=== PATIENT | male | born 1945 | race Caucasian/White ===

== ENCOUNTER 2020-03-04 10:54 | Emergency (ER) | payer MEDICARE, OTHER, SELFPAY ==
[2020-03-04 11:04] VITALS: BP 170/96; PULSE 86; RESP 18; TEMP 36.7; O2SAT 95; BMI 29.2
--- NOTE | 2020-03-04 11:23 | CT_ITS ---
WS: [id number] CT ABDOMEN AND PELVIS NONCONTRAST HISTORY: right flank pain TECHNIQUE: Imaging performed through the abdomen and pelvis. Coronal and sagittal reformats are submi tted. All CT scans at [facility] use at least one of these dose optimization techniques: automated exposure control; mA and/or kV adjustment per patient size (includes targeted exams where d ose is matched to clinical indication); or iterative reconstruction. DLP: 1817.56 mGy.cm COMPARISON: 01/20/2018 Lower thorax: Chronic emphysema at the lung bases. No pneumonia. Normal size heart. No hiatal hernia. Liver: Scattered hypodensities throughout the liver have been present on prior studies. Probably repr esenting cysts but cannot further characterize on this exam. There is hepatic steatosis. No bile duct dilatation. Gallbladder: Unremarkable. Pancreas: Normal. Spleen: Normal. Adrenal glands: Normal. Right kidney: Moderate perinephric stranding around the RIGHT kidney. There is mild dilatation of the RIGHT renal pelvis and RIGHT ureter. RIGHT ureter is mildly tortuous throughout its course. At the U V junction there is an ovoid calcification measuring 9 mm which does appear partially extruded into t he bladder. Additional nonobstructing stones scattered throughout the RIGHT renal pelvis. Left kidney: Mild perinephric stranding with no obstruction. 1.2 cm nonobstructing stone in the upper pole. Smaller stone in the lower pole. Normal caliber ureter. Mild atherosclerosis with no aneurysm. There is no free fluid or adenopathy. There is mild mesenteric misting centrally which was also prese nt on the prior study. No lymph nodes. GI tract: No GI tract obstruction. The appendix is not definitely visualized. No evidence for appendi citis. Abdominal wall: Intact. Pelvis: Well-distended urinary bladder. 2 mm calcification in the dependent urinary bladder at the nv dline. Mild prostate gland enlargement with central calcifications. Osseous structures: Slight anterior wedging of L5. No osteoblastic or osteolytic bone disease. CT/CT kidney stone [id number] IMPRESSION: 1. Mild RIGHT hydroureteronephrosis secondary to a 9 mm calcification at the U V junction. 2. Additional 2 mm calcification in the dependent portion of the mid urinary b ladder was probably recently extruded from the ureter. 3. Additional bilateral nephrolithiasis, nonobstructing. 4. Hepatic cysts and hepatic steatosis. 5. Mild prostate enlargement.
--- NOTE | 2020-03-04 11:25 | W.ED.ABDPA2 ---
HPI - Abdominal Pain General: Chief Complaint: Abdominal Pain Stated Complaint: back pain/ real sick Source: patient and family () Mode of arrival: ambulatory Limitations: no limitations History of Present Illness: HPI narrative: 74-year-old male patient with a remote history of lymphoma status post stem cell transplant presents to the emergency department with right flank pain radiating to the right upper quadrant region. Symptoms started about 1 to 2 weeks ago and waxes and wanes. Present symptoms started earlier this morning and is the worst it has been so far. He has associated nausea and vomiting. He is here for evaluation. MD elicited complaint: flank pain Onset (ago): hour(s) (9) Pain Consistency: constant Location: R flank Severity: severe Quality: sharp Radiation: RUQ Exacerbating factors: nothing Relieving factors: nothing Associated Symptoms: Reports nausea and vomiting; Denies chills, dysuria and fever(s) Review of Systems General: Reports: 10 or more systems reviewed and unremarkable except in HPI and below Const: Denies: fever(s), chills or body aches Eyes: Denies: change in vision or blurry vision Card: Reports: chest pain; Denies: palpitations, irregular heart rhythm, edema or swelling of feet/ankles Resp: Denies: dyspnea, productive cough or non-productive cough GI: Reports: nausea and vomiting : Reports: flank pain; Denies: dysuria, urinary frequency, urinary urgency or urinary hesitancy Musc: Denies: neck pain, back pain or extremity swelling Neuro: Denies: headache(s), numbness in extremities or weakness in extremities Endo: Denies: polyuria, polydipsia or tired all the time [facility] ED PFSH: Social History Smoking and tobacco status: former smoker Physical Exam Const: COMMON NORMALS: no acute distress, average body habitus, patient oriented x3, no limitations, healthy appearing, alert and well nourished HENMT: COMMON NORMALS: normocephalic, atraumatic and moist oral mucous membranes HEAD & SCALP: normocephalic and atraumatic Neck/C-Spine: COMMON NORMALS: no meningeal signs and no JVD Chest: COMMONS NORMALS: normal inspection of the chest and normal palpation of entire chest wall Resp: COMMON NORMALS: normal respiratory effort, No retractions, No use of accessory muscles, clear to auscultation bilaterally and percussion normal AUSCULTATION: clear to auscultation bilaterally PERCUSSION: percussion normal Cardio: COMMON NORMALS: no JVD, regular rate, regular rhythm, S1 normal heart sound present, S2 normal heart sound present, No gallops present (Cardio), No clicks present (Cardio), No murmurs present (Cardio), No rub (Cardio) and Peripheral pulses 2+ throughout RATE: regular rate RHYTHM: regular rhythm HEART SOUNDS: S1 normal heart sound present and S2 normal heart sound present PERIPHERAL PULSES: Peripheral pulses 2+ throughout GI: COMMON NORMALS: Normal to inspection, nondistended, normoactive bowel sounds present, Soft to palpation, non-tender, No hepatosplenomegaly present, no masses and no bruits PALPATION: Yes Soft to palpation and Yes No hepatosplenomegaly present : BLADDER/KIDNEY EXAM: Yes CVA tenderness on the right Back/Pelvis: GENERAL BACK: Yes CVA tenderness Extremity: COMMON NORMALS: normal to inspection, full ROM, capillary refill normal, no calf tenderness and no pedal edema Neuro: COMMON NORMALS: patient oriented x3 SENSORIUM/ORIENTATION: Yes alert MENINGEAL SIGNS: Yes no meningeal signs Course Reevaluation(s): Reevaluation #1: Pain has resolved. He feels much better Time: 13:14 Consultations: Consultation #1: Dr. Hidalgo, urology. He would like to see him in the office tomorrow. Since his pain is controlled and no signs of an infection he does not need to be admitted to the hospital. Time: 13:16 Vital Signs: Vital signs: Vital Signs Temperature 98.0 F 03/04/20 11:04 Pulse Rate 78 03/04/20 13:43 Respiratory Rate 20 H 03/04/20 13:43 Blood Pressure 148/84 03/04/20 13:43 Pulse Oximetry 96 03/04/20 13:43 MDM - Abdominal Pain MDM Narrative: Medical decision making narrative: 74-year-old male with new onset urolithiasis with hydronephrosis. He has a 9 mm UV junction calculus which is unlikely to pass. No signs of UTI or sepsis. Pain was well controlled with a single dose of IV ketorolac. He is discharged home to follow-up with the urologist tomorrow for management of the calculus, uncertain whether it cannot be lithotripsy or something different. Differential Diagnosis: Differential diagnosis abdominal pain: Likely abdominal pain, acute appendicitis, calculus of kidney, diverticulitis, gastroenteritis, pancreatitis and small bowel obstruction Medical Records: Attestation: I reviewed the patient's medical records. Lab Data: Attestation: I reviewed the patient's lab results. Labs: Lab Results 03/04/20 03/04/20 03/04/20 Range/Units 11:55 11:55 12:16 WBC 8.3 (4.0-10.0) 10^3/ uL RBC 4.42 (4.1-5.3) 10^6/u L Hgb 15.1 (11.7-16.6) g/dL Hct 43.7 (42.0-52.0) % MCV 98.9 H (80-94) fL MCH 34.2 H (28.0-34.0) pg MCHC 34.6 (30.0-36.0) g/dL RDW 12.1 (12.1-15.1) % Plt Count 125 L (130-400) 10^3/c mm MPV 9.0 (7.4-10.4) fL Neut % (Auto) 90.4 % Lymph % (Auto) 5.4 % [place] % (Auto) 3.5 % Eos % (Auto) 0.0 % Baso % (Auto) 0.2 % Neut # (Auto) 7.5 (1.8-7.7) 10^3/u L Lymph # (Auto) 0.5 L (0.8-4.8) 10^3/u L [place] # (Auto) 0.3 (0.2-0.9) 10^3/u L Eos # (Auto) 0.0 (0.0-0.8) 10^3/u L Baso # (Auto) 0.0 (0.0-0.1) 10^3/u L Nucleated RBC % (a uto) 0 % Nucleated RBCs # 0.0 /100WBC Sodium 139 (136-145) mmol/L Potassium 4.4 (3.5-5.1) mmol/L Chloride 103 (98-107) mmol/L Carbon Dioxide 22 (22-29) mmol/L Anion Gap 18.4 (5-19) BUN 21 (8-23) mg/dL Creatinine 2.0 H (0.7-1.2) mg/dL Glucose 205 H (65-115) mg/dL Calculated Osmolal ity 291 (285-295) mOsm/k g Calcium 10.0 (8.5-10.5) mg/dL Total Bilirubin 0.3 (0.15-1.2) mg/dL AST 20 (0-40) U/L ALT 26 (0-41) U/L Alkaline Phosphata se 100 (40-130) IU/L C-Reactive Protein 6.6 H (0.0-4.9) mg/L Total Protein 6.6 (6.6-8.7) g/dL Albumin 4.5 (3.5-5.2) g/dL Globulin 2.1 (1.3-4.6) g/dL Lipase 19 (13-60) U/L Urine Color Yellow (Yellow) Urine Appearance Clear (CLEAR) Urine pH 5 (5-7) Ur Specific Gravit y 1.025 (1.005-1.030) Urine Protein Neg (Negative) Urine Glucose (UA) Norm (Normal) Urine Ketones 1+ H (Negative) Urine Blood 3+ H (Negative) Urine Nitrate Negative (Negative) Urine Bilirubin Neg (NEGATIVE) Urine Urobilinogen Norm (Negative) mg/dL Ur Leukocyte Patrizia ase Negative (Negative) Urine RBC 40-50 H (0-2) /hpf Urine WBC 0-4 H (0-5) /hpf Ur Squamous Epith Cells 0-4 H (0-5) Calcium Oxalate Cr ystal 0-4 H /hpf Urine Bacteria Trace (NONE) Urine Mucus 1+ Imaging Data ^: CT Abd/Pel: Radiologist's impression: [place] [address] CT Scan Report Signed Patient: Bill Cadet Jr #: [id number] : 6Acct#:[id number] Age/Sex: 74 / MADM Date: 03/04/20 Loc: ERRoom/Bed: Attending Dr: Ordering Provider/Ordering MD: Brit Whiting MD, [facility] Date of Service: 03/04/20 Procedure(s): CT kidney stone 18985 Accession Number(s): [id number] Report Number: [id number] WS: [id number] CT ABDOMEN AND PELVIS NONCONTRAST HISTORY: right flank pain TECHNIQUE: Imaging performed through the abdomen and pelvis. Coronal and sagittal reformats are submitted. All CT scans at [facility] use at least one of these dose optimization techniques: automated exposure control; mA and/or kV adjustment per patient size (includes targeted exams where dose is matched to clinical indication); or iterative reconstruction. DLP: 1817.56 mGy.cm COMPARISON: 01/20/2018 Lower thorax: Chronic emphysema at the lung bases. No pneumonia. Normal size heart. No hiatal hernia. Liver: Scattered hypodensities throughout the liver have been present on prior studies. Probably representing cysts but cannot further characterize on this exam. There is hepatic steatosis. No bile duct dilatation. Gallbladder: Unremarkable. Pancreas: Normal. Spleen: Normal. Adrenal glands: Normal. Right kidney: Moderate perinephric stranding around the RIGHT kidney. There is mild dilatation of the RIGHT renal pelvis and RIGHT ureter. RIGHT ureter is mildly tortuous throughout its course. At the UV junction there is an ovoid calcification measuring 9 mm which does appear partially extruded into the bladder. Additional nonobstructing stones scattered throughout the RIGHT renal pelvis. Left kidney: Mild perinephric stranding with no obstruction. 1.2 cm nonobstructing stone in the upper pole. Smaller stone in the lower pole. Normal caliber ureter. Mild atherosclerosis with no aneurysm. There is no free fluid or adenopathy. There is mild mesenteric misting centrally which was also present on the prior study. No lymph nodes. GI tract: No GI tract obstruction. The appendix is not definitely visualized. No evidence for appendicitis. Abdominal wall: Intact. Pelvis: Well-distended urinary bladder. 2 mm calcification in the dependent urinary bladder at the midline. Mild prostate gland enlargement with central calcifications. Osseous structures: Slight anterior wedging of L5. No osteoblastic or osteolytic bone disease. CT/CT kidney stone [id number] IMPRESSION: 1. Mild RIGHT hydroureteronephrosis secondary to a 9 mm calcification at the UV junction. 2. Additional 2 mm calcification in the dependent portion of the mid urinary bladder was probably recently extruded from the ureter. 3. Additional bilateral nephrolithiasis, nonobstructing. 4. Hepatic cysts and hepatic steatosis. 5. Mild prostate enlargement. Dictated By:Marcella Gracia DO Signed By:Marcella Gracia DOSigned Date/Time:03/04/20 1226 DD/ 1214 Discharge Plan Discharge Patient Disposition: Home, Self-Care Clinical Impression: Calculus of kidney, Hydronephrosis concurrent with and due to calculi of kidney and ureter Condition: Stable Prescriptions: [place] 5-325 mg tablet 1 tab PO Q6H PRN (Reason: pain) Qty: 30 RF: 0 Continued Multiple Vitamins Tablet 1 tab PO DAILY RF: 0 cetirizine 10 mg tablet 10 mg PO DAILY RF: 0 Tylenol Extra Strength 500 mg Tablet 1,000 mg PO PRN RF: 0 tamsulosin 0.4 mg capsule 0.8 mg PO BEDTIME RF: 0 omeprazole 20 mg capsule,delayed release(DR/EC) 20 mg PO DAILY PRN (Reason: unknown) RF: 0 Tylenol PM Extra Strength 25-500 mg Tablet 1 tab PO PRN RF: 0 potassium gluconate 595 mg (99 mg) Tablet 595 mg PO DAILY RF: 0 Probiotic 1 cap PO DAILY RF: 0 Vitamin D3 1 cap PO DAILY RF: 0 Discharge Orders: Discharge Order (Routine); Ordered 03/04/20 Ordered By: Brit Whiting Referrals: Juan Jose Hidalgo MD [Physician] - 03/05/20 7:15 am Salo Spann MD [Family Provider] - Discharge Diet: Usual diet Discharge Activity: Resume usual activity Patient Instructions: Kidney Stones (ED) Activity Restrictions/Additional Instructions: Return for any new or worsening symptoms. Follow-up with Dr. Hidalgo tomorrow as scheduled. Come to the hospital at 7:15 in the morning for an x-ray then proceed to Dr. Hidalgo's office immediately after for evaluation and surgery. Do not eat or drink anything after midnight tonight as you are likely going to have surgery tomorrow. Take the pain medication as needed. Discharge Date/Time: 03/04/20 13:50 Coding Level of Care Code ED Protective Services Social Worker for g Fwd Exam Comprehensive
[2020-03-04] MEDS: ketorolac 30 mg/mL INJ IVP (11:51)
[2020-03-04 12:00] LABS: Basophils % 0.2 %; Hematocrit 43.7 % (42.0-52.0); Hemoglobin 15.1 g/dL (11.7-16.6); Lymphocytes # 0.5 10^3/uL (0.8-4.8); Lymphocytes % 5.4 %; Mean Corpuscular HGB Conc 34.6 g/dL (30.0-36.0); Mean Corpuscular Hemoglobin 34.2 pg (28.0-34.0); Mean Corpuscular Volume 98.9 fL (80-94); Monocytes # 0.3 10^3/uL (0.2-0.9); Monocytes % 3.5 %; Neutrophils # 7.5 10^3/uL (1.8-7.7); Neutrophils % 90.4 %; Nucleated Red Blood Cells % 0 %; Platelet Count 125 10^3/cmm (130-400); Red Blood Count 4.42 10^6/uL (4.1-5.3); Red Cell Distribution Width 12.1 % (12.1-15.1); White Blood Count 8.3 10^3/uL (4.0-10.0)
[2020-03-04 12:14] LABS: Alanine Aminotransferase 26 U/L (0-41); Albumin Level 4.5 g/dL (3.5-5.2); Alkaline Phosphatase 100 IU/L (40-130); Anion Gap 18.4 (5-19); Aspartate Amino Transferase 20 U/L (0-40); Blood Urea Nitrogen 21 mg/dL (8-23); C Reactive Protein 6.6 mg/L (0.0-4.9); Carbon Dioxide 22 mmol/L (22-29); Chloride 103 mmol/L (98-107); Globulin 2.1 g/dL (1.3-4.6); Glucose 205 mg/dL (65-115); Lipase 19 U/L (13-60); Osmolality Calculated 291 mOsm/kg (285-295); Potassium 4.4 mmol/L (3.5-5.1); Sodium 139 mmol/L (136-145); Total Bilirubin 0.3 mg/dL (0.15-1.2); Total Protein 6.6 g/dL (6.6-8.7)
[2020-03-04 12:29] LABS: Bilirubin Urine Neg (NEGATIVE); Blood Urine 3+ (Negative); Glucose Urine UA Norm (Normal); Ketones Urine 1+ (Negative); Leukocyte Esterase Urine Negative (Negative); Nitrate Urine Negative (Negative); Protein Urine Neg (Negative); Specific Gravity, Urine 1.025 (1.005-1.030); Urine Appearance Clear (CLEAR); Urine Color Yellow (Yellow); Urobilinogen Urine Norm (Negative); pH Urine 5 (5-7)
[2020-03-04 12:30] LABS: Add Urine Microscopic? YES
[2020-03-04 12:37] LABS: RBC Urine 40-50 /hpf (0-2); WBC Urine 0-4 /hpf (0-5)
[2020-03-04 12:38] LABS: Add Urine Culture? No; Bacteria Urine TRACE; Calcium Oxalate Crystals Urine 0-4 /hpf; Mucus Urine 1+; Squamous Epithelial Cell Urine 0-4 (0-5)
--- NOTE | 2020-03-04 13:36 | DCPLANNER ---
telecommunications project manager was asked to schedule a follow up appointment for patient with Dr. Hidalgo for tomorrow, 03.05.20. telecommunications project manager called the office of Dr. Hidalgo, spoke with Anay, gave clinic patients information, rehabilitation caseworker told clinic that Dr. Hidalgo wants to see patient tomorrow. A follow up appointment was scheduled for , 03.05.20, with Dr. Hidalgo at 7:15 at hospital for x rays than patient is to go straight to Dr. Weston office. Patient is also to be NPO after midnight. telecommunications project manager informed ED physician, and nurse about appointment. telecommunications project manager informed patient of the scheduled appointment, to go the to hospital for xray, then go to Dr. Weston office, and that he is to NPO after midnight.
[2020-03-04 13:43] VITALS: BP 148/84; PULSE 78; RESP 20; O2SAT 96
--- NOTE | 2020-03-26 14:04 | DCPLANNER ---
Patient did attend appointment scheduled for 03.05.[address] Hidalgo.
== END 2020-03-04 13:50 | disposition home or self-care (01) ==
PROVIDERS: Physician Assistant; Emergency Provider Family Medicine; Family Provider Family Medicine
DX: N13.30 Unspecified hydronephrosis (principal); N20.2 Calculus of kidney with calculus of ureter; Z87.891 Personal history of nicotine dependence
CPT/HCPCS: 12345; 36415; 74176; 80053; 81001; 83690; 85025; 86140; 96374; 96375; 99283; J1885

== ENCOUNTER 2020-03-05 07:17 | Outpatient (CLI) | payer MEDICARE, OTHER, SELFPAY ==
--- NOTE | 2020-03-05 07:15 | XR_ITS ---
WS: [id number] ABDOMEN 1 VIEW(S) HISTORY: calculus COMPARISON: 03/04/2020 CT. Normal bowel gas pattern. Recently described distal RIGHT ureteral calcification is again identified measuring 6.4 mm near the UV junction. Additional bilateral calcifications over each kidney. The largest measures 13 mm over th e upper pole of the LEFT kidney. No bone abnormality. XR/XR KUB [id number] IMPRESSION: 1. No change in position of the 6.4 mm calcification at the RIGHT UVJ. 2. Bilateral nephrolithiasis.
== END 2020-03-05 07:18 | disposition home or self-care (01) ==
LOC: RAD 07:17
PROVIDERS: Visit Provider Urology
DX: N20.0 Calculus of kidney (principal); N28.89 Other specified disorders of kidney and ureter
CPT/HCPCS: 74018; 81001

== ENCOUNTER 2020-03-13 09:36 | Outpatient (CLI) | payer MEDICARE, OTHER, SELFPAY ==
--- NOTE | 2020-03-13 09:30 | XR_ITS ---
WS: [id number] XR KUB [id number] REASON FOR EXAM: Stone FINDINGS: A prominent stone is seen in the left kidney measures 10.39 mm. The lateral right kidney shows smaller stones measuring approximately 3 mm. There is no stones in the region of the ureters or bladder. There is nonspecific gas and fecal stasis. XR/XR KUB 44801 IMPRESSION: Bilateral renal calculus. Note on previous exam a calcified density was seen ju st within the confines of the imaging of the bladder but this is not changed ap pears to be a phlebolith today.
== END 2020-03-13 09:37 | disposition home or self-care (01) ==
LOC: RAD 09:40
PROVIDERS: PCP Emergency Medicine Emergency Medical Services; Visit Provider Urology
DX: N20.0 Calculus of kidney (principal)
CPT/HCPCS: 74018; 81001

== ENCOUNTER 2020-03-16 14:35 | Day surgery (SDC) | payer MEDICARE, OTHER, SELFPAY ==
[2020-03-13 13:29] VITALS: BMI 29.2
--- NOTE | 2020-03-16 | SCC_ITS ---
Procedure Done: 1. Cystoscopy, right retrograde ureteropyelogram, right ureteroscopy, laser lithotripsy, stent 25.8 seconds of fluoroscopic guidance, for a cumulative dose of 8.19 mGy, was provided to Dr. Hidalgo by the radiology department. C-arm images of the abdomen were saved for the patient's permanent record. [facility]
--- NOTE | 2020-03-16 14:52 | SC_ITS ---
WS: [id number] C-ARM RADIOGRAPHS ABDOMEN; IMAGES HISTORY: Right ureteral stone scheduled for ureteroscopic treatment COMPARISON: 03/16/2020 Intraoperative imaging during cystoscopy and RIGHT double pigtail ureteral stent placement. SC/C-arm FL for Urology IMPRESSION: Intraoperative imaging during RIGHT ureteral stent placement.
--- NOTE | 2020-03-16 14:52 | XRR_ITS ---
PROCEDURE INFORMATION: Exam: XR Abdomen, 1 View Exam date and time: 03/16/2020 3:32 PM Age: 74 years old Clinical indication: Screening exam; Other: Pre op; Additional info: Preop right ureteroscopy TECHNIQUE: Imaging protocol: XR of the abdomen. Views: Frontal supine view of the abdomen. 1 View. COMPARISON: CR XR KUB [id number] 03/13/2020 10:08 AM FINDINGS: Gastrointestinal tract: The bowel gas pattern is nonspecific. Bones/joints: Unremarkable. A caliceal stone is present in the left kidney measuring 8 mm x 11 mm this finding is stable since prior examination. XR/XR KUB 95354 IMPRESSION: No acute GI abnormality Stable caliceal stone left kidney
[2020-03-16 15:01] VITALS: BP 145/99; PULSE 83; RESP 18; TEMP 36.8; O2SAT 96
[2020-03-16] MEDS: sodium chloride 0.9% 1,000 ML 30 ML IV (15:15)
--- NOTE | 2020-03-16 15:30 | ANES.PREANE2 ---
Pre-Anesthetic Assessment Pre-Anesthetic Assessment: Height/Weight: Height 1.8 m Weight 95.254 kg Temp Pulse Resp BP Pulse Ox 98.3 F 83 18 145/99 96 03/16/20 15:01 03/16/20 15:01 03/16/20 15:01 03/16/20 15:01 03/16/20 15:01 Preop Diagnosis: Refractory right distal ureteral stone Proposed Procedure: Operation Date: 03/16/20 16:40 Proposed Procedures p Cystoscopy 21026 40981 N20.1(Not Applicable) - Juan Jose Hidalgo MD s Retrograde Pyelogram(Right) - MD jena Arciniega Flexible Ureteroscopy(Not Applicable) - MD jena Arciniega Laser Lithotripsy(Not Applicable) - MD jena Arciniega Ureteral Stent Placement(Not Applicable) - Juan Jose Hidalgo MD Last intake: Intake Last Liquid Date 03/16/20 Last Liquid Time 07:00 Last Solid Date 03/16/20 Last Solid Time 07:00 Social: Social History: No alcohol and No tobacco Exam: Pre-Anes Outpt Exam: alert, oriented x 3, clear to auscultation bilaterally and regular rate & rhythm Airway: Submandibular: WNL Cervical ROM: WNL MP: 2 History/ROS: No significant history except as noted Pulmonary: Pulmonary: None reported CV/HEM: CV/HEM: None reported : Comments: Kidney Stones Hepatic: Hepatic: None reported GI: GI: GERD Metabolic: Comments: Non-Hodgkins Lymphoma Musc/skel: Musc/skel: None reported Neuropsych: Neuropsych: None reported Anesthetic Plan: ASA status: 3 Anesthesia: General Risk of > 500 ml blood loss (7ml/kg in children): No Meds/Allergies Current Medications: Current Medications Generic Name Dose Route Start Last Admin Trade Name Freq PRN Reason Stop Dose Admin Sodium Chloride 1,000 mls @ 30 ml s/hr 03/16/20 08:00 03/16/20 15:15 Sodium Chloride 0.9% IV 03/17/20 07:59 30 mls/hr .Q24H LEIGHANN Administration PFSH Anesthesia PFSH: Medical History Non-Hodgkins lymphoma Renal calculi Right distal ureteral calculus Family History Father , at age 54 Diabetes Heart attack Mother Hypertension Social History Smoking and tobacco status: former smoker Alcohol intake: never Marital status: Current occupational status: employed History of recent travel: No Data Anesthesia Cardiac Studies: No Data to Display
--- NOTE | 2020-03-16 16:35 | W.PM.OPSUD ---
Surgery/Procedure H&P Update DATE OF PROCEDURE: March 16, 2020 DATE H&P PERFORMED: 03/13/20 H&P UPDATE INFORMATION: I have reviewed H&P completed within last 30 days, I have examined patient prior to procedure and No changes to prior documentation PREOP DIAGNOSIS: Refractory right distal ureteral stone PLANNED PROCEDURE: Operation Date: 03/16/20 16:40 Proposed Procedures p Cystoscopy 67056 31971 N20.1(Not Applicable) - Juan Jose Hidalgo MD s Retrograde Pyelogram(Right) - MD jena Arciniega Flexible Ureteroscopy(Not Applicable) - MD jena Arciniega Laser Lithotripsy(Not Applicable) - MD jena Arciniega Ureteral Stent Placement(Not Applicable) - Juan Jose Hidalgo MD
--- NOTE | 2020-03-16 16:35 | PM.OP ---
Operative Report Date of procedure: March 16, 2020 Pre-op Diagnosis: Refractory right distal ureteral stone Post-op diagnosis: same Procedure Done: 1. Cystoscopy, right retrograde ureteropyelogram, right ureteroscopy, laser lithotripsy, stent Pathology: Stone fragments Surgeon: Gwen Anesthesia: General Estimated blood loss: Minimal Urine output: Not measured Complications: None Condition: stable Disposition: PACU Brief History: Mr. Murrieta is a very pleasant 74-year-old white male with a obstructing right distal ureteral stone that failed to progress on conservative management initially. Was having intermittent pain even as recently as today. We reviewed treatment options including ESWL, endoscopy, further waiting to see if he could pass it and ultimately chose to proceed with endoscopy as a more definitive approach given his tight timeline regarding returning to work. Procedure: After routine preoperative evaluation examination and obtaining of informed consent he was taken to the operating suite on 03/16/2020 where general anesthesia was administered without difficulty after appropriate timeout was performed, SCDs confirmed to be functioning, preoperative antibiotics administered, beta-frankie protocol confirmed. Prepped and draped in usual sterile fashion in dorsolithotomy position pain careful attention to voiding pressure points. 21 [place] cystoscope with 30 degree lens was introduced into urethral meatus and advanced into the bladder under videoscopy. Bladder was systematically examined found to be within normal limits. 2 small stones were seen floating free in the bladder. An 8 [place] cone-tipped catheter was intubated into the right ureteral orifice for right retrograde ureteropyelogram which demonstrated normal caliber and course of the distal ureter below the stone, stone in the expected position identified by filling defect, and ureter proximal to the stone showing dilation. No other stones were seen. Flexible tip guidewire was then advanced up the right ureter bypassing the stone curling in the area of the upper renal calyx. The distal ureter below the stone was dilated with a 15 [place] 4 cm balloon to no waist. The wire was secured to the drapes as a safety wire and then a 7.5 [place] offset semirigid ureteroscope was advanced next to the wire up the ureter to the level of the stone and a second stent was also identified both of which were encountered in the expected position. A 365 ?m homing laser fiber was utilized to fragment the stones into small pieces that were then flushed free, removed with basketing and grasping forceps. Final inspection showed no residual significant fragments. Cystoscope was backloaded over the guidewire and a 6 [place] by 28 cm double-pigtail stent was advanced over the guidewire through the cystoscope into appropriate position as confirmed via fluoroscopy and cystoscopy. A string was left attached to the distal end. Tolerated procedure well without complications and was awakened in the operating room and returned to the care of room in stable condition. PLANS: 1. Can remove the stent himself later this week pending his going back to work. If he prefers he can come to the office to have it removed. Follow-up in the office in 3 months with a KUB if he chooses to remove the stent with the string himself.
[2020-03-16] MEDS: levofloxacin-dextrose 5 % 500 MG/100 ML PREMIX 100 MG IV (16:50)
[2020-03-16] MEDS: iohexol 300 mg/mL 50 mL Btl (OR ONLY) XX (17:26)
[2020-03-16 17:48] VITALS: BP 145/87; PULSE 97; RESP 16; TEMP 36.5; O2SAT 95
--- NOTE | 2020-03-16 17:52 | SUR.PHASEI ---
1748 PATIENT TO PACU AT THIS TIME FROM OR. RR EVEN AND UNLABORED. SPO2 95% ON RA.
[2020-03-16 17:55] VITALS: BP 158/81; PULSE 93; RESP 24; O2SAT 94
[2020-03-16 18:00] VITALS: BP 159/96; PULSE 92; RESP 26; O2SAT 93
[2020-03-16 18:05] VITALS: BP 156/99; PULSE 88; RESP 16; TEMP 36.3; O2SAT 95
--- NOTE | 2020-03-16 18:10 | SUR.PHASEI ---
1800 PATIENT TO OPS AT THIS TIME FROM OR. PAIN 5/10, BURNING TO PENIS. DENIES NAUSEA. TOLERATING ICE CHIPS.
[2020-03-16 18:39] VITALS: BP 133/88; PULSE 87; RESP 18; O2SAT 96
[2020-03-21 22:51] LABS: Stone Source URETERAL STONE
== END 2020-03-16 18:40 | disposition home or self-care (01) ==
PROVIDERS: PCP Emergency Medicine Emergency Medical Services; Visit Provider Urology
PROC: 0TJB8ZZ Inspection of Bladder, Via Natural or Artificial Opening Endoscopic (ICD-10-PCS; CPT 52000; principal; 2020-03-16 16:40)
PROC: (CPT 74420; 2020-03-16 16:40)
PROC: 0TJ98ZZ Inspection of Ureter, Via Natural or Artificial Opening Endoscopic (ICD-10-PCS; CPT 52351; 2020-03-16 16:40)
PROC: (CPT 52356; 2020-03-16 16:40)
PROC: (CPT 50605; 2020-03-16 16:40)
DX: N20.1 Calculus of ureter (principal); K21.9 Gastro-esophageal reflux disease without esophagitis; C85.90 Non-Hodgkin lymphoma, unspecified, unspecified site; Z87.891 Personal history of nicotine dependence
CPT/HCPCS: 52356; 12345; 74018; 76000; 82365; 88300; C1725; C2625; J1956; J2001; J2704; J2710; J3010; J3490; J7030

== ENCOUNTER 2020-06-02 08:21 | Outpatient (CLI) | payer MEDICARE, OTHER, SELFPAY ==
--- NOTE | 2020-06-02 08:27 | MR_ITS ---
WS: [id number] MRI HEAD WITHOUT CONTRAST IACs TECHNIQUE: Sagittal T1, T2 axial, T2 axial FLAIR, axial and coronal T1 images, axial susceptibility w eighted imaging, axial diffusion weighted images, and coronal T2 images were obtained. High-resolutio n axial and coronal T2 imaging with attention to the IACs CLINICAL INFORMATION: DIZZINESS AND GIDDINESS COMPARISON: MRI 2 12,013 FINDINGS: No evidence of restricted diffusion to suggest acute ischemia. Ventricular system and basal cisterns are patent. Moderate small vessel changes. Moderate parenchymal volume loss. Cavum septum pellucidum and vergae. Normal posterior fossa. Normal vascular flow voids at the skull base. Paranasal sinuses a nd mastoid air cells well aerated. No hemosiderin on the susceptibility weighted images. Proximal 7th and 8th cranial nerves are normal in appearance. Normal trigeminal nerve root entry zone s. Mild symmetric atrophy involving the temporal lobes and hippocampal formations. MR/MR iac's wo con [id number] IMPRESSION: 1. No evidence of restricted diffusion to suggest acute ischemia. 2. Mild small vessel changes with moderate parenchymal volume loss. 3. Proximal 7th and 8th cranial nerves are normal in appearance. Normal trigem inal nerve root entry zones. 4. Mild mucosal thickening in the mastoid air cells. Paranasal sinuses are wel l aerated.
== END 2020-06-02 08:22 | disposition home or self-care (01) ==
LOC: RADSHAW 08:24
PROVIDERS: PCP Emergency Medicine Emergency Medical Services; Visit Provider Specialist
DX: R42 Dizziness and giddiness (principal)
CPT/HCPCS: 70551

== ENCOUNTER 2020-06-03 09:35 | Outpatient (CLI) | payer MEDICARE, OTHER, SELFPAY ==
--- NOTE | 2020-06-03 09:30 | XRR_ITS ---
PROCEDURE INFORMATION: Exam: XR Abdomen, 1 View Exam date and time: 06/03/2020 9:54 AM Age: 74 years old Clinical indication: Condition or disease; Kidney or ureter condition; Other: Stone TECHNIQUE: Imaging protocol: XR of the abdomen. Views: Frontal supine view of the abdomen. 1 View. COMPARISON: CR XR KUB [id number] 03/16/2020 3:27 PM FINDINGS: Gastrointestinal tract: No dilated gas-filled loops of bowel. Organs: There is a dominant 11 mm left renal calculus. This is unchanged. There appears to be a new smaller adjacent calculus measuring approximately 4-5 mm in size. There is a 4-5 mm x 2 mm calculus in the inferior pole the left kidney, not significantly changed. No radiopaque right renal calculus is identified. However, the right kidney is at least partially obscured by enteric contents in overlying bowel. Bones/joints: No acute osseous abnormality. XR/XR KUB [id number] IMPRESSION: Left nephrolithiasis, suspected to be slightly worse.
== END 2020-06-03 09:36 | disposition home or self-care (01) ==
LOC: RAD 09:41
PROVIDERS: PCP Emergency Medicine Emergency Medical Services; Visit Provider Urology
DX: N20.0 Calculus of kidney (principal)
CPT/HCPCS: 74018; 81001

== ENCOUNTER 2021-01-13 09:48 | Outpatient (CLI) | payer MEDICARE, OTHER, SELFPAY ==
--- NOTE | 2021-01-13 | US_ITS ---
WS: [id number] ULTRASOUND RENAL TECHNIQUE: Ultrasound examination of both kidneys. CLINICAL INFORMATION: URINARY RETENTION COMPARISON: None. FINDINGS: RIGHT: Right kidney is normal in size and appearance. Echogenicity: Normal. Cortical thickness: 1.6 cm; Normal. Hydronephrosis: None. Perinephric fluid: None. Right kidney measures: 10.2 cm x 5.2 cm x 5.7 cm. LEFT: Non-obstructing 14 mm left inferior pole renal calculus. Left kidney is normal in size and appearance. Echogenicity: Normal. Cortical thickness: 1.1 cm; Normal. Hydronephrosis: None. Perinephric fluid: None. Left kidney measures: 8.7 cm x 5.0 cm x 5.4 cm. Normal visualized aorta. Normal bladder. US/US renal BI* [id number] IMPRESSION: 1. Nonobstructing 14 mm left renal parenchymal calculus. 2. No hydronephrosis in either kidney. 3. Normal bladder.
[2021-01-13 12:18] LABS: Alanine Aminotransferase 16 U/L (0-41); Albumin Level 4.3 g/dL (3.5-5.2); Alkaline Phosphatase 79 IU/L (40-130); Anion Gap 13.3 (5-19); Aspartate Amino Transferase 15 U/L (0-40); Blood Urea Nitrogen 18 mg/dL (8-23); Calcium 9.2 mg/dL (8.5-10.5); Carbon Dioxide 27 mmol/L (22-29); Chloride 108 mmol/L (98-107); Globulin 1.9 g/dL (1.3-4.6); Glucose 97 mg/dL (65-115); Osmolality Calculated 300 mOsm/kg (285-295); Potassium 4.3 mmol/L (3.5-5.1); Sodium 144 mmol/L (136-145); Total Bilirubin 0.4 mg/dL (0.15-1.2); Total Protein 6.2 g/dL (6.6-8.7)
== END 2021-01-13 09:49 | disposition home or self-care (01) ==
LOC: US 09:50
PROVIDERS: PCP Emergency Medicine Emergency Medical Services; Visit Provider Nurse Practitioner Family
DX: R33.9 Retention of urine, unspecified (principal); N20.0 Calculus of kidney
CPT/HCPCS: 36415; 76770; 80053

== ENCOUNTER 2021-02-15 13:13 | Outpatient (CLI) | payer MEDICARE, OTHER, SELFPAY ==
--- NOTE | 2021-02-15 13:19 | XRR_ITS ---
PROCEDURE INFORMATION: Exam: XR Abdomen Exam date and time: 02/15/2021 1:20 PM Age: 75 years old Clinical indication: Condition or disease; Kidney or ureter condition; Calculus (stone) in kidney; Patient HX: HX of non hodgkins lymphoma; Additional info: Renal calculi TECHNIQUE: Imaging protocol: XR of the abdomen. Views: Frontal supine view of the abdomen. 1 View. COMPARISON: CR XR KUB [id number] 06/03/2020 9:49 AM FINDINGS: Gastrointestinal tract: Normal. No bowel dilation. Organs: A caliceal stone is seen in the central collecting system of the left kidney stable since prior examination. This finding measures 10 mm Bones/joints: Unremarkable. XR/XR KUB [id number] IMPRESSION: 1. No acute findings. 2. Stable left urinary tract stone
== END 2021-02-15 13:14 | disposition home or self-care (01) ==
LOC: RAD 13:16
PROVIDERS: PCP Emergency Medicine Emergency Medical Services; Visit Provider Urology
DX: N21.0 Calculus in bladder (principal)
CPT/HCPCS: 74018; 81003

== ENCOUNTER 2021-03-24 13:33 | Observation (INO) | payer MEDICARE, OTHER, SELFPAY ==
[2021-03-24] VITALS (10 sets, daily range): BP systolic 104–133; BP diastolic 53–71; PULSE 78–87; RESP 16–22; TEMP 36.6–37; O2SAT 93–97; BMI 27.5
--- NOTE | 2021-03-24 15:46 | ECG_ITS ---
[facility] Test Date: 2021-03-24 Pat Name: Seth Cadet Jr Department: Room: Gender: Male [employer]: : [id number] Requested By: Paulie Sharif Order Number: [id number] Rajwinder MD: Rigo Guy M.D. Measurements Intervals [place] Rate: 81 P: -1 VT: 148 QRS: -37 QRSD: 136 T: 11 QT: 397 QTc: 461 Interpretive Statements SINUS RHYTHM WITH OCCASIONAL VENTRICULAR PREMATURE COMPLEXES MARKED LEFT AXIS DEVIATION [QRS AXIS < -30] RIGHT BUNDLE BRANCH BLOCK [120+ ms QRS DURATION, UPRIGHT V1, 40+ ms S IN I/aVL/V4/V5/V6] MINIMAL VOLTAGE CRITERIA FOR LVH, CONSIDER NORMAL VARIANT [MEETS CRITERIA IN ONE OF: R(aVL), S(V1), R(V5), R(V5/V6)+S(V1)] No previous ECG available for comparison Electronically Signed On 03-24-2021 17:47:25 CDT by Rigo Guy M.D. [email or web address]
--- NOTE | 2021-03-24 15:46 | XR_ITS ---
WS: [id number] Exam: XR chest 1V portable [id number] Date/Time of Exam: 03/24/2021 3:52 PM Reason For Exam: cough with yellow sputum Comparison 01/20/2018. The lungs are fully expanded. Coarsening of interstitial markings probably representing chronic luna e. No consolidated infiltrates or pleural effusions. Normal cardiomediastinal structures. Regional [place] elements are intact. XR/XR chest 1V portable [id number] IMPRESSION: 1. Coarsening of interstitial markings throughout both lungs probably chronic i n nature. No consolidated infiltrates identified.
--- NOTE | 2021-03-24 15:49 | ED_ITS ---
Documented by User: MARCOS Wu 03/25/21 20:49 HPI - General Adult General: Chief complaint: General Medical Stated complaint: ABD PAIN, N/V Time Seen by Provider: 03/24/21 15:36 History of Present Illness: HPI narrative: Patient is a 75-year-old male comes to the ED with abdominal pain and weakness. Patient was seen at the emergency department and [facility] on Monday and diagnosed with bronchitis and discharged home with a Z-Fransisco. He was tested for COVID-19 there as well and it was negative. Patient's been taking the Z-Fransisco and he has not felt like he has had any improvement. He also now has developed some severe episode lower abdominal pain. He has had a productive cough for almost a week and he says he spits up yellow sputum. Cough is still not improved since being on Z-Fransisco. He says that his appetite has decreased as well and he has generalized weakness. Denies chest pain, fevers, chills, nausea/vomiting, dysuria, hematuria, diarrhea, blood in the stool, black tarry stool. Associated symptoms: Reports malaise; Deny chest pain, dyspnea, headache(s), nausea, rash, palpitations or vomiting Review of Systems Const: Reports: change in appetite (decreased), fatigue (Generalized weakness) and malaise; Denies: fever(s) or chills Eyes: Denies: change in vision or eye discomfort ENMT: Reports: nasal discharge and nasal congestion; Denies: throat pain or odynophagia Card: Denies: chest pain, palpitations, edema, swelling of feet/ankles, dyspnea on exertion or orthopnea Resp: Reports: productive cough and change in phlegm color (Yellow); Denies: dyspnea or non-productive cough GI: Reports: abdominal pain; Denies: nausea, vomiting, diarrhea, constipation, hematochezia or melena : Denies: flank pain, difficulty urinating, dysuria or hematuria Musc: Denies: neck pain, back pain or extremity swelling Skin/Breast: Denies: rash or new lesions Neuro: Denies: headache(s), numbness in extremities or weakness in extremities PFS ED PFSH: Medical History BPH loc w urin obs/LUTS Incomplete bladder emptying Non-Hodgkins lymphoma Renal calculi Right distal ureteral calculus Family History Father , at age 54 Diabetes Heart attack Mother Hypertension Social History Smoking and tobacco status: former smoker Alcohol intake: never Marital status: Current occupational status: employed History of recent travel: No Physical Exam Const: COMMON NORMALS: no acute distress, patient oriented x3 and alert GENERAL APPEARANCE: cooperative and comfortable HENMT: COMMON NORMALS: normocephalic HEAD & SCALP: normocephalic MOUTH: Normal oral and palatal mucosa present THROAT: posterior oropharynx normal and uvula midline Neck/C-Spine: COMMON NORMALS: supple GENERAL: Yes normal visual inspection Resp: COMMON NORMALS: normal respiratory effort, No retractions, No use of accessory muscles and clear to auscultation bilaterally EFFORT & INSPECTION: Yes able to speak in complete sentences, No tachypneic, No respiratory distress, No labored and Yes Actively coughing productive AUSCULTATION: clear to auscultation bilaterally Cardio: COMMON NORMALS: regular rate, regular rhythm, S1 normal heart sound present, S2 normal heart sound present, No gallops present (Cardio), No clicks present (Cardio), No murmurs present (Cardio) and Peripheral pulses 2+ throughout RATE: regular rate RHYTHM: regular rhythm HEART SOUNDS: S1 normal heart sound present and S2 normal heart sound present PERIPHERAL PULSES: Peripheral pulses 2+ throughout GI: COMMON NORMALS: Normal to inspection, nondistended, normoactive bowel sounds present, Soft to palpation and no masses PALPATION: Yes Soft to palpation and Yes Tenderness to palpation present (GI) (Generalized lower abdominal tenderness. No focal point tenderness) Details: LLQ and RLQ : COMMON NORMALS: Yes no CVA tenderness BLADDER/KIDNEY EXAM: Yes no CVA tenderness Back/Pelvis: COMMON NORMALS: no CVA tenderness Extremity: COMMON NORMALS: normal to inspection and no pedal edema Neuro: COMMON NORMALS: patient oriented x3 and moves all extremities SENSORIUM/ORIENTATION: Yes alert Skin: GENERAL SKIN EXAM: dry skin Procedures Stool Hemoccult Procedural Steps Taken: stool placed in appropriate test area, developer placed on stool and control areas and controls appropriately positive and negative Hemoccult result: negative Additional Comments: digital rectal exam performed to obtain test. Course Vital Signs: Vital signs: Vital Signs Temperature 97.9 F 03/25/21 16:23 Pulse Rate 75 03/25/21 19:57 Respiratory Rate 14 03/25/21 19:57 Blood Pressure 127/81 03/25/21 19:57 Pulse Oximetry 93 03/25/21 19:57 [facility] - General Adult Lab Data: Attestation: I reviewed the patient's lab results. Labs: Lab Results 03/24/21 03/24/21 03/24/21 Range/Units 15:56 15:56 15:56 WBC 5.5 (4.0-10.0) 10^3/ uL RBC 3.56 L (4.1-5.3) 10^6/u L Hgb 7.8 L (11.7-16.6) g/dL Hct 25.8 L (42.0-52.0) % MCV 72.5 L (80-94) fL MCH 21.9 L (28.0-34.0) pg MCHC 30.2 (30.0-36.0) g/dL RDW 27.8 H (12.1-15.1) % Plt Count 180 (130-400) 10^3/c mm MPV 13.0 H (7.4-10.4) fL Lymph % (Auto) Not Reportable [place] % (Auto) Not Reportable Lymph # (Auto) Not Reportable [place] # (Auto) Not Reportable Total Counted (0-100) Atypical Lymphs % (0-5) % Segmented Neutroph ils % Band Neutrophils % Lymphocytes (Manua l) % Monocytes (Manual) % Eosinophils (Manua l) % Basophils (Manual) % Metamyelocytes % Promyelocytes % Platelet Estimate (Normal) Dimorphic RBCs 2+ H Poikilocytosis 3+ H Microcytosis Trace Macrocytosis Trace Ovalocytes 1+ H Schistocytes 1+ H Sodium 132 L (136-145) mmol/L Potassium 4.0 (3.5-5.1) mmol/L Chloride 95 L (98-107) mmol/L Carbon Dioxide 24 (22-29) mmol/L Anion Gap 17.0 (5-19) BUN 24 H (8-23) mg/dL Creatinine 1.3 H (0.7-1.2) mg/dL GFR Calculation Not Reportable Glucose 138 H (65-115) mg/dL Calculated Osmolal ity 280 L (285-295) mOsm/k g Calcium 8.3 L (8.5-10.5) mg/dL Total Bilirubin 0.7 (0.15-1.2) mg/dL AST 31 (0-40) U/L ALT 30 (0-41) U/L Alkaline Phosphata se 82 (40-130) IU/L Troponin T Baselin e 24 H (0-15) ng/L Troponin T 120 Min [place] (0-15) ng/L Delta Troponin T (0-10) ABS# Total Protein 5.2 L (6.6-8.7) g/dL Albumin 3.6 (3.5-5.2) g/dL Globulin 1.6 (1.3-4.6) g/dL Lipase 26 (13-60) U/L Urine Color (Yellow) Urine Appearance (CLEAR) Urine pH (5-7) Ur Specific Gravit y (1.005-1.030) Urine Protein (Negative) Urine Glucose (UA) (Normal) Urine Ketones (Negative) Urine Blood (Negative) Urine Nitrate (Negative) Urine Bilirubin (Negative) Urine Urobilinogen (Negative) mg/dL Ur Leukocyte Patrizia ase (Negative) Urine RBC (0-2) /hpf Urine WBC (0-5) /hpf Ur Squamous Epith Cells (0-5) /hpf Amorphous Sediment Urine Bacteria (NONE) /hpf Blood Type Rho(D) Type Antibody Screen Crossmatch 03/24/21 03/24/21 03/24/21 Range/Units 15:56 18:00 18:00 WBC (4.0-10.0) 10^3/ uL RBC (4.1-5.3) 10^6/u L Hgb (11.7-16.6) g/dL Hct (42.0-52.0) % MCV (80-94) fL MCH (28.0-34.0) pg MCHC (30.0-36.0) g/dL RDW (12.1-15.1) % Plt Count (130-400) 10^3/c mm MPV (7.4-10.4) fL Lymph % (Auto) [place] % (Auto) Lymph # (Auto) [place] # (Auto) Total Counted 100 (0-100) Atypical Lymphs % 4.0 (0-5) % Segmented Neutroph ils 61 % Band Neutrophils 11.0 % Lymphocytes (Manua l) 15 % Monocytes (Manual) 2.0 % Eosinophils (Manua l) 2 % Basophils (Manual) 0.0 % Metamyelocytes 3.0 % Promyelocytes 2.0 % Platelet Estimate Normal (Normal) Dimorphic RBCs Poikilocytosis Microcytosis Macrocytosis Ovalocytes Schistocytes Sodium (136-145) mmol/L Potassium (3.5-5.1) mmol/L Chloride (98-107) mmol/L Carbon Dioxide (22-29) mmol/L Anion Gap (5-19) BUN (8-23) mg/dL Creatinine (0.7-1.2) mg/dL GFR Calculation Glucose (65-115) mg/dL Calculated Osmolal ity (285-295) mOsm/k g Calcium (8.5-10.5) mg/dL Total Bilirubin (0.15-1.2) mg/dL AST (0-40) U/L ALT (0-41) U/L Alkaline Phosphata se (40-130) IU/L Troponin T Baselin e (0-15) ng/L Troponin T 120 Min [place] 21.37 H (0-15) ng/L Delta Troponin T -2.63 L (0-10) ABS# Total Protein (6.6-8.7) g/dL Albumin (3.5-5.2) g/dL Globulin (1.3-4.6) g/dL Lipase (13-60) U/L Urine Color (Yellow) Urine Appearance (CLEAR) Urine pH (5-7) Ur Specific Gravit y (1.005-1.030) Urine Protein (Negative) Urine Glucose (UA) (Normal) Urine Ketones (Negative) Urine Blood (Negative) Urine Nitrate (Negative) Urine Bilirubin (Negative) Urine Urobilinogen (Negative) mg/dL Ur Leukocyte Patrizia ase (Negative) Urine RBC (0-2) /hpf Urine WBC (0-5) /hpf Ur Squamous Epith Cells (0-5) /hpf Amorphous Sediment Urine Bacteria (NONE) /hpf Blood Type A Negative Rho(D) Type Negative / 0 Antibody Screen Negative Crossmatch See Detail 06/16/21 Range/Units 18:01 WBC (4.0-10.0) 10^3/ uL RBC (4.1-5.3) 10^6/u L Hgb (11.7-16.6) g/dL Hct (42.0-52.0) % MCV (80-94) fL MCH (28.0-34.0) pg MCHC (30.0-36.0) g/dL RDW (12.1-15.1) % Plt Count (130-400) 10^3/c mm MPV (7.4-10.4) fL Lymph % (Auto) [place] % (Auto) Lymph # (Auto) [place] # (Auto) Total Counted (0-100) Atypical Lymphs % (0-5) % Segmented Neutroph ils % Band Neutrophils % Lymphocytes (Manua l) % Monocytes (Manual) % Eosinophils (Manua l) % Basophils (Manual) % Metamyelocytes % Promyelocytes % Platelet Estimate (Normal) Dimorphic RBCs Poikilocytosis Microcytosis Macrocytosis Ovalocytes Schistocytes Sodium (136-145) mmol/L Potassium (3.5-5.1) mmol/L Chloride (98-107) mmol/L Carbon Dioxide (22-29) mmol/L Anion Gap (5-19) BUN (8-23) mg/dL Creatinine (0.7-1.2) mg/dL GFR Calculation Glucose (65-115) mg/dL Calculated Osmolal ity (285-295) mOsm/k g Calcium (8.5-10.5) mg/dL Total Bilirubin (0.15-1.2) mg/dL AST (0-40) U/L ALT (0-41) U/L Alkaline Phosphata se (40-130) IU/L Troponin T Baselin e (0-15) ng/L Troponin T 120 Min [place] (0-15) ng/L Delta Troponin T (0-10) ABS# Total Protein (6.6-8.7) g/dL Albumin (3.5-5.2) g/dL Globulin (1.3-4.6) g/dL Lipase (13-60) U/L Urine Color Dark yellow (Yellow) Urine Appearance Hazy A (CLEAR) Urine pH 5 (5-7) Ur Specific Gravit y 1.010 (1.005-1.030) Urine Protein Trace (Negative) Urine Glucose (UA) Norm (Normal) Urine Ketones Negative (Negative) Urine Blood Neg (Negative) Urine Nitrate Negative (Negative) Urine Bilirubin Neg (Negative) Urine Urobilinogen Norm (Negative) mg/dL Ur Leukocyte Patrizia ase Negative (Negative) Urine RBC 0-4 H (0-2) /hpf Urine WBC 0-4 H (0-5) /hpf Ur Squamous Epith Cells 0-4 H (0-5) /hpf Amorphous Sediment Not Reportable Urine Bacteria Trace (NONE) /hpf Blood Type Rho(D) Type Antibody Screen Crossmatch Imaging Data^: CXR: Attestation: I personally reviewed and interpreted this imaging study as follows: Radiologist's impression: [employer] [address] XRay Report Signed Patient: Seth Cadet Jr Unit #: [id number] : 1945 Age/Sex: 75 / M ADM Date: 03/24/21 Loc: ER Room/Bed: Attending Dr: Ordering Provider/Ordering MD: Paulie Sharif Date of Service: 03/24/21 Procedure(s): XR chest 1V portable [id number] Accession Number(s): [id number] Report Number: [id number] WS: [id number] Exam: XR chest 1V portable [id number] Date/Time of Exam: 03/24/2021 3:52 PM Reason For Exam: cough with yellow sputum Comparison 01/20/2018. The lungs are fully expanded. Coarsening of interstitial markings probably representing chronic change. No consolidated infiltrates or pleural effusions. Normal cardiomediastinal structures. Regional bony elements are intact. XR/XR chest 1V portable [id number] IMPRESSION: 1. Coarsening of interstitial markings throughout both lungs probably chronic in nature. No consolidated infiltrates identified. Dictated By: Brooks Wolfe DO Signed By: Brooks Wolfe DO Signed Date/Time: 03/24/21 1603 DD/ 1600 EKG Data^: EKG 1: Attestation: I personally reviewed and interpreted this EKG as follows: EKG interpretation date: 03/24/21 Interpretation: Sinus rhythm, 81 bpm, no ST segment elevation or depression seen. Computer generated interpretation: Chest X-Ray 03/24/21 15:46 IMPRESSION: 1. Coarsening of interstitial markings throughout both lungs probably chronic in nature. No consolidated infiltrates identified. Abdomen/Pelvis CT 03/24/21 15:47 IMPRESSION: 1. Bilateral nephrolithiasis without obstructive uropathy. Urinary bladder calculi are also noted. 2. No acute abnormality demonstrated in the abdomen and pelvis. 3. There is no interval change from the prior examination. Radiation Dose CTDIVOL = (mGy): DLP = 1835.74 (mGy-cm) Discharge Plan Discharge Patient Disposition: Admitted As Inpatient Admit Provider: Srinivas Miranda Clinical Impression: Microcytic anemia, Weakness, Abdominal pain of unknown cause Condition: Fair Discharge Diet: Advance as tolerated Discharge Activity: Increase activity as tolerated Sign Out Sign Out Data: Patient Sign Out occurred on 03/24/21 at 17:13. Patient's care was discussed, and care was transferred from to MARCOS Stapleton. Coding Level of Care Code ED Vp Marketing for Chg Fwd Exam Comprehensive Documented by User: MARCOS Stapleton 03/24/21 21:54 HPI - General Adult General: Chief complaint: General Medical Stated complaint: ABD PAIN, N/V Time Seen by Provider: 03/24/21 15:36 PFSH ED PFSH: Medical History BPH loc w urin obs/LUTS Incomplete bladder emptying Non-Hodgkins lymphoma Renal calculi Right distal ureteral calculus Family History Father , at age 54 Diabetes Heart attack Mother Hypertension Social History Smoking and tobacco status: former smoker Alcohol intake: never Marital status: Current occupational status: employed History of recent travel: No Physical Exam Const: COMMON NORMALS: no acute distress, average body habitus, patient oriented x3, no limitations, alert and well nourished GENERAL APPEARANCE: cooperative ORIENTATION/CONSCIOUSNESS: Yes awake, Yes oriented to person, Yes oriented to place and Yes oriented to time Resp: COMMON NORMALS: normal respiratory effort and clear to auscultation bilaterally AUSCULTATION: clear to auscultation bilaterally Cardio: COMMON NORMALS: regular rate and regular rhythm RATE: regular rate RHYTHM: regular rhythm GI: COMMON NORMALS: Soft to palpation, No hepatosplenomegaly present, no masses and no bruits PALPATION: Yes Soft to palpation, Yes Tenderness to palpation present (GI) (diffusely) and Yes No hepatosplenomegaly present RECTAL EXAM: Yes heme negative stool (JOEY/hemoccult performed by SUN Wu) Neuro: COMMON NORMALS: patient oriented x3 SENSORIUM/ORIENTATION: Yes alert, Yes oriented to person, Yes oriented to place and Yes oriented to time Skin: NARRATIVE SKIN EXAM: appears pale Course Consultations: Consultation #1: Dr. Miranda-accepts admission Vital Signs: Vital signs: Vital Signs Temperature 97.9 F 03/25/21 16:23 Pulse Rate 75 03/25/21 19:57 Respiratory Rate 14 03/25/21 19:57 Blood Pressure 127/81 03/25/21 19:57 Pulse Oximetry 93 03/25/21 19:57 MDM - General Adult MDM Narrative: Medical decision making narrative: Patient is a 75-year-old male who presents to ED today along with his for evaluation of weakness and abdominal pain. Patient tells me approximately a week and a half ago he began developing a cough and mild URI symptoms. 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 He was diagnosed with bronchitis and prescribed azithromycin. Patient states he was tested for COVID which was negative. He states he is not improving on the azithromycin. He states he has had some abdominal pain on and off throughout this whole thing but states it is acutely worsened over the past 24 to 48 hours. He tells me he does have a known kidney stone causing some mild left flank pain however states the pain in his abdomen is not characteristic of his kidney stone pain. He has not had any vomiting. He has not noticed any changes in his bowel habits-no hematochezia or dark/tarry stool. Patient does have a history of lymphoma-last time he knew he was in remission however states he has not followed up with anybody in several years regarding this. Care was accepted from Paulie Sharif PA-C. Patient was noted to be anemic with an H&H of 7.8/25.8. Hemoccult was negative. CT scan is currently pending. CT scan showing bilateral nephrolithiasis as well as a few bladder stones. Patient is aware of these. UA without infection. Spoke with Dr. Briggs who agrees with admit-recommends holding off on transfusion until speak to hospitalist. Spoke to Dr. Miranda for admission. Lab Data: Labs: Lab Results 03/24/21 03/24/21 03/24/21 Range/Units 15:56 15:56 15:56 WBC 5.5 (4.0-10.0) 10^3/ uL RBC 3.56 L (4.1-5.3) 10^6/u L Hgb 7.8 L (11.7-16.6) g/dL Hct 25.8 L (42.0-52.0) % MCV 72.5 L (80-94) fL MCH 21.9 L (28.0-34.0) pg MCHC 30.2 (30.0-36.0) g/dL RDW 27.8 H (12.1-15.1) % Plt Count 180 (130-400) 10^3/c mm MPV 13.0 H (7.4-10.4) fL Lymph % (Auto) Not Reportable [place] % (Auto) Not Reportable Lymph # (Auto) Not Reportable [place] # (Auto) Not Reportable Total Counted (0-100) Atypical Lymphs % (0-5) % Segmented Neutroph ils % Band Neutrophils % Lymphocytes (Man[place] l) % Monocytes (Manual) % Eosinophils (Man[place] l) % Basophils (Manual) % Metamyelocytes % Promyelocytes % Platelet Estimate (Normal) Dimorphic RBCs 2+ H Poikilocytosis 3+ H Microcytosis Trace Macrocytosis Trace Ovalocytes 1+ H Schistocytes 1+ H Sodium 132 L (136-145) mmol/L Potassium 4.0 (3.5-5.1) mmol/L Chloride 95 L (98-107) mmol/L Carbon Dioxide 24 (22-29) mmol/L Anion Gap 17.0 (5-19) BUN 24 H (8-23) mg/dL Creatinine 1.3 H (0.7-1.2) mg/dL GFR Calculation Not Reportable Glucose 138 H (65-115) mg/dL Calculated Osmolal ity 280 L (285-295) mOsm/k g Calcium 8.3 L (8.5-10.5) mg/dL Total Bilirubin 0.7 (0.15-1.2) mg/dL AST 31 (0-40) U/L ALT 30 (0-41) U/L Alkaline Phosphata se 82 (40-130) IU/L Troponin T Baselin e 24 H (0-15) ng/L Troponin T 120 Min [place] (0-15) ng/L Delta Troponin T (0-10) ABS# Total Protein 5.2 L (6.6-8.7) g/dL Albumin 3.6 (3.5-5.2) g/dL Globulin 1.6 (1.3-4.6) g/dL Lipase 26 (13-60) U/L Urine Color (Yellow) Urine Appearance (CLEAR) Urine pH (5-7) Ur Specific Gravit y (1.005-1.030) Urine Protein (Negative) Urine Glucose (UA) (Normal) Urine Ketones (Negative) Urine Blood (Negative) Urine Nitrate (Negative) Urine Bilirubin (Negative) Urine Urobilinogen (Negative) mg/dL Ur Leukocyte Patrizia ase (Negative) Urine RBC (0-2) /hpf Urine WBC (0-5) /hpf Ur Squamous Epith Cells (0-5) /hpf Amorphous Sediment Urine Bacteria (NONE) /hpf Blood Type Rho(D) Type Antibody Screen Crossmatch 03/24/21 03/24/21 03/24/21 Range/Units 15:56 18:00 18:00 WBC (4.0-10.0) 10^3/ uL RBC (4.1-5.3) 10^6/u L Hgb (11.7-16.6) g/dL Hct (42.0-52.0) % MCV (80-94) fL MCH (28.0-34.0) pg MCHC (30.0-36.0) g/dL RDW (12.1-15.1) % Plt Count (130-400) 10^3/c mm MPV (7.4-10.4) fL Lymph % (Auto) [place] % (Auto) Lymph # (Auto) [place] # (Auto) Total Counted 100 (0-100) Atypical Lymphs % 4.0 (0-5) % Segmented Neutroph ils 61 % Band Neutrophils 11.0 % Lymphocytes (Manua l) 15 % Monocytes (Manual) 2.0 % Eosinophils (Manua l) 2 % Basophils (Manual) 0.0 % Metamyelocytes 3.0 % Promyelocytes 2.0 % Platelet Estimate Normal (Normal) Dimorphic RBCs Poikilocytosis Microcytosis Macrocytosis Ovalocytes Schistocytes Sodium (136-145) mmol/L Potassium (3.5-5.1) mmol/L Chloride (98-107) mmol/L Carbon Dioxide (22-29) mmol/L Anion Gap (5-19) BUN (8-23) mg/dL Creatinine (0.7-1.2) mg/dL GFR Calculation Glucose (65-115) mg/dL Calculated Osmolal ity (285-295) mOsm/k g Calcium (8.5-10.5) mg/dL Total Bilirubin (0.15-1.2) mg/dL AST (0-40) U/L ALT (0-41) U/L Alkaline Phosphata se (40-130) IU/L Troponin T Baselin e (0-15) ng/L Troponin T 120 Min [place] 21.37 H (0-15) ng/L Delta Troponin T -2.63 L (0-10) ABS# Total Protein (6.6-8.7) g/dL Albumin (3.5-5.2) g/dL Globulin (1.3-4.6) g/dL Lipase (13-60) U/L Urine Color (Yellow) Urine Appearance (CLEAR) Urine pH (5-7) Ur Specific Gravit y (1.005-1.030) Urine Protein (Negative) Urine Glucose (UA) (Normal) Urine Ketones (Negative) Urine Blood (Negative) Urine Nitrate (Negative) Urine Bilirubin (Negative) Urine Urobilinogen (Negative) mg/dL Ur Leukocyte Patrizia ase (Negative) Urine RBC (0-2) /hpf Urine WBC (0-5) /hpf Ur Squamous Epith Cells (0-5) /hpf Amorphous Sediment Urine Bacteria (NONE) /hpf Blood Type A Negative Rho(D) Type Negative / 0 Antibody Screen Negative Crossmatch See Detail 03/24/21 Range/Units 18:01 WBC (4.0-10.0) 10^3/ uL RBC (4.1-5.3) 10^6/u L Hgb (11.7-16.6) g/dL Hct (42.0-52.0) % MCV (80-94) fL MCH (28.0-34.0) pg MCHC (30.0-36.0) g/dL RDW (12.1-15.1) % Plt Count (130-400) 10^3/c mm MPV (7.4-10.4) fL Lymph % (Auto) [place] % (Auto) Lymph # (Auto) [place] # (Auto) Total Counted (0-100) Atypical Lymphs % (0-5) % Segmented Neutroph ils % Band Neutrophils % Lymphocytes (Man[place] l) % Monocytes (Manual) % Eosinophils (Man[place] l) % Basophils (Manual) % Metamyelocytes % Promyelocytes % Platelet Estimate (Normal) Dimorphic RBCs Poikilocytosis Microcytosis Macrocytosis Ovalocytes Schistocytes Sodium (136-145) mmol/L Potassium (3.5-5.1) mmol/L Chloride (98-107) mmol/L Carbon Dioxide (22-29) mmol/L Anion Gap (5-19) BUN (8-23) mg/dL Creatinine (0.7-1.2) mg/dL GFR Calculation Glucose (65-115) mg/dL Calculated Osmolal ity (285-295) mOsm/k g Calcium (8.5-10.5) mg/dL Total Bilirubin (0.15-1.2) mg/dL AST (0-40) U/L ALT (0-41) U/L Alkaline Phosphata se (40-130) IU/L Troponin T Baselin e (0-15) ng/L Troponin T 120 Min [place] (0-15) ng/L Delta Troponin T (0-10) ABS# Total Protein (6.6-8.7) g/dL Albumin (3.5-5.2) g/dL Globulin (1.3-4.6) g/dL Lipase (13-60) U/L Urine Color Dark yellow (Yellow) Urine Appearance Hazy A (CLEAR) Urine pH 5 (5-7) Ur Specific Gravit y 1.010 (1.005-1.030) Urine Protein Trace (Negative) Urine Glucose (UA) Norm (Normal) Urine Ketones Negative (Negative) Urine Blood Neg (Negative) Urine Nitrate Negative (Negative) Urine Bilirubin Neg (Negative) Urine Urobilinogen Norm (Negative) mg/dL Ur Leukocyte Patrizia ase Negative (Negative) Urine RBC 0-4 H (0-2) /hpf Urine WBC 0-4 H (0-5) /hpf Ur Squamous Epith Cells 0-4 H (0-5) /hpf Amorphous Sediment Not Reportable Urine Bacteria Trace (NONE) /hpf Blood Type Rho(D) Type Antibody Screen Crossmatch Imaging Data^: CT Abd/Pel: Radiologist's impression: [employer] [address] [address] Scan Report Signed Patient: Seth Cadet Jr Unit #: [id number] : 1945 Age/Sex: 75 / M ADM Date: 03/24/21 Loc: ER Room/Bed: Attending Dr: Ordering Provider/Ordering MD: Paulie Sharif Date of Service: 03/24/21 Procedure(s): CT abdomen pelvis w con* [id number] Accession Number(s): [id number] Report Number: [id number] PROCEDURE INFORMATION: Exam: CT Abdomen And Pelvis With Contrast Exam date and time: 03/24/2021 3:47 PM Age: 75 years old Clinical indication: Abdominal pain; Additional info: Lower abdominal pain x 7 days. PT states he has a kidney stone that has been there a long time TECHNIQUE: Imaging protocol: Computed tomography of the abdomen and pelvis with contrast. Radiation optimization: All CT scans at this facility use at least one of these dose optimization techniques: automated exposure control; mA and/or kV adjustment per patient size (includes targeted exams where dose is matched to clinical indication); or iterative reconstruction. Contrast material: VISI 320; Contrast volume: 95 ml; Contrast route: INTRAVENOUS (IV); COMPARISON: CT abdomen pelvis w con* [id number] 12/20/2020 1:11 PM RADIATION DOSE METRICS: Total DLP (mGy-cm): 1835.74 FINDINGS: Lungs: Mild atelectasis versus fibrosis noted at the lung bases. Liver: Simple appearing hepatic cysts, measuring up to 15 mm. No acute hepatic abnormality. Gallbladder and bile ducts: The gallbladder is unremarkable. No gallstones or sludge demonstrated. No gallbladder wall thickening. No pericholecystic fluid. Pancreas: The pancreas is normal in appearance. No pancreatic duct dilatation. Spleen: The spleen is normal in size and appearance. Adrenal glands: The adrenal glands appear within normal limits. Kidneys and ureters: Bilateral nephrolithiasis. Renal calculi up to 11 mm in diameter noted. No hydronephrosis. No renal cyst or mass. Ureters are unremarkable. Stomach and bowel: No acute gastric abnormality demonstrated. The small bowel is unremarkable as demonstrated. No acute abnormality/inflammatory change of the colon. Appendix: No evidence of appendicitis. Intraperitoneal space: No pneumoperitoneum. No significant fluid collection. Vasculature: The aorta is atherosclerotic. No aortic aneurysm. Lymph nodes: No pathologically enlarged lymph nodes are demonstrated. Urinary bladder: Urinary bladder is distended and contains 3 calculi, measuring up to 12 mm in diameter. Reproductive: Unremarkable as visualized. Bones/joints: Degenerative spine changes. No acute osseous abnormality. Soft tissues: The soft tissues appear unremarkable. CT/CT abdomen pelvis w con* [id number] IMPRESSION: 1. Bilateral nephrolithiasis without obstructive uropathy. Urinary bladder calculi are also noted. 2. No acute abnormality demonstrated in the abdomen and pelvis. 3. There is no interval change from the prior examination. Radiation Dose CTDIVOL = (mGy): DLP = 1835.74 (mGy-cm) Dictated By: Francisco Grimm MD Signed By: Francisco Grimm MD Signed Date/Time: 03/24/211756 DD/ 55 EKG Data^: EKG 1: Computer generated interpretation: Chest X-Ray 03/24/21 15:46 IMPRESSION: 1. Coarsening of interstitial markings throughout both lungs probably chronic in nature. No consolidated infiltrates identified. Abdomen/Pelvis CT 03/24/21 15:47
[2021-03-24 16:04] LABS: Hematocrit 25.8 % (42.0-52.0); Hemoglobin 7.8 g/dL (11.7-16.6); Mean Corpuscular HGB Conc 30.2 g/dL (30.0-36.0); Mean Corpuscular Hemoglobin 21.9 pg (28.0-34.0); Mean Corpuscular Volume 72.5 fL (80-94); Platelet Count 180 10^3/cmm (130-400); Red Blood Count 3.56 10^6/uL (4.1-5.3); Red Cell Distribution Width 27.8 % (12.1-15.1); White Blood Count 5.5 10^3/uL (4.0-10.0)
[2021-03-24] MEDS: morphine 4 mg/mL SDV 1 mL IVP ×2 (16:15→18:26)
[2021-03-24] MEDS: sodium chloride 0.9% 1,000 ML 999 ML IV (16:15)
[2021-03-24 16:29] LABS: Slide Review Slide Review Perform
[2021-03-24 16:30] LABS: Troponin(5th) Baseline 24 ng/L (0-15)
[2021-03-24 16:31] LABS: Alanine Aminotransferase 30 U/L (0-41); Albumin Level 3.6 g/dL (3.5-5.2); Alkaline Phosphatase 82 IU/L (40-130); Aspartate Amino Transferase 31 U/L (0-40); Blood Urea Nitrogen 24 mg/dL (8-23); Calcium 8.3 mg/dL (8.5-10.5); Carbon Dioxide 24 mmol/L (22-29); Chloride 95 mmol/L (98-107); Globulin 1.6 g/dL (1.3-4.6); Glucose 138 mg/dL (65-115); Lipase 26 U/L (13-60); Osmolality Calculated 280 mOsm/kg (285-295); Sodium 132 mmol/L (136-145); Total Bilirubin 0.7 mg/dL (0.15-1.2); Total Protein 5.2 g/dL (6.6-8.7)
[2021-03-24 16:32] LABS: Add RBC Morph Yes
[2021-03-24 16:35] LABS: RBC Morph Comp No
[2021-03-24 16:36] LABS: Dimorphic RBC 2+; Poikilocytosis 3+
[2021-03-24 16:37] LABS: Ovalocytes 1+
[2021-03-24 16:38] LABS: Schistocytes 1+
[2021-03-24 16:47] LABS: Eosinophils 2 %; Lymphocytes 15 %; Macrocytosis Trace; Microcytosis Trace; Segmented Neutrophils 61 %; Total Cells Counted 100 (0-100)
[2021-03-24 16:49] LABS: Platelet Estimate Normal (Normal)
[2021-03-24] MEDS: iodixanol 320 mg/mL 100mL Btl IV (17:24)
--- NOTE | 2021-03-24 17:46 | ECG_ITS ---
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 Measurements Intervals [place] Rate: 84 P: 13 IA: 147 QRS: -36 QRSD: 137 T: 12 QT: 404 QTc: 478 Interpretive Statements SINUS RHYTHM WITH OCCASIONAL VENTRICULAR PREMATURE COMPLEXES MARKED LEFT AXIS DEVIATION [QRS AXIS < -30] RIGHT BUNDLE BRANCH BLOCK [120+ ms QRS DURATION, UPRIGHT V1, 40+ ms S IN I/aVL/V4/V5/V6] MINIMAL VOLTAGE CRITERIA FOR LVH, CONSIDER NORMAL VARIANT [MEETS CRITERIA IN ONE OF: R(aVL), S(V1), R(V5), R(V5/V6)+S(V1)] No previous ECG available for comparison Electronically Signed On 03-24-2021 17:51:47 CDT by Rigo Guy M.D. [id number]
[2021-03-24 18:10] LABS: Urine Color Dark Yellow (Yellow)
[2021-03-24 18:11] LABS: Add Urine Microscopic? YES; Bilirubin Urine Neg (Negative); Blood Urine Neg (Negative); Glucose Urine UA Norm (Normal); Ketones Urine Negative (Negative); Leukocyte Esterase Urine Negative (Negative); Nitrate Urine Negative (Negative); Protein Urine Trace (Negative); Urine Appearance Hazy (CLEAR); Urobilinogen Urine Norm (Negative); pH Urine 5 (5-7)
[2021-03-24 18:17] LABS: Bacteria Urine TRACE /hpf; RBC Urine 0-4 /hpf (0-2); Squamous Epithelial Cell Urine 0-4 /hpf (0-5); WBC Urine 0-4 /hpf (0-5)
[2021-03-24 18:18] LABS: Add Urine Culture? No
[2021-03-24] MEDS: ondansetron 2 mg/ML SDV 2 mL 4 MG IVP (18:26)
[2021-03-24 18:54] LABS: Troponin 5 2HR 21.37 ng/L (0-15)
[2021-03-24 19:03] LABS: Troponin 5 2HR Delta -2.63 ABS# (0-10)
--- NOTE | 2021-03-24 19:17 | PC.NURSE ---
Report from OMERO Rodgers
--- NOTE | 2021-03-24 21:46 | ECG_ITS ---
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 Measurements Intervals [place] Rate: 79 P: 18 NH: 156 QRS: -38 QRSD: 132 T: 10 QT: 404 QTc: 464 Interpretive Statements SINUS RHYTHM WITH FREQUENT VENTRICULAR PREMATURE COMPLEXES MARKED LEFT AXIS DEVIATION [QRS AXIS < -30] RIGHT BUNDLE BRANCH BLOCK [120+ ms QRS DURATION, UPRIGHT V1, 40+ ms S IN I/aVL/V4/V5/V6] Compared to ECG 03/24/2021 16:13:45 No significant changes Electronically Signed On 03-24-2021 17:52:40 CDT by Rigo Guy M.D. [id number]
[2021-03-24 22:52] LABS: Troponin 5 6HR 26.93 ng/L (0-15); Troponin 5 6HR Delta 2.93 ng/L (0-12)
[2021-03-25] VITALS (13 sets, daily range): BP systolic 110–127; BP diastolic 61–81; PULSE 69–81; RESP 14–18; TEMP 36.4–36.8; O2SAT 93–97
--- NOTE | 2021-03-25 00:51 | P.HP_ITS ---
Providers/Chief Complaint Admitting Physician: Srinivas Miranda Primary Care Provider: Augusto Gu DO Chief Complaint: ABD PAIN, N/V History of Present Illness 75-year-old male with past medical history significant for non-Hodgkins lymphoma, nephrolithiasis, BPH, gastroesophageal reflux disease, hypertension,Presented to the hospital for evaluation of nausea, vomiting.This was associated with generalized weakness. Patient was recently treated with antibiotics for bronchitis. He was noted to have a persistent cough. Patient did have posttussive emesis. Denies any episodes of bleeding. No reported dark stools. Noted some chest discomfort but particularly during coughing episodes. Also noted mild respiratory distress. Laboratory workup upon arrival showed a WBC of 5.5, hemoglobin 7.8, hematocrit of 25.8 and platelet count of 180. Sodium 132, potassium 4.0, chloride 95, bicarb 24, BUN 24 and creatinine of 1.3. Troponin T delta was -2.63 urinalysis was normal. Imaging studies included a chest x-ray which showed coarsening of interstitial markings throughout both lungs probably chronic in nature without any evidence of consolidative infiltrates.CT abdomen pelvis with contrast showed bilateral nephrolithiasis without obstructive uropathy. No acute abnormality was seen. Review of Systems General: Reports: 10 or more systems reviewed and unremarkable except in HPI and below Medications/Allergies Home Medications Medication Instructions Recorded Confirmed Last Taken Type Probiotic 1 cap PO DAILY #0 03/04/20 03/24/21 03/23/21 History acetaminophen [Tylenol Extra 1,000 mg PO Q8H PRN 03/04/20 03/24/21 03/15/20 History Strength] cetirizine 10 mg PO DAILY 03/04/20 03/24/21 03/23/21 History cholecalciferol (vitamin D3) 1 cap PO DAILY #0 03/04/20 03/24/21 03/23/21 History [Vitamin D3] multivitamin [Multiple Vitamins] 1 tab PO DAILY 03/04/20 03/24/21 03/23/21 His tory omeprazole 20 mg PO DAILY PRN 03/04/20 03/24/21 03/15/20 History potassium gluconate 595 mg PO DAILY 03/04/20 03/24/21 03/23/21 History tamsulosin 0.8 mg PO BEDTIME 03/04/20 03/24/21 03/23/21 History bee pollen 550 mg capsule 550 mg PO DAILY cap 03/05/20 03/24/21 03/23/21 History finasteride 5 mg tablet 5 mg PO DAILY #90 tab 06/03/20 03/24/21 03/23/21 Rx fluticasone propionate 2 spray INTRANASAL DAILY 03/24/21 03/24/21 03/23/21 History lisinopril 5 mg PO DAILY 03/24/21 03/24/21 03/23/21 History Allergies Allergy/AdvReac Type Severity Reaction Status Date / Time aspirin Allergy Unknown Verified 11/09/20 12:41 hydromorphone [From Dilaudid] Allergy ADR-Dizzine Verified 11/09/20 12:41 ss Penicillins Allergy ADR-Dizzine Verified 11/09/20 12:41 ss nausea medicine Allergy ADR-Dizzine Uncoded 11/09/20 12:41 ss PFSH Acute PFSH: Medical History (Updated 03/25/21 @ 05:53 by Srinivas Miranda MD) BPH loc w urin obs/LUTS Incomplete bladder emptying Non-Hodgkins lymphoma Renal calculi Right distal ureteral calculus Family History Father , at age 54 Diabetes Heart attack Mother Hypertension Social History Smoking and tobacco status: former smoker Alcohol intake: never Marital status: Current occupational status: employed History of recent travel: No Vitals/I&O/Wt Last Vital Signs Temp 98.2 F 03/25/21 04:00 Pulse 80 03/25/21 04:00 Resp 18 03/25/21 04:00 BP 114/61 03/25/21 04:00 Pulse Ox 94 03/25/21 04:00 03/24/21 03/24/21 03/25/21 14:59 22:59 06:59 Intake Total 340 / 340 Balance 340 / 340 Weight last 48 hrs Weight 90.718 kg Physical Exam Narrative: EXAM NARRATIVE: General-Alert, awake however persistent cough HEENT-grossly unremarkable CVS- regular rate rhythm obvious murmurs Chest -course breath sound bilaterally Abdomen -soft nontender nondistended Extremities- No edema, FROM x 4 Data : 03/24/21 15:56 03/24/21 15:56 A&P Assessment and plan (1) Abdominal pain of unknown cause: Status: Acute (2) Microcytic anemia: Status: Acute (3) Bronchitis: Status: Acute Acute on chronic bronchitis Likely viral Recently tx with abx Will start short course of abx Levaquin 750 mg IV daily Duoneb q6hr Solu-medrol 40 mg IV q12 Robitussin PRN Supplemental 02 as needed Post-tussive emesis Robitussin PRN Zofran PRN PPI Anemia Hgb 7.8 Iron studies in am Stool guiac Type and screen Transfuse if hgb< 7.0 Additional Medical Problems Non-hodgkin lymphoma Hypertension Nephrolihiasis GERD DVT ppx - SCDS only due to anemia Attestations Medical Necessity Statement*: Anticipate less than 2 midnight stay in hospital for eval and treat Time Spent in Patient Care: Greater than 35 minutes (>than 50% of time spent in counselling and/or direct pt care on unit) . Coding Level of Care Code Acute Pediatric Sports Medicine Specialist for Wes Sheikh Diagnoses Abdominal pain of unknown cause R10.9 Microcytic anemia D50.9 Bronchitis J40
[2021-03-25] MEDS: acetaminophen 325 mg Tablet 650 MG PO ×3 (03:28→19:22)
[2021-03-25] MEDS: guaiFENesin-dextromethorphan UDC 10 mL PO ×2 (03:28→16:55)
[2021-03-25] MEDS: levofloxacin-dextrose 5 % 750 MG/150 ML PREMIX 100 MG IV (06:49)
[2021-03-25 06:50] LABS: Basophils % 0.8 %; Eosinophils # 0.1 10^3/uL (0.0-0.8); Eosinophils % 2.7 %; Hematocrit 24.2 % (42.0-52.0); Hemoglobin 7.3 g/dL (11.7-16.6); Lymphocytes # 0.6 10^3/uL (0.8-4.8); Lymphocytes % 13.1 %; Mean Corpuscular HGB Conc 30.2 g/dL (30.0-36.0); Mean Corpuscular Hemoglobin 22.3 pg (28.0-34.0); Monocytes # 0.3 10^3/uL (0.2-0.9); Monocytes % 5.7 %; Neutrophils # 2.78 10^3/uL (1.8-7.7); Neutrophils % 58.9 %; Nucleated Red Blood Cells % 0 %; Platelet Count 136 10^3/cmm (130-400); Red Blood Count 3.27 10^6/uL (4.1-5.3); Red Cell Distribution Width 28.1 % (12.1-15.1); White Blood Count 4.7 10^3/uL (4.0-10.0)
[2021-03-25 06:59] LABS: Iron 16 ug/dL (59-158); Total Iron Binding Capacity 133 mcg/dl; Unsaturated Iron Binding 117 ug/dL (112-347)
[2021-03-25 07:07] LABS: Procalcitonin 0.61 ng/mL (0-0.5)
[2021-03-25 07:11] LABS: Ferritin 3037 ng/mL (30-400)
[2021-03-25 07:27] LABS: Slide Review Slide Review Perform
[2021-03-25] MEDS: ipratropium-albuterol 3 mL Neb INHALATION ×2 (08:41→14:12)
[2021-03-25] MEDS: pantoprazole DR 40 mg Tablet PO (10:20)
--- NOTE | 2021-03-25 10:55 | PC.CHAP ---
Pastoral Care Encounter/Spiritual Assessment Type of Contact [] Declined programming internship visit [] Patient/Family/Request visit [] Outpatient visit [] Follow-up visit [] Physician referral [] Code/Alert [x] Routine visit [] Staff referral [] Actively dying [] Patient sleeping [] Family support [] [] Out of room [] Palliative care [] [x] Receiving care in room [] Pre-surgical visit [] Trauma [x] Long length of stay [] ICU visit [] Other: Relational/Emotional Strength [x] Patient feels connected with others/family/visitors/staff [] Distress [] Loneliness/isolation [] Abandonment Spirituality of Patient [x] Person of Sarah [] Attends Cheondoism of their Sarah [x] Believes in Prayer [x] Reads Bible or Sabianism materials [] There are Spiritual issues to be addressed 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 Interventions [x] Prayer [x] Active listening [x] Non-anxious presence [x] Spiritual/emotional support [] Crisis/trauma care [x] Spiritual counseling [] Bereavement support [] Provided bereavement packet [] Provided Bible/devotional materials [] Provided toy/stuffed animal, coloring book to patient or family member [] Provided Communion [] Anointing/[place] [] Salvation [x] Completed spiritual assessment [] Other: Impact on Illness or Injury [] Angry [] Fearful [] Anxious [] Often cries [] Exhaustion [] Unable to work [] Unable to attend islam [] Unable to walk/stand [] Unable to read [] Unable to drive [] Unable to eat/drink [] Unable to sleep [] Unable to be with family [] Patient intubated [] Other: Summary has had cancer no cance now low blood demond main on docotors report, has a good attitude wants to go home feels good +1 daughter Time spent with patient 10 mins
--- NOTE | 2021-03-25 13:47 | PC.NUTR ---
Nutrition assessment completed d/t MST score of 2 for decreased appetite and weight loss. Pt and visitor reported to this RD that pt had not received breakfast or lunch trays. Notified pt's nurse who stated she was aware. Dietary staff report that pt name did not appear on diet list, and that they were not contacted about this. Have confirmed that pt name is now on list. This RD obtained tray and delivered personally to pt room and apologized multiple times to pt and visitor. Provided RD contact information for further concerns. See RD assessment for further details.
[2021-03-25 15:42] LABS: Lactate Dehydrogenase 107 U/L (135-225)
--- NOTE | 2021-03-25 15:46 | P.DS_ITS ---
Discharge Providers Date of Admission: 03/24/21 21:14 Date of Discharge: March 25, 2021 Attending Provider at Admission: Srinivas Miranda Attending Provider at Discharge: James Velasco DO Primary Care Provider: Augusto Gu DO Diagnoses at Discharge Discharge Diagnosis (1) Abdominal pain of unknown cause: Status: Acute (2) Microcytic anemia: Status: Acute (3) Bronchitis: Status: Acute Reason for Visit Reason for Visit: ABD PAIN, N/V Hospital Course Hospital Course Patient reports to me that he came in for overall weakness. 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 He started complaining of severe cough and weakness. He was seen in [place] diagnosed with bronchitis but no blood work was done. Patient had an extremely hard time getting back to [place]. He was very weak unable to drive- going 40 mph. Upon arrival back home his family brought him to the emergency room. CT of the abdomen was negative as the patient was complaining of some abdominal pain. However, patient did have microcytic hypochromic anemia. He was brought into the hospital overnight for evaluation. Iron studies are consistent with iron deficiency anemia. However his ferritin level was quite high. Given the patient is having night sweats and such fatigue there is a concern of return of lymphoma. I called Dr. Fallon to update him on his patient. He recommended outpatient work-up. And that he would see him in the office the next day. I ordered LDH and ESR as requested by Dr. Fallon It was decided to give the patient a transfusion due to his severe weakness and confusion. We are hopeful that 1 unit transfusion would help these conditions. Leave tonight after the transfusion. Physical Exam Narrative: EXAM NARRATIVE: In general: Patient appears his stated age of 65. Skin: patient's backside against the bed is very sweaty. Heart regular rate and rhythm. Soft ejection murmur heard. Lungs are clear to auscultation even when coughing. Extremities no clubbing cyanosis or edema Neuro patient was hard of hearing alert oriented to time place person and situation. On returning to the room to discuss discharge plans was present they were both asleep and upon waking he was confused. Discharge Data Data Completed and Pending: Completed Studies During Hospitalization Category Date Time Status CT abdomen pelvis w con* [id number] Urge nt Cat Scan 03/24/21 15:47 Completed XR chest 1V gayle ble [id number] Stat Exams 03/24/21 15:46 Completed Pending at discharge Category Date Time Status Basic Metabolic P giancarlo AM LABS Lab 03/26/21 04:00 Ordered Complete Blood Co unt w/Auto AM LABS Lab 03/26/21 04:00 Ordered Immunochemical Fe wilma OCB Routine Lab 03/25/21 05:41 Uncollected Immunochemical Fe wilma OCB Routine Lab 03/25/21 12:26 Uncollected Leukocyte Reduced RBC Routine Lab 03/24/21 18:00 Results Type and Screen R outine Lab 03/24/21 18:00 Results Labs from last 24 hours 03/25/21 03/25/21 03/25/21 06:30 06:30 06:30 WBC 4.7 RBC 3.27 L Hgb 7.3 L Hct 24.2 L MCV 74.0 L MCH 22.3 L MCHC 30.2 RDW 28.1 H Plt Count 136 MPV Not Reportable Neut % (Auto) 58.9 Lymph % (Auto) 13.1 [place] % (Auto) 5.7 Eos % (Auto) 2.7 Baso % (Auto) 0.8 Neut # (Auto) 2.78 Lymph # (Auto) 0.6 L [place] # (Auto) 0.3 Eos # (Auto) 0.1 Baso # (Auto) 0.0 Nucleated RBC % (a uto) 0 Total Counted Atypical Lymphs % Segmented Neutroph ils Band Neutrophils Lymphocytes (Manua l) Monocytes (Manual) Eosinophils (Manua l) Basophils (Manual) Metamyelocytes Promyelocytes Nucleated RBCs # 0.0 Platelet Estimate Dimorphic RBCs Poikilocytosis Microcytosis Macrocytosis Ovalocytes Schistocytes Sodium Potassium Chloride Carbon Dioxide Anion Gap BUN Creatinine GFR Calculation Glucose Calculated Osmolal ity Calcium Iron 16 L TIBC 133 % Saturation 12.0 L Unsat Iron Binding 117 Ferritin 3037 H Total Bilirubin AST ALT Alkaline Phosphata se Lactate Dehydrogen ase 107 L Troponin T Baselin e Troponin T 120 Min [place] Delta Troponin T Troponin T Hi Sens 6Hr Troponin T Hi Sens 6Hr Delta Total Protein Albumin Globulin Lipase Procalcitonin 0.61 H Urine Color Urine Appearance Urine pH Ur Specific Gravit y Urine Protein Urine Glucose (UA) Urine Ketones Urine Blood Urine Nitrate Urine Bilirubin Urine Urobilinogen Ur Leukocyte Patrizia ase Urine RBC Urine WBC Ur Squamous Epith Cells Amorphous Sediment Urine Bacteria Blood Type Rho(D) Type Antibody Screen Crossmatch 03/24/21 03/24/21 03/24/21 22:06 18:01 18:00 WBC RBC Hgb Hct MCV MCH MCHC RDW Plt Count MPV Neut % (Auto) Lymph % (Auto) [place] % (Auto) Eos % (Auto) Baso % (Auto) Neut # (Auto) Lymph # (Auto) [place] # (Auto) Eos # (Auto) Baso # (Auto) Nucleated RBC % (a uto) Total Counted Atypical Lymphs % Segmented Neutroph ils Band Neutrophils Lymphocytes (Manua l) Monocytes (Manual) Eosinophils (Manua l) Basophils (Manual) Metamyelocytes Promyelocytes Nucleated RBCs # Platelet Estimate Dimorphic RBCs Poikilocytosis Microcytosis Macrocytosis Ovalocytes Schistocytes Sodium Potassium Chloride Carbon Dioxide Anion Gap BUN Creatinine GFR Calculation Glucose Calculated Osmolal ity Calcium Iron TIBC % Saturation Unsat Iron Binding Ferritin Total Bilirubin AST ALT Alkaline Phosphata se Lactate Dehydrogen ase Troponin T Baselin e Troponin T 120 Min [place] Troponin T Troponin T Hi Sens 6Hr 26.93 H Troponin T Hi Sens 6Hr Delta 2.93 Total Protein Albumin Globulin Lipase Procalcitonin Urine Color Dark yellow Urine Appearance Hazy A Urine pH 5 Ur Specific Gravit y 1.010 Urine Protein Trace Urine Glucose (UA) Norm Urine Ketones Negative Urine Blood Neg Urine Nitrate Negative Urine Bilirubin Neg Urine Urobilinogen Norm Ur Leukocyte Patrizia ase Negative Urine RBC 0-4 H Urine WBC 0-4 H Ur Squamous Epith Cells 0-4 H Amorphous Sediment Not Reportable Urine Bacteria Trace Blood Type A Negative Rho(D) Type Negative / 0 Antibody Screen Negative Crossmatch See Detail 03/24/21 03/24/21 03/24/21 18:00 15:56 15:56 WBC RBC Hgb Hct MCV MCH MCHC RDW Plt Count MPV Neut % (Auto) Lymph % (Auto) [place] % (Auto) Eos % (Auto) Baso % (Auto) Neut # (Auto) Lymph # (Auto) [place] # (Auto) Eos # (Auto) Baso # (Auto) Nucleated RBC % (a uto) Total Counted 100 Atypical Lymphs % 4.0 Segmented Neutroph ils 61 Band Neutrophils 11.0 Lymphocytes (Manua l) 15 Monocytes (Manual) 2.0 Eosinophils (Manua l) 2 Basophils (Manual) 0.0 Metamyelocytes 3.0 Promyelocytes 2.0 Nucleated RBCs # Platelet Estimate Normal Dimorphic RBCs Poikilocytosis Microcytosis Macrocytosis Ovalocytes Schistocytes Sodium Potassium Chloride Carbon Dioxide Anion Gap BUN Creatinine GFR Calculation Glucose Calculated Osmolal ity Calcium Iron TIBC % Saturation Unsat Iron Binding Ferritin Total Bilirubin AST ALT Alkaline Phosphata se Lactate Dehydrogen ase Troponin T Baselin e 24 H Troponin T 120 Min [place] 21.37 H Delta Troponin T -2.63 L Troponin T Hi Sens 6Hr Troponin T Hi Sens 6Hr Delta Total Protein Albumin Globulin Lipase Procalcitonin Urine Color Urine Appearance Urine pH Ur Specific Gravit y Urine Protein Urine Glucose (UA) Urine Ketones Urine Blood Urine Nitrate Urine Bilirubin Urine Urobilinogen Ur Leukocyte Patrizia ase Urine RBC Urine WBC Ur Squamous Epith Cells Amorphous Sediment Urine Bacteria Blood Type Rho(D) Type Antibody Screen Crossmatch 03/24/21 03/24/21 15:56 15:56 WBC 5.5 RBC 3.56 L Hgb 7.8 L Hct 25.8 L MCV 72.5 L MCH 21.9 L MCHC 30.2 RDW 27.8 H Plt Count 180 MPV 13.0 H Neut % (Auto) Lymph % (Auto) Not Reportable [place] % (Auto) Not Reportable Eos % (Auto) Baso % (Auto) Neut # (Auto) Lymph # (Auto) Not Reportable [place] # (Auto) Not Reportable Eos # (Auto) Baso # (Auto) Nucleated RBC % (a uto) Total Counted Atypical Lymphs % Segmented Neutroph ils Band Neutrophils Lymphocytes (Manua l) Monocytes (Manual) Eosinophils (Manua l) Basophils (Manual) Metamyelocytes Promyelocytes Nucleated RBCs # Platelet Estimate Dimorphic RBCs 2+ H Poikilocytosis 3+ H Microcytosis Trace Macrocytosis Trace Ovalocytes 1+ H Schistocytes 1+ H Sodium 132 L Potassium 4.0 Chloride 95 L Carbon Dioxide 24 Anion Gap 17.0 BUN 24 H Creatinine 1.3 H GFR Calculation Not Reportable Glucose 138 H Calculated Osmolal ity 280 L Calcium 8.3 L Iron TIBC % Saturation Unsat Iron Binding Ferritin Total Bilirubin 0.7 AST 31 ALT 30 Alkaline Phosphata se 82 Lactate Dehydrogen ase Troponin T Baselin e Troponin T 120 Min [place] Troponin T Troponin T Hi Sens 6Hr Troponin T Hi Sens 6Hr [place] Total Protein 5.2 L Albumin 3.6 Globulin 1.6 Lipase 26 Procalcitonin Urine Color Urine Appearance Urine pH Ur Specific Gravit y Urine Protein Urine Glucose (UA) Urine Ketones Urine Blood Urine Nitrate Urine Bilirubin Urine Urobilinogen Ur Leukocyte Patrizia ase Urine RBC Urine WBC Ur Squamous Epith Cells Amorphous Sediment Urine Bacteria Blood Type Rho(D) Type Antibody Screen Crossmatch Vitals: Last Vital Signs Temp 97.8 F 03/25/21 15:29 Pulse 81 03/25/21 15:29 Resp 14 03/25/21 15:29 BP 127/68 03/25/21 15:29 Pulse Ox 93 03/25/21 15:29 Discharge Plan Discharge Patient Disposition: Home Condition: Fair Prescriptions: Continued bee pollen 550 mg capsule 550 mg PO DAILY RF: 0 finasteride 5 mg tablet 5 mg PO DAILY Qty: 90 RF: 3 fluticasone propionate 50 mcg/actuation [place],Suspension 2 spray INTRANASAL DAILY RF: 0 multivitamin [Multiple Vitamins] Tablet 1 tab PO DAILY RF: 0 cetirizine 10 mg tablet 10 mg PO DAILY RF: 0 acetaminophen [Tylenol Extra Strength] 500 mg Tablet 1,000 mg PO Q8H PRN (Reason: Pain) RF: 0 tamsulosin 0.4 mg capsule 0.8 mg PO BEDTIME RF: 0 omeprazole 20 mg capsule,delayed release(DR/EC) 20 mg PO DAILY PRN (Reason: Acid Reflux) RF: 0 cholecalciferol (vitamin D3) [Vitamin D3] 10 mcg (400 unit) Capsule 1 cap PO DAILY Qty: 0 RF: 0 potassium gluconate 595 mg (99 mg) Tablet 595 mg PO DAILY RF: 0 Probiotic 3 billion cell Capsule 1 cap PO DAILY Qty: 0 RF: 0 Held lisinopril 10 mg Tablet 5 mg PO DAILY RF: 0 Hold Instructions: Resume on 03/31/21. check BP at home and record. Review with your PCP. Discharge Orders: Discharge Order (Routine); Ordered 03/25/21 Ordered By: James Velasco Referrals: Augusto Gu DO [Primary Care Provider] - 04/01/21 8:30 am Erik Fallon MD [Hospitalist] - 03/26/21 8:30 am Discharge Diet: Advance as tolerated Discharge Activity: Increase activity as tolerated Patient Instructions: Anemia, Bronchitis (Acute) - Adult, Iron Deficiency Anemia (GEN) Activity Restrictions/Additional Instructions: Dr. Fallon aware of your condition. He was going to arrange appointment for tomorrow. If time not given to you, call office in am. Discharge Attestations Time Spent in Discharge Care*: greater than 30 min Specific Discharge Activities: educating patient, educating and/or supporting family/caregiver, discussing with pcp/other providers, documenting/other paperwork and evaluating patient/reviewing data Quality Metrics Clinical Quality Measures During this hospital stay, did patient experience: None Coding Level of Care Code Acute Chg [facility] note Diagnoses Abdominal pain of unknown cause R10.9 Microcytic anemia D50.9 Bronchitis J40
[2021-03-25] MEDS: sodium chloride 0.9% (100 ml) 100 ML 50 ML (15:58)
== END 2021-03-25 19:58 | disposition home or self-care (01) ==
LOC: ER 20:46 → MEDSURG 22:31
PROVIDERS: Physician Assistant; Admitting Provider Hospitalist; Emergency Provider Physician Assistant; PCP Emergency Medicine Emergency Medical Services; Visit Provider Internal Medicine
DX: R10.30 Lower abdominal pain, unspecified (principal); D50.9 Iron deficiency anemia, unspecified; J40 Bronchitis, not specified as acute or chronic; C85.90 Non-Hodgkin lymphoma, unspecified, unspecified site; K21.9 Gastro-esophageal reflux disease without esophagitis; I10 Essential (primary) hypertension; N40.1 Benign prostatic hyperplasia with lower urinary tract symptoms; N13.8 Other obstructive and reflux uropathy; Z87.891 Personal history of nicotine dependence
CPT/HCPCS: 36415; 36430; 71045; 74177; 80053; 81001; 82272; 82728; 83540; 83550; 83615; 83690; 84145; 84484; 85007; 85025; 86850; 86900; 86920; 93005; 94640; 96361; 96365; 96367; 96375; 96376; 99285; G0378; J1956; J2270; J2405; J2920; J7030; P9016; Q9967

== ENCOUNTER 2021-03-26 08:09 | Outpatient (CLI) | payer MEDICARE, OTHER, SELFPAY ==
[2021-03-26 10:11] LABS: Hematocrit 30.3 % (42.0-52.0); Hemoglobin 9.3 g/dL (11.7-16.6); Mean Corpuscular HGB Conc 30.7 g/dL (30.0-36.0); Mean Corpuscular Hemoglobin 23.4 pg (28.0-34.0); Mean Corpuscular Volume 76.3 fL (80-94); Platelet Count 144 10^3/cmm (130-400); Red Blood Count 3.97 10^6/uL (4.1-5.3); Red Cell Distribution Width 27.7 % (12.1-15.1); Reticulocyte % 1.2 % (0.5-2.0); White Blood Count 5.7 10^3/uL (4.0-10.0)
[2021-03-26 10:33] LABS: Alanine Aminotransferase 35 U/L (0-41); Albumin Level 3.3 g/dL (3.5-5.2); Alkaline Phosphatase 88 IU/L (40-130); Anion Gap 15.7 (5-19); Aspartate Amino Transferase 35 U/L (0-40); Blood Urea Nitrogen 28 mg/dL (8-23); C Reactive Protein 186.4 mg/L (0.0-4.9); Calcium 9.2 mg/dL (8.5-10.5); Carbon Dioxide 25 mmol/L (22-29); Chloride 106 mmol/L (98-107); Globulin 2.4 g/dL (1.3-4.6); Glucose 152 mg/dL (65-115); Iron 54 ug/dL (59-158); Lactate Dehydrogenase 123 U/L (135-225); Osmolality Calculated 302 mOsm/kg (285-295); Percent Saturation 34.6 % (20-50); Potassium 4.7 mmol/L (3.5-5.1); Sodium 142 mmol/L (136-145); Total Bilirubin 0.6 mg/dL (0.15-1.2); Total Iron Binding Capacity 156 mcg/dl; Total Protein 5.7 g/dL (6.6-8.7); Unsaturated Iron Binding 102 ug/dL (112-347)
[2021-03-26 10:55] LABS: Slide Review Slide Review Perform
[2021-03-26 11:03] LABS: Erythrocyte Sedimentation Rate 48 mm/hr (0-10)
[2021-03-26 11:04] LABS: Ferritin 4087 ng/mL (30-400)
[2021-03-26 11:05] LABS: Absolute Eosinophils 0.1 10^3/cmm (0.0-0.7); Absolute Neutrophil 3.8 10^3/cmm (1.4-6.5); Absolute Segmented Neutrophil 3.8 10/cmm (1.6-7.1); Eosinophils 3 %; Lymphocytes 16 %; Lymphocytes Absolute 1.4 10^3/cmm (1.2-3.4); Monocytes Absolute 0.1 10^3/cmm (0.1-0.6); Platelet Estimate Normal (Normal); Segmented Neutrophils 67 %; Total Cells Counted 100 (0-100)
[2021-03-26 11:06] LABS: Acanthocytes 1+; Anisocytosis 2+; Burr Cells 2+; Microcytosis Trace; Ovalocytes 1+; Poikilocytosis 2+; Schistocytes 1+
[2021-03-26 11:07] LABS: LAB Peripheral Smear Sent for Review
[2021-03-26 13:17] LABS: Vitamin B12 > 2000 pg/mL (232-1245)
[2021-03-26 18:15] LABS: Immunoglobulin IGA 50 mg/dL (70-400); Immunoglobulin IGM 153 mg/dL (40-230)
[2021-03-26 18:33] LABS: Immunoglobulin IGG < 300 mg/dL (700-1600)
[2021-03-27 10:43] LABS: PROTEIN, TOTAL 5.2 g/dL (6.1-8.1)
[2021-03-29 14:48] LABS: Anti-Nuclear Antibody Screen NEGATIVE (NEGATIVE)
[2021-03-29 17:03] LABS: ALBUMIN 2.8 g/dL (3.8-4.8); ALPHA 1 GLOBULIN 0.7 g/dL (0.2-0.3); ALPHA 2 GLOBULIN 0.9 g/dL (0.5-0.9); BETA 1 GLOBULIN 0.3 g/dL (0.4-0.6); BETA 2 GLOBULIN 0.2 g/dL (0.2-0.5); GAMMA GLOBULIN 0.3 g/dL (0.8-1.7)
== END 2021-03-26 08:10 | disposition home or self-care (01) ==
PROVIDERS: PCP Emergency Medicine Emergency Medical Services; Visit Provider Internal Medicine Medical Oncology
DX: E83.110 Hereditary hemochromatosis (principal); E78.5 Hyperlipidemia, unspecified; F41.9 Anxiety disorder, unspecified; Z85.72 Personal history of non-Hodgkin lymphomas; Z79.899 Other long term (current) drug therapy
CPT/HCPCS: 80053; 82607; 82728; 82746; 82784; 83010; 83540; 83550; 83615; 84155; 84165; 85007; 85025; 85045; 85651; 86038; 86140; 86431

== ENCOUNTER 2021-03-29 08:34 | Outpatient (CLI) | payer MEDICARE, OTHER, SELFPAY ==
--- NOTE | 2021-03-29 12:23 | ONC FU_ITS ---
Dr. Fallon Patient Follow-Up Note Patient: SHANNA RIVERA Unit #: [id number]: 1945 Dicatated By: Erik Fallon M.D.Date of Visit:Mar 26, 2021 Onc Med Follow-up/Prog Note Chief Complaint: Lymphoma/anemia. History of Present Illness: This is a 75 year-old man with a history of diffuse large B-cell lymphoma. He is seen now because of anemia. He had presented in August of 2007 with a 6 cm mass in the upper abdomen, anterior and lateral to the superior mesenteric-portal vein. He had an early relapse following initial treatment with 5 cycles of R-CHOP chemotherapy, which he had completed in November 2007. He then underwent salvage chemotherapy with R-ESHAP followed by GemOx and subsequent high-dose chemotherapy/stem cell transplant at [facility] in October of 2008. Following that procedure, he developed persistent thrombocytopenia and he continued to have fairly marginal performance status. As of his follow-up visit in December 2012 there have been no evidence of recurrence of the lymphoma by restaging CT scan and repeat bone marrow aspiration/biopsy. At that time, he had evidence of severe hypogammaglobulinemia, but he was not overtly symptomatic with it. 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 However, I did not recommend any treatment for it, as his transferrin saturation was low and that particular genotype was not reported to be associated with hereditary hemochromatosis. I had seen him for follow-up on 01/24/2018. CBC was unremarkable with hemoglobin 15.3 g, white blood cell count 9800, and platelet count 245,000. Comprehensive metabolic profile showed BUN 15 and creatinine 1.4 mg/dL. Liver enzymes were normal. His LDH was 73 U/mL with the lower limit of normal at 87 U/mL. The most significant finding was an elevated sedimentation rate at 92 mm/hour and elevated CRP at 10.600 mg/dL. TSH was normal at 3.050 mIU/mL. The serum iron studies show transferrin saturation 17.3% with ferritin elevated at 1975 ng/mL. He had further evaluation with PET/CT on 02/03/2018. It showed a small region of flocculent soft tissue to the left of the celiac axis demonstrating minimal FDG activity. This was thought to perhaps be inflammatory. Hazy mesentery was noted to be greatly improved compared to the prior study from April 2008. There were no other areas of abnormal FDG uptake. A large right pleural effusion noted on the prior study was noted to have resolved. With those findings, he continued on expectant management. His other medical illnesses include hypertension, hypercholesterolemia, benign prostatic hypertrophy, and chronic anxiety. He also has a history of peptic ulcer disease, and he does have some degenerative arthritis. He had smoked cigars in the past, but he quit at least 25-30 years ago. He has never smoked cigarettes. 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 INTERIM HISTORY: On 03/24/2021 he had presented to the emergency room with abdominal pain and weakness. He had recently been seen in an emergency room in [place] and had been treated for bronchitis. At that time he was having shortness of breath and cough, but he then became progressively weak urine he also complained of having a lot of stomach pain. He was found to be significantly anemic with hemoglobin 7.8 g and hematocrit 25.8%. The red cell indices were significantly hypochromic/microcytic with MCV 72 and MCH 21. A stool Hemoccult done in the emergency room was reported to be negative. Chest x-ray showed coarsening of interstitial markings throughout both lungs, felt to be probably chronic in nature. His contrast enhanced CT abdomen/pelvis showed bilateral nephrolithiasis without evidence of obstructive uropathy. There were no other acute findings in the abdomen/pelvis and there was no significant interval change compared to a prior study from December 2020. In particular, there were no pathologically enlarged lymph nodes identified. He was admitted and by the following day there was further drop in the hemoglobin to 7.3 g, at which point he was given a PRBC transfusion. His further laboratory studies included serum iron studies which showed a low serum iron at 16 mcg/dL and low transferrin saturation at 12.0%. The serum ferritin, though, was significantly elevated at 3037 ng/mL. He is seen now for a follow-up visit. He still feels really weak, though he is ambulatory. His ECOG score is 2. His appetite is not good, but his weight has been stable. He has had low-grade fever off and on, maximum a little over 100 degrees. He has been having night sweating off and on. He has sinus drainage he also complains of having a sore tongue. His cough is a little better. He says his breathing is okay now. He has not had chest pain. He was a little nauseated at times he does have acid reflux symptoms. 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 Recently he has had constipation. He has not been aware of any blood in the stool. He does report having a lot of pain in his stomach, mainly the upper abdomen. His urination is slow. He recently noted that his hands and feet swelled up and he has had joint pain, particularly in the hips. However, he complains that his whole body hurts. He does not complain of headache. He has only a little bit of dizziness. 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 Medications: Bee Caps Caplet, Flomax 1 (0.4 mg) Capsule Oral daily, Multi-Vitamin 1 Tablet Oral daily, Omeprazole 1 - 2 (20 mg) Capsule Delayed Release Oral daily, Probiotic Multi-Enzyme Tablet Oral, TraMADol HCl 1 Tablet (of 50 mg) Oral b.i.d., Vitamin D3 1 (2000 Units) Capsule Oral daily, ZyrTEC Allergy 1 (10 mg) Tablet Oral daily Allergies: Dilaudid, IV Ativan, and Penicillins. Vital Signs: Performed on Mar 26, 2021 09:13 Height - 71.00 in Weight - 194.8 lbs (LOW) BSA - 2.09 sq.m BMI - 27.17 Temperature - 98.3 F (LOW) Pulse - 69 /min Respiration - 18 /min BP - 126/82 mm(hg) O2 Sat - 97 % Pain - 3 Fatigue - 9 Physical Examination: Constitutional - He appears somewhat weak generally, but not acutely ill, Eyes - Sclerae nonicteric. Conjunctivae clear, ENMT - No lesions noted in the oral cavity, Hematologic/Lymphatic - No cervical, clavicular, or axillary adenopathy, Respiratory - Lungs sound clear. He has good air movement bilaterally, Cardiovascular - Heart is regular. There is no murmur, gallop, or rub noted, Abdomen - Mildly distended but soft. Liver and spleen are not enlarged. There is no abdominal mass or ascites noted and there is no inguinal adenopathy, Extremities - There no lower extremity edema. There is some slight soft tissue swelling in the hands. There are scattered purpuric lesions on the arms, Neurologic - No focal neurologic deficits noted. Problem List: 1. Moderately severe anemia, hypochromic/microcytic. 2. History of diffuse large B-cell lymphoma, in remission. 3. 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 Treatment was not recommended, as his transferrin saturation was low and that genotype was not reported to be associated with hereditary hemochromatosis. 4. He had severe hypogammaglobulinemia. He did not receive replacement therapy, as he did not appear to be symptomatic with it. 5. He also had significantly elevated inflammatory markers, but with no clinical evidence for a specific underlying cause. 6. Hypertension. 7. Hyperlipidemia. 8. Benign prostatic hypertrophy. 9. GERD/peptic ulcer disease. 10. Degenerative arthritis. 11. Chronic anxiety. Problems Addressed with this Encounter and Plan: 1. Patient with moderately severe anemia. This does appear to be due to iron deficiency based on the hypochromic/microcytic red cell indices and low transferrin saturation. The cause is uncertain, but GI blood loss is suspected. As such, he will have additional laboratory studies today to include repeat CBC with CMP, sedimentation rate, CRP level, reticulocyte count LDH level, haptoglobin level, NEHEMIAS and RA titers, quantitative immunoglobulin levels, and serum protein electropheresis. I will review the blood smear, and I also will have him bring in another stool sample for FIT. He will have further evaluation as indicated. 2. He has a history of diffuse large B-cell lymphoma, presenting in August 2007 with 6 cm mass in the upper abdomen. He had early relapse following initial treatment with 5 cycles of R-CHOP chemotherapy, which he had completed in November 2007. He then underwent salvage chemotherapy with R-ESHAP followed by [place]/Ox and subsequent high-dose chemotherapy/stem cell transplant at [facility] in October 2008. His subsequent clinical course was complicated by persistent thrombocytopenia and marginal performance status, but as of his followup visit in January 2018 there was no evidence of recurrence of the lymphoma. As the studies completed thus far have still show no evidence of recurrence of the lymphoma, he will continue expectant management. I will repeat the PET/CT and or bone marrow aspiration/biopsy only as indicated. 3. He has a significantly elevated serum ferritin. 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 Treatment was not recommended, as his transferrin saturation was low and that genotype was not reported to be associated with hereditary hemochromatosis. A specific cause for the elevated ferritin has not been determined, but is presumed to be elevated on the basis of an acute phase reactant, as he has had significantly elevated inflammatory markers. He will have further evaluation as indicated, depending on the outcome of his current laboratory studies. Signed By: Erik Fallon M.D. <<Signature on File>>
== END 2021-03-29 08:35 | disposition home or self-care (01) ==
PROVIDERS: PCP Emergency Medicine Emergency Medical Services; Visit Provider Internal Medicine Medical Oncology
DX: E83.110 Hereditary hemochromatosis (principal); D50.9 Iron deficiency anemia, unspecified; E78.5 Hyperlipidemia, unspecified; F41.9 Anxiety disorder, unspecified; N40.0 Benign prostatic hyperplasia without lower urinary tract symptoms; Z79.899 Other long term (current) drug therapy
CPT/HCPCS: 82274; 99215

== ENCOUNTER 2021-03-31 06:29 | Inpatient (IN) | payer MEDICARE, OTHER, SELFPAY ==
[2021-03-31] VITALS (13 sets, daily range): BP systolic 104–142; BP diastolic 38–80; PULSE 76–95; RESP 12–26; TEMP 36.7–38.6; O2SAT 90–95; BMI 25.7
--- NOTE | 2021-03-31 06:37 | XRR_ITS ---
PROCEDURE INFORMATION: Exam: XR Chest Exam date and time: 03/31/2021 6:37 AM Age: 75 years old Clinical indication: Cough and dyspnea; Patient HX: SOB coughing x 6 weeks, ; additional info: Chest pain TECHNIQUE: Imaging protocol: XR of the chest. Views: 1 view. COMPARISON: 1. CR XR chest 1V portable [id number] 03/24/2021 3:52 PM 2. CR Chest 2 views* [id number] 01/20/2018 5:14 PM 3. CR Chest 2 views* [id number] 11/25/2016 2:29 PM 4. CTA Thoracic/Abd/Pelvis Aorta 01/20/2018 5:50 PM FINDINGS: Lungs: Unremarkable. No consolidation. Pleural spaces: Unremarkable. No pleural effusion. No pneumothorax. Heart/Mediastinum: Unremarkable. No cardiomegaly. Bones/joints: Unremarkable. XR/XR chest 1V portable [id number] IMPRESSION: No acute findings.
--- NOTE | 2021-03-31 06:37 | ECG_ITS ---
[facility] Test Date: 2021-03-31 Pat Name: Seth Cadet Department: Room: Gender: Male [employer]: : 1945 Requested By: Paulo Fam Order Number: [id number] Rajwinder MD: Rigo Guy M.D. Measurements Intervals Anderson Rate: 90 P: 33 WV: 148 QRS: -50 QRSD: 131 T: 20 QT: 377 QTc: 462 Interpretive Statements SINUS RHYTHM RIGHT BUNDLE BRANCH BLOCK [120+ ms QRS DURATION, UPRIGHT V1, 40+ ms S IN I/aVL/V4/V5/V6] LEFT ANTERIOR FASCICULAR BLOCK [QRS AXIS <= -45, QR IN I, RS IN II] MINIMAL VOLTAGE CRITERIA FOR LVH, CONSIDER NORMAL VARIANT [MEETS CRITERIA IN ONE OF: R(aVL), S(V1), R(V5), R(V5/V6)+S(V1)] POSSIBLE SEPTAL MYOCARDIAL INFARCTION [30 ms Q WAVE IN V1/V2], PROBABLY OLD Compared to ECG 01/20/2018 16:33:07 Left anterior fascicular block now present Left-axis deviation no longer present Myocardial infarct finding still present Electronically Signed On 03-31-2021 20:04:41 CDT by Rigo Guy M.D. [id number]
[2021-03-31 06:48] LABS: Mean Corpuscular Volume 78.4 fL (80-94)
--- NOTE | 2021-03-31 06:49 | ED_ITS ---
HPI - Chest Pain General: Chief Complaint: Chest Pain Stated Complaint: chest pain Time Seen by Provider: 03/31/21 06:31 History of Present Illness: HPI narrative: 75-year-old male presents emergency room via EMS complaining of chest pain. On arrival at the scene he was 89% on room air. On arrival here he is on 4 L not returning back down to 2 and he is able to maintain his oxygen saturation. A few weeks ago he was hospitalized in [place] for bronchitis and discharged home was tested for Covid at that time and was negative as far as he is aware he is not had Covid last year he has not been vaccinated. He was hospitalized again in mid March and discharged home on 03/25. At that time he had abdominal pain microcytic anemia and bronchitis. he does have a history of Non-Hodgkin's lymphoma as well as BPH. His main complaint today is difficulty breathing and chest discomfort. He has a productive cough has had for the last several weeks that is pretty much unchanged since his hospitalization in [place]. He has no known history of coronary artery disease he is not diabetic. On arrival here today he has a temp of 1024. MD complaint: chest pain Pertinent past history: other Timing of current episode: constant Prior episodes: Yes Onset: during rest Pain location: substernal Pain radiation: none Relieving factors: nothing Exacerbating factors: nothing Associated symptoms: Reports dyspnea and fever(s); Deny abdominal pain, diaphoresis, leg edema, nausea, palpitations, sense of impending doom, syncope or vomiting Treatment prior to arrival: oxygen Review of Systems Const: Reports: fever(s); Denies: diaphoresis ENMT: Denies: throat pain, ear or mastoid pain, nasal discharge or nasal congestion Card: Denies: palpitations or syncope Resp: Reports: dyspnea GI: Denies: abdominal pain, nausea or vomiting : Denies: flank pain, dysuria, urinary frequency or urinary urgency Skin/Breast: Denies: rash or pruritus PFSH ED PFSH: Medical History (Updated 04/03/21 @ 07:12 by Paulo Calvo DO) BPH loc w urin obs/LUTS Bronchitis DJD (degenerative joint disease) GERD (gastroesophageal reflux disease) History of hyperlipidemia History of hypertension Incomplete bladder emptying Left flank pain Non-Hodgkins lymphoma Diagnosed 2006, B-cell. Stem cell transplant 2008 Renal calculi Right distal ureteral calculus Family History Father , at age 54 Diabetes Heart attack Mother Hypertension Social History Smoking and tobacco status: former smoker Alcohol intake: never Marital status: Current occupational status: employed History of recent travel: No Physical Exam Const: COMMON NORMALS: no acute distress GENERAL APPEARANCE: cooperative and comfortable ORIENTATION/CONSCIOUSNESS: Yes awake, Yes oriented to person, Yes oriented to place and Yes oriented to time HENMT: COMMON NORMALS: normocephalic, atraumatic, hearing grossly normal bilaterally and external ears normal HEAD & SCALP: normocephalic and atraumatic EXTERNAL EAR: Yes external ears normal Neck/C-Spine: COMMON NORMALS: no JVD Resp: AUSCULTATION: rales and wheezes Cardio: COMMON NORMALS: no JVD, regular rate, regular rhythm and No murmurs present (Cardio) RATE: regular rate RHYTHM: regular rhythm GI: COMMON NORMALS: Soft to palpation and No hepatosplenomegaly present AUSCULTATION: Yes normoactive bowel sounds PALPATION: Yes Soft to palpation, No Tenderness to palpation present (GI), No Guarding due to palpation present (GI) and Yes No hepatosplenomegaly present Extremity: COMMON NORMALS: no calf tenderness and no pedal edema Neuro: SENSORIUM/ORIENTATION: Yes oriented to person, Yes oriented to place and Yes oriented to time Skin: COMMON NORMALS: no rashes or lesions noted GENERAL SKIN EXAM: no rashes or lesions noted Course Vital Signs: Vital signs: Vital Signs Temperature 97.0 F L 04/03/21 03:56 Pulse Rate 61 04/03/21 06:00 Respiratory Rate 18 04/03/21 03:56 Blood Pressure 134/75 04/03/21 03:56 Pulse Oximetry 93 04/03/21 03:56 MDM - Chest Pain MDM Narrative: Medical decision making narrative: Patient febrile with a pneumonia. Wearing go ahead and admit started on IV antibiotics discussed with Dr. Fallon and he will look at the peripheral smear. Patient has pancytopenia. They have been concerned with his symptoms recently and have a outpatient work up ongoing. Discussed Dr. Richard orders are written. Lab Data: Labs: Lab Results 03/31/21 03/31/2103/31/21 Range/Units 06:00 06:00 06:00 WBC 3.1 L (4.0-10.0) 10^3/ uL RBC 4.50 (4.1-5.3) 10^6/u L Hgb 10.7 L (11.7-16.6) g/dL Hct 35.3 L (42.0-52.0) % MCV 78.4 L (80-94) fL MCH 23.8 L (28.0-34.0) pg MCHC 30.3 (30.0-36.0) g/dL RDW 28.9 H (12.1-15.1) % Plt Count 104 L (130-400) 10^3/c mm MPV 11.0 H (7.4-10.4) fL Lymph % (Auto) Not Reportable [place] % (Auto) Not Reportable Lymph # (Auto) Not Reportable [place] # (Auto) Not Reportable Total Counted 100 (0-100) Atypical Lymphs % 0.0 (0-5) % Absolute Neutrophi ls 2.3 (1.4-6.5) 10^3/c mm Segmented Neutroph ils 25 % Abs Segm Neuts (Ma n) 0.8 L (1.6-7.1) 10/cmm Band Neutrophils 50.0 % Abs Band Neuts (Ma n) 1.6 H (0.0-1.2) 10^3/c mm Absolute Lymphocyt es 0.3 L (1.2-3.4) 10^3/c mm Lymphocytes (Manua l) 9 % Monocytes (Manual) 3.0 % Absolute Monocytes 0.1 (0.1-0.6) 10^3/c mm Eosinophils (Manua l) 6 % Absolute Eosinophi ls 0.1 (0.0-0.7) 10^3/c mm Basophils (Manual) 0.0 % Absolute Basophils 0.0 (0.0-0.2) 10^3/c mm Metamyelocytes 3.0 % Myelocytes 4.0 % Platelet Estimate Decreased (Normal) Poikilocytosis 2+ H Anisocytosis 2+ H Schistocytes Trace Specimen Type Sample Site ABG pH (7.35-7.45) ABG pCO2 (35-45) mmHg ABG pO2 (80.0-100.0) mmH g ABG HCO3 (22-26) mmol/L ABG O2 Saturation ABG Base Excess (-2.0-2.0) mmol/ L Rebel Test A-a O2 Gradient (5-10) mmHg Hematocrit (42-52) % Hgb O2 Saturation (95-100) % Carboxyhemoglobin (0.4-20.1) %THgb Methemoglobin (0.4-1.5) % Total Hemoglobin (14-18) g/dL Ionized Calcium (1.1-1.4) mmol/L O2 Delivery Device O2 Liters/Min % FiO2 % Fleet Service Manager ID Sodium 135 L (136-145) mmol/L Potassium 4.8 (3.5-5.1) mmol/L Chloride 96 L (98-107) mmol/L Carbon Dioxide 28 (22-29) mmol/L Anion Gap 15.8 (5-19) BUN 23 (8-23) mg/dL Creatinine 1.3 H (0.7-1.2) mg/dL GFR Calculation Not Reportable Glucose 139 H (65-115) mg/dL Calculated Osmolal ity 286 (285-295) mOsm/k g Lactic Acid (0.5-2.2) mmol/L Calcium 8.7 (8.5-10.5) mg/dL Total Bilirubin 0.9 (0.15-1.2) mg/dL AST 22 (0-40) U/L ALT 26 (0-41) U/L Alkaline Phosphata se 93 (40-130) IU/L Lactate Dehydrogen ase (135-225) U/L Troponin T Baselin e 19 H (0-15) ng/L Troponin T 120 Min [place] (0-15) ng/L Delta Troponin T (0-10) ABS# Total Protein 5.9 L (6.6-8.7) g/dL Albumin 3.8 (3.5-5.2) g/dL Globulin 2.1 (1.3-4.6) g/dL TSH (0.27-4.20) uIU/ mL Urine Color (Yellow) Urine Appearance (CLEAR) Urine pH (5-7) Ur Specific Gravit y (1.005-1.030) Urine Protein (Negative) Urine Glucose (UA) (Normal) Urine Ketones (Negative) Urine Blood (Negative) Urine Nitrate (Negative) Urine Bilirubin (Negative) Urine Urobilinogen (Negative) mg/dL Ur Leukocyte Patrizia ase (Negative) Nasal/Oral COVID-1 9 PCR Influenza Type A A g (Negative) Influenza Type B A g (Negative) SARS-CoV-2 Ag (Rap id) (Negative) 03/31/21 03/31/21 03/31/21 Range/Units 06:40 06:40 06:40 WBC (4.0-10.0) 10^3/ uL RBC (4.1-5.3) 10^6/u L Hgb (11.7-16.6) g/dL Hct (42.0-52.0) % MCV (80-94) fL MCH (28.0-34.0) pg MCHC (30.0-36.0) g/dL RDW (12.1-15.1) % Plt Count (130-400) 10^3/c mm MPV (7.4-10.4) fL Lymph % (Auto) [place] % (Auto) Lymph # (Auto) [place] # (Auto) Total Counted (0-100) Atypical Lymphs % (0-5) % Absolute Neutrophi ls (1.4-6.5) 10^3/c mm Segmented Neutroph ils % Abs Segm Neuts (Ma n) (1.6-7.1) 10/cmm Band Neutrophils % Abs Band Neuts (Ma n) (0.0-1.2) 10^3/c mm Absolute Lymphocyt es (1.2-3.4) 10^3/c mm Lymphocytes (Manua l) % Monocytes (Manual) % Absolute Monocytes (0.1-0.6) 10^3/c mm Eosinophils (Manua l) % Absolute Eosinophi ls (0.0-0.7) 10^3/c mm Basophils (Manual) % Absolute Basophils (0.0-0.2) 10^3/c mm Metamyelocytes % Myelocytes % Platelet Estimate (Normal) Poikilocytosis Anisocytosis Schistocytes Specimen Type Sample Site ABG pH (7.35-7.45) ABG pCO2 (35-45) mmHg ABG pO2 (80.0-100.0) mmH g ABG HCO3 (22-26) mmol/L ABG O2 Saturation ABG Base Excess (-2.0-2.0) mmol/ L Rebel Test A-a O2 Gradient (5-10) mmHg Hematocrit (42-52) % Hgb O2 Saturation (95-100) % Carboxyhemoglobin (0.4-20.1) %THgb Methemoglobin (0.4-1.5) % Total Hemoglobin (14-18) g/dL Ionized Calcium (1.1-1.4) mmol/L O2 Delivery Device O2 Liters/Min % FiO2 % Fleet Service Manager ID Sodium (136-145) mmol/L Potassium (3.5-5.1) mmol/L Chloride (98-107) mmol/L Carbon Dioxide (22-29) mmol/L Anion Gap (5-19) BUN (8-23) mg/dL Creatinine (0.7-1.2) mg/dL GFR Calculation Glucose (65-115) mg/dL Calculated Osmolal ity (285-295) mOsm/k g Lactic Acid 1.0 (0.5-2.2) mmol/L Calcium (8.5-10.5) mg/dL Total Bilirubin (0.15-1.2) mg/dL AST (0-40) U/L ALT (0-41) U/L Alkaline Phosphata se (40-130) IU/L Lactate Dehydrogen ase 112 L (135-225) U/L Troponin T Baselin e (0-15) ng/L Troponin T 120 Min [place] (0-15) ng/L Delta Troponin T (0-10) ABS# Total Protein (6.6-8.7) g/dL Albumin (3.5-5.2) g/dL Globulin (1.3-4.6) g/dL TSH 3.67 (0.27-4.20) uIU/ mL Urine Color (Yellow) Urine Appearance (CLEAR) Urine pH (5-7) Ur Specific Gravit y (1.005-1.030) Urine Protein (Negative) Urine Glucose (UA) (Normal) Urine Ketones (Negative) Urine Blood (Negative) Urine Nitrate (Negative) Urine Bilirubin (Negative) Urine Urobilinogen (Negative) mg/dL Ur Leukocyte Patrizia ase (Negative) Nasal/Oral COVID-1 9 PCR Influenza Type A A g (Negative) Influenza Type B A g (Negative) SARS-CoV-2 Ag (Rap id) (Negative) 03/31/21 03/31/21 03/31/21 Range/Units 07:13 07:13 07:15 WBC (4.0-10.0) 10^3/ uL RBC (4.1-5.3) 10^6/u L Hgb (11.7-16.6) g/dL Hct (42.0-52.0) % MCV (80-94) fL MCH (28.0-34.0) pg MCHC (30.0-36.0) g/dL RDW (12.1-15.1) % Plt Count (130-400) 10^3/c mm MPV (7.4-10.4) fL Lymph % (Auto) [place] % (Auto) Lymph # (Auto) [place] # (Auto) Total Counted (0-100) Atypical Lymphs % (0-5) % Absolute Neutrophi ls (1.4-6.5) 10^3/c mm Segmented Neutroph ils % Abs Segm Neuts (Ma n) (1.6-7.1) 10/cmm Band Neutrophils % Abs Band Neuts (Ma n) (0.0-1.2) 10^3/c mm Absolute Lymphocyt es (1.2-3.4) 10^3/c mm Lymphocytes (Manua l) % Monocytes (Manual) % Absolute Monocytes (0.1-0.6) 10^3/c mm Eosinophils (Manua l) % Absolute Eosinophi ls (0.0-0.7) 10^3/c mm Basophils (Manual) % Absolute Basophils (0.0-0.2) 10^3/c mm Metamyelocytes % Myelocytes % Platelet Estimate (Normal) Poikilocytosis Anisocytosis Schistocytes Specimen Type Arterial Sample Site Radial, left ABG pH 7.47 H (7.35-7.45) ABG pCO2 36.8 (35-45) mmHg ABG pO2 74.0 L (80.0-100.0) mmH g ABG HCO3 26.7 H (22-26) mmol/L ABG O2 Saturation 96.2 ABG Base Excess 3.0 H (-2.0-2.0) mmol/ L Rebel Test Pos A-a O2 Gradient 14.1 H (5-10) mmHg Hematocrit 30.2 L (42-52) % Hgb O2 Saturation 94.0 L (95-100) % Carboxyhemoglobin 1.5 (0.4-20.1) %THgb Methemoglobin 0.8 (0.4-1.5) % Total Hemoglobin 9.8 L (14-18) g/dL Ionized Calcium 1.2 (1.1-1.4) mmol/L O2 Delivery Device Nc O2 Liters/Min 3.0 % FiO2 32.0 % Fleet Service Manager ID Cak Sodium 134.0 (136-145) mmol/L Potassium 4.4 (3.5-5.1) mmol/L Chloride (98-107) mmol/L Carbon Dioxide (22-29) mmol/L Anion Gap (5-19) BUN (8-23) mg/dL Creatinine (0.7-1.2) mg/dL GFR Calculation Glucose 136.0 H (65-115) mg/dL Calculated Osmolal ity (285-295) mOsm/k g Lactic Acid (0.5-2.2) mmol/L Calcium (8.5-10.5) mg/dL Total Bilirubin (0.15-1.2) mg/dL AST (0-40) U/L ALT (0-41) U/L Alkaline Phosphata se (40-130) IU/L Lactate Dehydrogen ase (135-225) U/L Troponin T Baselin e (0-15) ng/L Troponin T 120 Min [place] (0-15) ng/L Delta Troponin T (0-10) ABS# Total Protein (6.6-8.7) g/dL Albumin (3.5-5.2) g/dL Globulin (1.3-4.6) g/dL TSH (0.27-4.20) uIU/ mL Urine Color (Yellow) Urine Appearance (CLEAR) Urine pH (5-7) Ur Specific Gravit y (1.005-1.030) Urine Protein (Negative) Urine Glucose (UA) (Normal) Urine Ketones (Negative) Urine Blood (Negative) Urine Nitrate (Negative) Urine Bilirubin (Negative) Urine Urobilinogen (Negative) mg/dL Ur Leukocyte Patrizia ase (Negative) Nasal/Oral COVID-1 9 PCR Not detected Influenza Type A A g Negative (Negative) Influenza Type B A g Negative (Negative) SARS-CoV-2 Ag (Rap id) (Negative) 03/31/21 03/31/21 03/31/21 Range/Units 07:15 07:56 08:02 WBC (4.0-10.0) 10^3/ uL RBC (4.1-5.3) 10^6/u L Hgb (11.7-16.6) g/dL Hct (42.0-52.0) % MCV (80-94) fL MCH (28.0-34.0) pg MCHC (30.0-36.0) g/dL RDW (12.1-15.1) % Plt Count (130-400) 10^3/c mm MPV (7.4-10.4) fL Lymph % (Auto) [place] % (Auto) Lymph # (Auto) [place] # (Auto) Total Counted (0-100) Atypical Lymphs % (0-5) % Absolute Neutrophi ls (1.4-6.5) 10^3/c mm Segmented Neutroph ils % Abs Segm Neuts (Ma n) (1.6-7.1) 10/cmm Band Neutrophils % Abs Band Neuts (Ma n) (0.0-1.2) 10^3/c mm Absolute Lymphocyt es (1.2-3.4) 10^3/c mm Lymphocytes (Manua l) % Monocytes (Manual) % Absolute Monocytes (0.1-0.6) 10^3/c mm Eosinophils (Manua l) % Absolute Eosinophi ls (0.0-0.7) 10^3/c mm Basophils (Manual) % Absolute Basophils (0.0-0.2) 10^3/c mm Metamyelocytes % Myelocytes % Platelet Estimate (Normal) Poikilocytosis Anisocytosis Schistocytes Specimen Type Sample Site ABG pH (7.35-7.45) ABG pCO2 (35-45) mmHg ABG pO2 (80.0-100.0) mmH g ABG HCO3 (22-26) mmol/L ABG O2 Saturation ABG Base Excess (-2.0-2.0) mmol/ L Rebel Test A-a O2 Gradient (5-10) mmHg Hematocrit (42-52) % Hgb O2 Saturation (95-100) % Carboxyhemoglobin (0.4-20.1) %THgb Methemoglobin (0.4-1.5) % Total Hemoglobin (14-18) g/dL Ionized Calcium (1.1-1.4) mmol/L O2 Delivery Device O2 Liters/Min % FiO2 % Fleet Service Manager ID Sodium (136-145) mmol/L Potassium (3.5-5.1) mmol/L Chloride (98-107) mmol/L Carbon Dioxide (22-29) mmol/L Anion Gap (5-19) BUN (8-23) mg/dL Creatinine (0.7-1.2) mg/dL GFR Calculation Glucose (65-115) mg/dL Calculated Osmolal ity (285-295) mOsm/k g Lactic Acid (0.5-2.2) mmol/L Calcium (8.5-10.5) mg/dL Total Bilirubin (0.15-1.2) mg/dL AST (0-40) U/L ALT (0-41) U/L Alkaline Phosphata se (40-130) IU/L Lactate Dehydrogen ase (135-225) U/L Troponin T Baselin e (0-15) ng/L Troponin T 120 Min [place] 16.08 H (0-15) ng/L Delta Troponin T -2.92 L (0-10) ABS# Total Protein (6.6-8.7) g/dL Albumin (3.5-5.2) g/dL Globulin (1.3-4.6) g/dL TSH (0.27-4.20) uIU/ mL Urine Color Yellow (Yellow) Urine Appearance Clear (CLEAR) Urine pH 5 (5-7) Ur Specific Gravit y 1.020 (1.005-1.030) Urine Protein Neg (Negative) Urine Glucose (UA) Norm (Normal) Urine Ketones Negative (Negative) Urine Blood Neg (Negative) Urine Nitrate Negative (Negative) Urine Bilirubin Neg (Negative) Urine Urobilinogen Norm (Negative) mg/dL Ur Leukocyte Patrizia ase Negative (Negative) Nasal/Oral COVID-1 9 PCR Influenza Type A A g (Negative) Influenza Type B A g (Negative) SARS-CoV-2 Ag (Rap id) Negative (Negative) Discharge Plan Discharge Patient Disposition: Admitted As Inpatient Admit Provider: Surya Martínez Clinical Impression: Pneumonia, Acute respiratory failure with hypoxia, Non-Hodgkins lymphoma, Pancytopenia, Microcytic anemia Condition: Stable Coding Level of Care Code ED Typewriter Ribbon Winder for Wes Fwkylee Exam Comprehensive
[2021-03-31 06:53] LABS: Hematocrit 35.3 % (42.0-52.0); Hemoglobin 10.7 g/dL (11.7-16.6); Mean Corpuscular HGB Conc 30.3 g/dL (30.0-36.0); Mean Corpuscular Hemoglobin 23.8 pg (28.0-34.0); Platelet Count 104 10^3/cmm (130-400); Red Cell Distribution Width 28.9 % (12.1-15.1); White Blood Count 3.1 10^3/uL (4.0-10.0)
[2021-03-31 07:06] LABS: Alanine Aminotransferase 26 U/L (0-41); Albumin Level 3.8 g/dL (3.5-5.2); Alkaline Phosphatase 93 IU/L (40-130); Anion Gap 15.8 (5-19); Aspartate Amino Transferase 22 U/L (0-40); Blood Urea Nitrogen 23 mg/dL (8-23); Calcium 8.7 mg/dL (8.5-10.5); Carbon Dioxide 28 mmol/L (22-29); Chloride 96 mmol/L (98-107); Globulin 2.1 g/dL (1.3-4.6); Glucose 139 mg/dL (65-115); Osmolality Calculated 286 mOsm/kg (285-295); Potassium 4.8 mmol/L (3.5-5.1); Sodium 135 mmol/L (136-145); Total Bilirubin 0.9 mg/dL (0.15-1.2); Total Protein 5.9 g/dL (6.6-8.7)
[2021-03-31 07:07] LABS: Troponin(5th) Baseline 19 ng/L (0-15)
[2021-03-31 07:24] LABS: ABG PCO2 36.8 mmHg (35-45); ABG PH Result 7.47 (7.35-7.45); Alveolar-Arterial Oxygen Gradi 14.1 mmHg (5-10); Arterial Blood Gas Hematocrit 30.2 % (42-52); Blood Gas Allen Test Pos; Blood Gas Operator Identificat CAK; Blood Gas Sample Site Radial, left; Blood Gas Sample Type Arterial; Carboxyhemoglobin 1.5 %THgb (0.4-20.1); HCO3 ABG 26.7 mmol/L (22-26); Ionized Calcium Level - ABG 1.2 mmol/L (1.1-1.4); Methemoglobin 0.8 % (0.4-1.5); Oxygen Device NC; Oxygen Saturation ABG 96.2; Potassium Level - ABG 4.4 mmol/L (3.5-5.0); Total Hemoglobin 9.8 g/dL (14-18)
[2021-03-31] MEDS: ondansetron 2 mg/ML SDV 2 mL 4 MG IVP (07:24)
[2021-03-31 07:26] LABS: Slide Review Slide Review Perform
[2021-03-31 07:34] LABS: Absolute Eosinophils 0.1 10^3/cmm (0.0-0.7); Absolute Segmented Neutrophil 0.8 10/cmm (1.6-7.1); Band Neutrophils Absolute 1.6 10^3/cmm (0.0-1.2); Eosinophils 6 %; Lymphocytes 9 %; Monocytes Absolute 0.1 10^3/cmm (0.1-0.6); Segmented Neutrophils 25 %; Total Cells Counted 100 (0-100)
[2021-03-31 07:35] LABS: Absolute Neutrophil 2.3 10^3/cmm (1.4-6.5); Anisocytosis 2+; Lymphocytes Absolute 0.3 10^3/cmm (1.2-3.4); Platelet Estimate Decreased (Normal); Poikilocytosis 2+; Schistocytes Trace
[2021-03-31 07:40] LABS: Influenza A by IFA Negative (Negative); Influenza B by IFA Negative (Negative); SARS Covid-2 Antigen Negative (Negative)
[2021-03-31 08:13] LABS: Add Urine Microscopic? NO; Charge for UA Resulting for Rev
[2021-03-31 08:24] LABS: Bilirubin Urine Neg (Negative); Blood Urine Neg (Negative); Glucose Urine UA Norm (Normal); Ketones Urine Negative (Negative); Leukocyte Esterase Urine Negative (Negative); Nitrate Urine Negative (Negative); Protein Urine Neg (Negative); Urine Appearance Clear (CLEAR); Urine Color Yellow (Yellow); Urobilinogen Urine Norm (Negative); pH Urine 5 (5-7)
--- NOTE | 2021-03-31 08:37 | ECG_ITS ---
[facility] Test Date: 2021-03-31 Pat Name: Seth Cadet Department: Room: Gender: Male Regulatory Scientist: : 1945 Requested By: Paulo Fam Order Number: [id number] Rajwinder MD: Rigo Guy M.D. Measurements Intervals [place] Rate: 80 P: 35 SC: 159 QRS: -51 QRSD: 129 T: 8 QT: 396 QTc: 458 Interpretive Statements SINUS RHYTHM RIGHT BUNDLE BRANCH BLOCK [120+ ms QRS DURATION, UPRIGHT V1, 40+ ms S IN I/aVL/V4/V5/V6] LEFT ANTERIOR FASCICULAR BLOCK [QRS AXIS <= -45, QR IN I, RS IN II] MINIMAL VOLTAGE CRITERIA FOR LVH, CONSIDER NORMAL VARIANT [MEETS CRITERIA IN ONE OF: R(aVL), S(V1), R(V5), R(V5/V6)+S(V1)] POSSIBLE SEPTAL MYOCARDIAL INFARCTION [30 ms Q WAVE IN V1/V2], PROBABLY OLD Compared to ECG 01/20/2018 16:33:07 Left anterior fascicular block now present Left-axis deviation no longer present Myocardial infarct finding still present Electronically Signed On 03-31-2021 20:11:04 CDT by Rigo Guy M.D. [id number]
[2021-03-31 08:39] LABS: Troponin 5 2HR 16.08 ng/L (0-15)
[2021-03-31 08:51] LABS: Troponin 5 2HR Delta -2.92 ABS# (0-10)
--- NOTE | 2021-03-31 09:37 | CT_ITS ---
WS: [id number] CT CHEST ANGIOGRAPHY WITH REFORMATS HISTORY: hypoxia TECHNIQUE: Contiguous axial images are obtained through the chest during arterial injection of intrav enous contrast. Images are reconstructed to evaluate the pulmonary arteries. MIP imaging also reviewe d. All CT scans at [facility] use at least one of these dose optimization techniques: aut omated exposure control; mA and/or kV adjustment per patient size (includes targeted exams where dose is matched to clinical indication); or iterative reconstruction. CONTRAST: Visipaque 320; 95 mL IV. DLP: 590.82 mGy.cm COMPARISON: 01/20/2018 Very good opacification of the pulmonary arteries. No pulmonary embolism. Mild ectasia thoracic aorta . There is mild intimal thickening and a few calcified plaques within the aorta. No aneurysm or disse ction. Mild enlargement of the heart. No effusion. Lungs are hyperinflated with changes of emphysema. Bilateral multi lobar areas of tree-in-bud opacifi cation. These are most significant in the lower lobes. There is also involvement of the upper lobes a nd RIGHT middle lobe. No pleural effusion. Prominent mediastinal and hilar lymphoid tissue. RIGHT par atracheal lymph node measures 11 mm. Bilateral hilar adenopathy with the largest lymph node measuring 10 mm. No hiatal hernia. Scattered hypodensities within the liver were also seen on 01/20/2018. No adrenal mass. Increase in thoracic kyphosis. Mild anterior compression fractures involving T2, T3 and T4. CT/CT angio chest PE protcl [id number] IMPRESSION: 1. No pulmonary embolism. 2. Bilateral multi lobar tree-in-bud opacifications. Most often seen with endo bronchial pneumonia. 3. Reactive lymphadenopathy. 4. Chronic emphysema.
[2021-03-31] MEDS: iodixanol 320 mg/mL 100mL Btl IV (10:04)
[2021-03-31] MEDS: cefepime 2,000 MG in sodium chloride 0.9% (plus) 50 ML 100 MG IV ×2 (10:08→21:20)
[2021-03-31 10:13] LABS: Lactate Dehydrogenase 112 U/L (135-225)
[2021-03-31 10:24] LABS: LAB Peripheral Smear Sent for Review
--- NOTE | 2021-03-31 11:19 | PM.HP ---
Providers/Chief Complaint Primary Care Provider: Augusto Gu DO Chief Complaint: chest pain History of Present Illness Seth Cadet is a 75 year old male who presents to the emergency department with complaints of cough, productive at times as well as shortness of breath and subjective fever for 3 weeks. He reports he is not on any oxygen chronically. 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 He did receive antibiotics at that time. He denies any difficulty swallowing, or vomiting. He denies any chest discomfort to me although this was noted in the HPI done by the emergency department physician. Review of Systems General: Reports: 10 or more systems reviewed and unremarkable except in HPI and below Const: Reports: fever(s), chills and fatigue Eyes: Denies: change in vision ENMT: Reports: hoarseness and mouth pain (History of aphthous ulcer left side of tongue); Denies: throat pain Card: Reports: chest pain Resp: Reports: dyspnea and productive cough GI: Denies: abdominal pain, nausea, vomiting, hematochezia or melena : Reports: urinary frequency; Denies: flank pain Musc: Denies: neck pain Skin/Breast: Denies: rash Neuro: Denies: headache(s) Psych: Denies: anxiety or depression Endo: Denies: polyuria Godwin/Lymph: Denies: easy bruising All/Imm: Denies: urticaria Medications/Allergies Home Medications Medication Instructions Recorded Confirmed Last Taken Type Probiotic 1 cap PO DAILY #0 03/04/20 03/31/21 03/30/21 History acetaminophen [Tylenol Extra 1,000 mg PO Q8H PRN 03/04/20 03/31/21 03/15/20 History Strength] cetirizine 10 mg PO DAILY 03/04/20 03/31/21 03/30/21 History cholecalciferol (vitamin D3) 1 cap PO DAILY #0 03/04/20 03/31/21 03/30/21 History [Vitamin D3] multivitamin [Multiple Vitamins] 1 tab PO DAILY 03/04/20 03/31/21 03/30/21 History omeprazole 20 mg PO DAILY PRN 03/04/20 03/31/21 03/15/20 History potassium gluconate 595 mg PO DAILY 03/04/20 03/31/21 03/30/21 History tamsulosin 0.8 mg PO BEDTIME 03/04/20 03/31/21 03/30/21 History bee pollen 550 mg capsule 550 mg PO DAILY cap 03/05/20 03/31/21 03/30/21 History finasteride 5 mg tablet 5 mg PO DAILY #90 tab 06/03/20 03/31/21 03/30/21 Rx fluticasone propionate 2 spray INTRANASAL DAILY 03/24/21 03/31/21 03/23/21 History triamcinolone acetonide 1 applic TOPICAL DAILY 03/31/21 03/31/21 Unknown History Allergies Allergy/AdvReac Type Severity Reaction Status Date / Time aspirin Allergy Unknown Verified 03/31/21 06:36 hydromorphone [From Dilaudid] Allergy ADR-Dizzine Verified 03/31/21 06:36 ss Penicillins Allergy ADR-Dizzine Verified 03/31/21 06:36 ss nausea medicine Allergy ADR-Dizzine Uncoded 03/31/21 06:36 ss PFSH Acute PFSH: Medical History (Updated 03/31/21 @ 11:31 by Surya Martínez MD) BPH loc w urin obs/LUTS Bronchitis DJD (degenerative joint disease) GERD (gastroesophageal reflux disease) History of hyperlipidemia History of hypertension Incomplete bladder emptying Left flank pain Non-Hodgkins lymphoma Diagnosed 2006, B-cell. Stem cell transplant 2008 Renal calculi Right distal ureteral calculus Family History Father , at age 54 Diabetes Heart attack Mother Hypertension Social History Smoking and tobacco status: former smoker Alcohol intake: never Marital status: Current occupational status: employed History of recent travel: No Supplemental PFSH Information: Surgical history significant for past history of port placement, and then removal. Vitals/I&O/Wt Last Vital Signs Temp 101.5 F H 03/31/21 06:30 Pulse 81 03/31/21 10:00 Resp 12 03/31/21 10:00 BP 106/70 03/31/21 10:00 Pulse Ox 95 03/31/21 10:00 Weight last 48 hrs Weight 83.915 kg Physical Exam Narrative: EXAM NARRATIVE: General exam is a white male, with rather frequent cough. Febrile in the emergency department with temperature of 101.5 ?F. HEENT: Pupils equally round. Oropharynx is clear Neck is supple no lymphadenopathy or thyromegaly Cardiovascular regular rate and rhythm without murmur Lungs diminished breath sounds bilaterally but no wheezes or crackles Abdomen is soft, positive bowel sounds. No obvious organomegaly exam is deferred Extremities no cyanosis clubbing or edema. Data : 03/31/21 06:00 03/31/21 06:00 Micro: Microbiology 03/31/21 06:50 Blood Culture - Preliminary Blood SPECIMEN COLLECTED 03/31/21 06:40 Blood Culture - Preliminary Blood SPECIMEN COLLECTED Other data: CTA demonstrates bibasilar pneumonia, no pulmonary embolism EKG demonstrates sinus rhythm, left axis deviation, right bundle branch block Recent abdominal pelvic CT done earlier this month demonstrated bilateral nephrolithiasis without obstructive uropathy ANC is 2300. Peripheral smear to being read by oncology. pH 7.47, PCO2 37, PO2 74 LFTs normal Troponin XIX with repeat at 16 at 120 minutes Albumin 3.8 Urinalysis negative Rapid Covid negative, influenza negative, PCR pending A&P Assessment and plan (1) Pneumonia: Concern of immunocompromise state with his past history of non-Hodgkin's lymphoma, pancytopenia, history of stem cell transplant in the distant past. Note that his ANC is greater than 500. Start cefepime, vancomycin Check MRSA PCR Sputum culture Await Covid PCR Status: Acute (2) Acute respiratory failure with hypoxia: Oxygen as needed Combivent metered-dose inhaler as needed Status: Acute (3) Pancytopenia: Oncology is going to review his peripheral smear. They have been working this up in clinic. No overt leukemia by Dr. Fallon reviewing the smear. This will be followed up in clinic. Status: Acute (4) Non-Hodgkins lymphoma: Past history of non-Hodgkin's lymphoma diagnosed in 2006 with history of stem cell transplant in 2008. No current evidence of recurrence. Status: Acute (5) BPH loc w urin obs/LUTS: Continue current meds Status: Acute (6) GERD (gastroesophageal reflux disease): Continue proton pump inhibitor Status: Acute Additional A&P Information Full code Lovenox for DVT prophylaxis Attestations Medical Necessity Statement*: Will require greater than 2 midnight stay for evaluation and treatment of pneumonia. Time Spent in Patient Care: Greater than 35 minutes Coding Level of Care Code Acute Lead Data Entry Operator for [facility] Fwd Diagnoses Pneumonia J18.9 Acute respiratory failure with hypoxia J96.01 Pancytopenia D61.818 Non-Hodgkins lymphoma C85.90 BPH loc w urin obs/LUTS N40.1 GERD (gastroesophageal reflux disease) K21.9
--- NOTE | 2021-03-31 11:32 | PC.NURSE ---
ok to take home prostate medication per MD. no acute distress noted at this time.
[2021-03-31 12:32] LABS: Troponin 5 6HR 14.19 ng/L (0-15)
[2021-03-31 12:41] LABS: Troponin 5 6HR Delta -4.81 ng/L (0-12)
[2021-03-31 12:45] LABS: Thyroid Stimulating Hormone 3.67 uIU/mL (0.27-4.20)
[2021-03-31] MEDS: acetaminophen 325 mg Tablet 650 MG PO (12:51)
[2021-03-31] MEDS: enoxaparin 30 mg/0.3 mL Syringe SUBCUT (12:52)
[2021-03-31] MEDS: lidocaine 2% viscous 1.667 ML, diphenhydrAMINE oral liq 4.165 MG, aluminum-mag hydrox-s... MUCOUS MEM ×2 (14:05→21:15)
[2021-03-31] MEDS: vancomycin 1,250 MG/250 ML PIGGYBACK 200 MG IV (14:06)
[2021-03-31 14:38] LABS: Coronavirus Test Green County Not Detected
[2021-03-31] MEDS: tamsulosin 0.4 mg Capsule 0.8 MG PO (21:16)
[2021-04-01] VITALS (12 sets, daily range): BP systolic 103–121; BP diastolic 56–74; PULSE 69–88; RESP 16–18; TEMP 36.4–38.4; O2SAT 87–96
[2021-04-01] MEDS: HYDROcodone-acetaminophen 5-325 mg Tablet 1 TAB PO ×4 (00:01→18:13)
[2021-04-01 05:45] LABS: Basophils % 0.7 %; Eosinophils # 0.1 10^3/uL (0.0-0.8); Eosinophils % 4.6 %; Hematocrit 31.8 % (42.0-52.0); Hemoglobin 9.5 g/dL (11.7-16.6); Lymphocytes # 0.6 10^3/uL (0.8-4.8); Lymphocytes % 19.3 %; Mean Corpuscular HGB Conc 29.9 g/dL (30.0-36.0); Mean Corpuscular Hemoglobin 23.8 pg (28.0-34.0); Mean Corpuscular Volume 79.5 fL (80-94); Monocytes # 0.2 10^3/uL (0.2-0.9); Monocytes % 7.7 %; Neutrophils # 1.66 10^3/uL (1.8-7.7); Neutrophils % 58.2 %; Nucleated Red Blood Cells % 0 %; Platelet Count 103 10^3/cmm (130-400); Red Cell Distribution Width 28.3 % (12.1-15.1); White Blood Count 2.9 10^3/uL (4.0-10.0)
[2021-04-01 06:00] LABS: Alanine Aminotransferase 26 U/L (0-41); Albumin Level 3.3 g/dL (3.5-5.2); Alkaline Phosphatase 79 IU/L (40-130); Anion Gap 12.6 (5-19); Aspartate Amino Transferase 28 U/L (0-40); Blood Urea Nitrogen 25 mg/dL (8-23); Calcium 8.9 mg/dL (8.5-10.5); Carbon Dioxide 27 mmol/L (22-29); Chloride 100 mmol/L (98-107); Globulin 2.7 g/dL (1.3-4.6); Glucose 108 mg/dL (65-115); Osmolality Calculated 285 mOsm/kg (285-295); Potassium 4.6 mmol/L (3.5-5.1); Sodium 135 mmol/L (136-145); Total Bilirubin 0.5 mg/dL (0.15-1.2)
[2021-04-01 06:44] LABS: Slide Review Slide Review Perform
[2021-04-01] MEDS: cetirizine 10 mg Tablet PO (08:43)
[2021-04-01] MEDS: finasteride 5 mg Tablet PO (08:43)
[2021-04-01] MEDS: fluticasone nasal spray 16gm Btl 2 SPRAY INTRANASAL (08:47)
--- NOTE | 2021-04-01 10:14 | P.PN_ITS ---
Subjective Subjective: Interval history: Seth reports he feels perhaps a little bit better. Still congested. Coughing a little bit less up. No vomiting. Voice is less hoarse. Medications: Reviewed: Yes Vitals/I&O/Wt Last Vital Signs Temp 97.6 F 04/01/21 08:00 Pulse 82 04/01/21 08:33 Resp 16 04/01/21 08:33 BP 121/74 04/01/21 08:00 Pulse Ox 91 04/01/21 08:33 03/31/21 04/01/21 04/01/21 22:59 06:59 14:59 Intake Total 300 / 350 360 / 360 Output Total 300 / 300 400 / 700 Balance 0 / 50 -400 / -350 360 / 360 Weight last 48 hrs Weight 83.915 kg Physical Exam Narrative: EXAM NARRATIVE: General exam is a white male no distress. T-max 101.2 HEENT: Pupils equally round. Oropharynx with ulcer left side of tongue Neck is supple no lymphadenopathy or thyromegaly Cardiovascular regular rate and rhythm without murmur Lungs diminished breath sounds bilaterally but no wheezes or crackles Abdomen is soft, positive bowel sounds. No obvious organomegaly Extremities no cyanosis clubbing or edema. Data : 04/01/21 05:11 04/01/21 05:11 Micro: Microbiology 03/31/21 06:50 Blood Culture - Preliminary Blood NEGATIVE TO DATE 03/31/21 06:40 Blood Culture - Preliminary Blood NEGATIVE TO DATE 03/31/21 12:41 MRSA Culture - Final Nose A&P Assessment and plan (1) Pneumonia: Concern of immunocompromise state with his past history of non-Hodgkin's lymphoma, pancytopenia, history of stem cell transplant in the distant past. Note that his ANC is greater than 500. Continue cefepime. Discontinue vancomycin as P CR MRSA negative. Await sputum culture Covid PCR negative Status: Acute (2) Acute respiratory failure with hypoxia: Oxygen as needed Change to DuoNeb as needed Status: Acute (3) Pancytopenia: Oncology is going to review his peripheral smear. They have been working this up in clinic. No overt leukemia by Dr. Fallon reviewing the smear. This will be followed up in clinic. Status: Acute (4) Non-Hodgkins lymphoma: Past history of non-Hodgkin's lymphoma diagnosed in 2006 with history of stem cell transplant in 2008. No current evidence of recurrence. Status: Acute (5) BPH loc w urin obs/LUTS: Continue current meds Status: Acute (6) GERD (gastroesophageal reflux disease): Continue proton pump inhibitor Status: Acute Additional A&P Information Full code Lovenox for DVT prophylaxis Attestations Medical Necessity Statement*: Needs continued hospitalization for IV antibiotics secondary to pneumonia, community-acquired Coding Level of Care Code Acute [employer] Machine Tender for [facility] Diagnoses Pneumonia J18.9 Acute respiratory failure with hypoxia J96.01 Pancytopenia D61.818 Non-Hodgkins lymphoma C85.90 BPH loc w urin obs/LUTS N40.1 GERD (gastroesophageal reflux disease) K21.9
[2021-04-01] MEDS: cefepime 2,000 MG in sodium chloride 0.9% (plus) 50 ML 100 MG IV ×2 (10:51→21:40)
--- NOTE | 2021-04-01 11:17 | PC.CHAP ---
Pastoral Care Encounter/Spiritual Assessment Type of Contact [] Declined pin machine tender visit [] Patient/Family/Request visit [] Outpatient visit [] Follow-up visit [] Physician referral [] Code/Alert [x] Routine visit [] Staff referral [] Actively dying [] Patient sleeping [] Family support [] [] Out of room [] Palliative care [] [x] Receiving care in room [] Pre-surgical visit [] Trauma [x] Long length of stay [] ICU visit [] Other: Relational/Emotional Strength [] Patient feels connected with others/family/visitors/staff [x] Distress [] Loneliness/isolation [] Abandonment Spirituality of Patient [x] Person of Sarah [] Attends [facility] of their Sarah [x] Believes in Prayer [] Reads Bible or Islam materials [] There are Spiritual issues to be addressed Dining Manager Interventions [x] Prayer [x] Active listening [x] Non-anxious presence [x] Spiritual/emotional support [] Crisis/trauma care [x] Spiritual counseling [] Bereavement support [] Provided bereavement packet [] Provided Bible/devotional materials [] Provided toy/stuffed animal, coloring book to patient or family member [] Provided Communion [] Anointing/[place] [] Salvation [x] Completed spiritual assessment [] Other: Impact on Illness or Injury [] Angry [x] Fearful [] Anxious [] Often cries [] Exhaustion [] Unable to work [] Unable to attend confucianism [] Unable to walk/stand [] Unable to read [] Unable to drive [] Unable to eat/drink [] Unable to sleep [] Unable to be with family [] Patient intubated [] Other: Summary chest pains has blood clots in legs thening blood and possable numonia has a good attitude wants to be hear until he can get better Time spent with patient 10 mins
[2021-04-01] MEDS: enoxaparin 30 mg/0.3 mL Syringe SUBCUT (12:19)
[2021-04-01] MEDS: lidocaine 2% viscous 15 mL UDC TOPICAL ×2 (12:20→17:08)
[2021-04-01] MEDS: tamsulosin 0.4 mg Capsule 0.8 MG PO (21:40)
[2021-04-02] VITALS (13 sets, daily range): BP systolic 100–131; BP diastolic 55–71; PULSE 62–94; RESP 16–18; TEMP 36.4–37.2; O2SAT 91–96
[2021-04-02] MEDS: HYDROcodone-acetaminophen 5-325 mg Tablet 1 TAB PO ×3 (03:20→19:35)
[2021-04-02 06:14] LABS: Alanine Aminotransferase 25 U/L (0-41); Albumin Level 2.9 g/dL (3.5-5.2); Alkaline Phosphatase 68 IU/L (40-130); Anion Gap 12.1 (5-19); Aspartate Amino Transferase 25 U/L (0-40); Blood Urea Nitrogen 26 mg/dL (8-23); Calcium 8.3 mg/dL (8.5-10.5); Carbon Dioxide 26 mmol/L (22-29); Chloride 102 mmol/L (98-107); Globulin 2.3 g/dL (1.3-4.6); Glucose 102 mg/dL (65-115); Osmolality Calculated 287 mOsm/kg (285-295); Potassium 4.1 mmol/L (3.5-5.1); Sodium 136 mmol/L (136-145); Total Bilirubin 0.4 mg/dL (0.15-1.2); Total Protein 5.2 g/dL (6.6-8.7)
[2021-04-02 06:27] LABS: Basophils % 0.7 %; Eosinophils # 0.2 10^3/uL (0.0-0.8); Eosinophils % 6.5 %; Hematocrit 28.3 % (42.0-52.0); Hemoglobin 8.6 g/dL (11.7-16.6); Lymphocytes # 0.7 10^3/uL (0.8-4.8); Lymphocytes % 23.6 %; Mean Corpuscular HGB Conc 30.4 g/dL (30.0-36.0); Mean Corpuscular Hemoglobin 23.2 pg (28.0-34.0); Mean Corpuscular Volume 76.3 fL (80-94); Monocytes # 0.2 10^3/uL (0.2-0.9); Monocytes % 6.2 %; Neutrophils # 1.56 10^3/uL (1.8-7.7); Neutrophils % 56.5 %; Nucleated Red Blood Cells % 0 %; Platelet Count 62 10^3/cmm (130-400); Red Blood Count 3.71 10^6/uL (4.1-5.3); Red Cell Distribution Width 28.1 % (12.1-15.1); White Blood Count 2.8 10^3/uL (4.0-10.0)
[2021-04-02 06:32] LABS: Slide Review Slide Review Perform
[2021-04-02] MEDS: fluticasone nasal spray 16gm Btl 2 SPRAY INTRANASAL (08:05)
[2021-04-02] MEDS: cetirizine 10 mg Tablet PO (08:08)
[2021-04-02] MEDS: finasteride 5 mg Tablet PO (08:08)
[2021-04-02] MEDS: famotidine 20 mg Tablet PO ×2 (08:09→17:03)
[2021-04-02] MEDS: lidocaine 2% viscous 15 mL UDC TOPICAL ×3 (08:10→17:05)
[2021-04-02] MEDS: ipratropium-albuterol 3 mL Neb INHALATION ×2 (09:29→15:55)
[2021-04-02] MEDS: predniSONE 20 mg Tablet 40 MG PO (10:32)
[2021-04-02] MEDS: cefepime 2,000 MG in sodium chloride 0.9% (plus) 50 ML 100 MG IV ×2 (10:33→22:49)
--- NOTE | 2021-04-02 11:35 | P.PN_ITS ---
Subjective Subjective: Interval history: Seth reports he feels a little bit better today as far as his breathing. He is very tired. He states his tongue on the lateral side is still sore and he cannot drink as much. He is afraid he is getting dehydrated. Medications: Reviewed: Yes Vitals/I&O/Wt Last Vital Signs Temp 99.0 F 04/02/21 11:05 Pulse 83 04/02/21 11:05 Resp 17 04/02/21 11:05 BP 114/66 04/02/21 11:05 Pulse Ox 91 04/02/21 11:05 04/01/21 04/02/21 04/02/21 22:59 06:59 14:59 Intake Total 440 / 850 290 / 290 Output Total 250 / 600 200 / 200 Balance 190 / 250 90 / 90 Physical Exam Narrative: EXAM NARRATIVE: General exam is a white male no distress. Afebrile the last 24 hours HEENT: Pupils equally round. Oropharynx with ulcer left side of tongue Neck is supple no lymphadenopathy or thyromegaly Cardiovascular regular rate and rhythm without murmur Lungs diminished breath sounds bilaterally but no wheezes or crackles Abdomen is soft, positive bowel sounds. No obvious organomegaly Extremities no cyanosis clubbing or edema. Data : 04/02/21 05:02 04/02/21 05:02 Micro: Microbiology 03/31/21 06:50 Blood Culture - Preliminary Blood NEGATIVE TO DATE 03/31/21 06:40 Blood Culture - Preliminary Blood NEGATIVE TO DATE A&P Assessment and plan (1) Pneumonia: Concern of immunocompromise state with his past history of non-Hodgkin's lymphoma, pancytopenia, history of stem cell transplant in the distant past. Note that his ANC is greater than 500. Continue cefepime. 04/01 as P CR MRSA negative. Await sputum culture Now afebrile greater than 24 hours Status: Acute (2) Acute respiratory failure with hypoxia: Oxygen as needed. Try to wean off today Change to DuoNeb as needed Status: Acute (3) Pancytopenia: Oncology is going to review his peripheral smear. They have been working this up in clinic. No overt leukemia by Dr. Fallon reviewing the smear. This will be followed up in clinic. Platelet count slightly worse today. Discontinue Lovenox. Status: Acute (4) Non-Hodgkins lymphoma: Past history of non-Hodgkin's lymphoma diagnosed in 2006 with history of stem cell transplant in 2008. No current evidence of recurrence. Status: Acute (5) BPH loc w urin obs/LUTS: Continue current meds Status: Acute (6) GERD (gastroesophageal reflux disease): Continue proton pump inhibitor Status: Acute Additional A&P Information Aphthous ulcer. On acyclovir. Prednisone will be initiated. I discussed with oncology briefly to make sure this would not influence any bone marrow biopsy that may be done in the near future. Full code SCDs for DVT prophylaxis Attestations Medical Necessity Statement*: Needs continued hospitalization for IV antibiotics for pneumonia. Coding Level of Care Code Acute Experimental Aircraft Mechanic for [facility] Fwd Diagnoses Pneumonia J18.9 Acute respiratory failure with hypoxia J96.01 Pancytopenia D61.818 Non-Hodgkins lymphoma C85.90 BPH loc w urin obs/LUTS N40.1 GERD (gastroesophageal reflux disease) K21.9
[2021-04-02] MEDS: sodium chloride 0.9% 1,000 ML 75 ML IV (12:12)
[2021-04-02] MEDS: acyclovir 400 mg Tablet PO ×2 (15:41→20:40)
[2021-04-02] MEDS: tamsulosin 0.4 mg Capsule 0.8 MG PO (20:40)
[2021-04-03] VITALS (13 sets, daily range): BP systolic 117–138; BP diastolic 63–84; PULSE 60–94; RESP 16–18; TEMP 36.1–36.8; O2SAT 86–97
[2021-04-03] MEDS: sodium chloride 0.9% 1,000 ML 75 ML IV (00:51)
[2021-04-03] MEDS: HYDROcodone-acetaminophen 5-325 mg Tablet 1 TAB PO ×2 (05:19→18:37)
--- NOTE | 2021-04-03 05:46 | PC.NURSE ---
SHIFT SUMMARY Has rested well tonight. Has been afebrile. Voice is raspy and says has been that way for awhile. Has a sore on tongue and says hurts when he eats. Also c/o sore throat and has scabbed sore to right upper lip. Received po Hydrocodone X2 this shift. Reports poor appetite. Also says remains tired and weak although he thinks is improved some. O2 had been removed at start of shift but pt requested to wear it through night. Says he feels better with it on. IV infusing without difficulty.
[2021-04-03] MEDS: ipratropium-albuterol 3 mL Neb INHALATION ×2 (08:41→15:53)
[2021-04-03] MEDS: acyclovir 400 mg Tablet PO ×3 (09:07→20:58)
[2021-04-03] MEDS: predniSONE 20 mg Tablet 40 MG PO (09:08)
[2021-04-03] MEDS: cetirizine 10 mg Tablet PO (09:08)
[2021-04-03] MEDS: finasteride 5 mg Tablet PO (09:08)
[2021-04-03] MEDS: famotidine 20 mg Tablet PO ×2 (09:08→17:17)
[2021-04-03] MEDS: fluticasone nasal spray 16gm Btl 2 SPRAY INTRANASAL (09:09)
[2021-04-03 09:24] LABS: Basophils % 0.8 %; Eosinophils # 0.1 10^3/uL (0.0-0.8); Eosinophils % 3.2 %; Hematocrit 31.9 % (42.0-52.0); Hemoglobin 9.3 g/dL (11.7-16.6); Lymphocytes # 0.9 10^3/uL (0.8-4.8); Lymphocytes % 37.3 %; Mean Corpuscular HGB Conc 29.2 g/dL (30.0-36.0); Mean Corpuscular Hemoglobin 23.2 pg (28.0-34.0); Mean Corpuscular Volume 79.6 fL (80-94); Monocytes # 0.2 10^3/uL (0.2-0.9); Monocytes % 8.3 %; Neutrophils # 1.05 10^3/uL (1.8-7.7); Neutrophils % 41.7 %; Nucleated Red Blood Cells % 0 %; Platelet Count 89 10^3/cmm (130-400); Red Blood Count 4.01 10^6/uL (4.1-5.3); Red Cell Distribution Width 28.3 % (12.1-15.1); White Blood Count 2.5 10^3/uL (4.0-10.0)
[2021-04-03 09:44] LABS: Alanine Aminotransferase 34 U/L (0-41); Alkaline Phosphatase 75 IU/L (40-130); Aspartate Amino Transferase 33 U/L (0-40); Blood Urea Nitrogen 23 mg/dL (8-23); Calcium 9.1 mg/dL (8.5-10.5); Carbon Dioxide 24 mmol/L (22-29); Chloride 104 mmol/L (98-107); Globulin 2.6 g/dL (1.3-4.6); Glucose 109 mg/dL (65-115); Osmolality Calculated 288 mOsm/kg (285-295); Sodium 137 mmol/L (136-145); Total Bilirubin 0.3 mg/dL (0.15-1.2); Total Protein 5.6 g/dL (6.6-8.7)
[2021-04-03 09:47] LABS: Anion Gap 13.4 (5-19); Potassium 4.4 mmol/L (3.5-5.1)
[2021-04-03 10:18] LABS: Add RBC Morph Yes
[2021-04-03 10:19] LABS: Slide Review Slide Review Perform
[2021-04-03 10:22] LABS: Giant Platelets 1+; Poikilocytosis 2+
[2021-04-03 10:23] LABS: Burr Cells 1+; Ovalocytes Trace; Schistocytes Trace
[2021-04-03 10:26] LABS: Anisocytosis 2+
[2021-04-03 10:28] LABS: RBC Morph Comp Yes
[2021-04-03] MEDS: cefepime 2,000 MG in sodium chloride 0.9% (plus) 50 ML 100 MG IV ×2 (10:53→21:00)
--- NOTE | 2021-04-03 11:51 | PC.SOCIAL ---
IMM Update Pg.2 of IMM updated and reviewed with patient and his at bedside who verbalized understanding. Copy provided.
--- NOTE | 2021-04-03 19:32 | P.PN_ITS ---
Subjective Subjective: Interval history: Patient is complaining of cough as well as SOB. Medications: Reviewed: Yes Vitals/I&O/Wt Last Vital Signs Temp 98.3 F 04/03/21 16:00 Pulse 93 04/03/21 16:00 Resp 18 04/03/21 16:00 BP 138/84 04/03/21 16:00 Pulse Ox 92 04/03/21 16:00 04/03/21 04/03/21 04/03/21 06:59 14:59 22:59 Intake Total 1148.75 / 1918.75 1600 / 1600 360 / 1960 Output Total 400 / 800 450 / 450 Balance 748.75 / 1118.75 1150 / 1150 360 / 1510 Physical Exam Const: COMMON NORMALS: patient oriented x3 HENMT: COMMON NORMALS: normocephalic and atraumatic HEAD & SCALP: normocephalic and atraumatic OTHER: ulcer on left side of tongue Resp: COMMON NORMALS: clear to auscultation bilaterally AUSCULTATION: clear to auscultation bilaterally Cardio: COMMON NORMALS: regular rate, regular rhythm, S1 normal heart sound p resent, S2 normal heart sound present, No gallops present (Cardio), No murmurs present (Cardio), No rub (Cardio) and Peripheral pulses 2+ throughout RATE: regular rate RHYTHM: regular rhythm HEART SOUNDS: S1 normal heart sound present and S2 normal heart sound present PERIPHERAL PULSES: Peripheral pulses 2+ throughout GI: COMMON NORMALS: Normal to inspection, nondistended, normoactive bowel sounds present, Soft to palpation, non-tender, No hepatosplenomegaly present and no masses AUSCULTATION: Yes normoactive bowel sounds PALPATION: Yes Soft to palpation and Yes No hepatosplenomegaly present RECTAL EXAM: Yes deferred Extremity: COMMON NORMALS: no clubbing, cyanosis or edema and no pedal edema Neuro: COMMON NORMALS: patient oriented x3 Data : 04/04/21 04:28 04/04/21 04:28 Micro: Microbiology 04/02/21 10:43 Gram Stain - Final Sputum - Expectorated Sputum Sputum Culture - Preliminary A&P Assessment and plan (1) Pneumonia: Concern of immunocompromise state with his past history of non-Hodgkin's lymphoma, pancytopenia, history of stem cell transplant in the distant past. Note that his ANC is greater than 500. Continue cefepime. 04/01 as P CR MRSA negative. Await sputum culture Now afebrile greater than 24 hours Status: Acute (2) Acute respiratory failure with hypoxia: Oxygen as needed. Try to wean off today Change to DuoNeb as needed Status: Acute (3) Pancytopenia: Oncology is going to review his peripheral smear. They have been working this up in clinic. No overt leukemia by Dr. Fallon reviewing the smear. This will be followed up in clinic. Platelet count slightly worse today. Discontinue Lovenox. Status: Acute (4) Non-Hodgkins lymphoma: Past history of non-Hodgkin's lymphoma diagnosed in 2006 with history of stem cell transplant in 2008. No current evidence of recurrence. Status: Acute (5) BPH loc w urin obs/LUTS: Continue current meds Status: Acute (6) GERD (gastroesophageal reflux disease): Continue proton pump inhibitor Status: Acute Additional A&P Information Aphthous ulcer. On acyclovir. Prednisone will be initiated. I discussed with oncology briefly to make sure this would not influence any bone marrow biopsy that may be done in the near future. Full code SCDs for DVT prophylaxis Attestations Medical Necessity Statement*: Patient needs to be in hospital for the management of pneumonia,pancytopenia. Coding Level of Care Code Acute Head Filter Press Tender for [facility] Fwd Exam Detailed Diagnoses Pneumonia J18.9 Acute respiratory failure with hypoxia J96.01 Pancytopenia D61.818 Non-Hodgkins lymphoma C85.90 BPH loc w urin obs/LUTS N40.1 GERD (gastroesophageal reflux disease) K21.9
[2021-04-03] MEDS: tamsulosin 0.4 mg Capsule 0.8 MG PO (20:58)
[2021-04-04] VITALS (8 sets, daily range): BP systolic 116–136; BP diastolic 66–74; PULSE 52–75; RESP 17–18; TEMP 36.5–36.7; O2SAT 94–98
[2021-04-04] MEDS: HYDROcodone-acetaminophen 5-325 mg Tablet 1 TAB PO ×2 (02:35→08:49)
[2021-04-04 06:03] LABS: Basophils % 0.6 %; Eosinophils # 0.1 10^3/uL (0.0-0.8); Hematocrit 27.9 % (42.0-52.0); Hemoglobin 8.2 g/dL (11.7-16.6); Lymphocytes # 1.2 10^3/uL (0.8-4.8); Mean Corpuscular HGB Conc 29.4 g/dL (30.0-36.0); Mean Corpuscular Hemoglobin 23.4 pg (28.0-34.0); Mean Corpuscular Volume 79.7 fL (80-94); Monocytes # 0.3 10^3/uL (0.2-0.9); Monocytes % 7.8 %; Neutrophils # 1.47 10^3/uL (1.8-7.7); Neutrophils % 42.3 %; Nucleated Red Blood Cells % 0 %; Platelet Count 75 10^3/cmm (130-400); Red Cell Distribution Width 28.2 % (12.1-15.1); White Blood Count 3.5 10^3/uL (4.0-10.0)
[2021-04-04 06:54] LABS: Anion Gap 16.6 (5-19); Blood Urea Nitrogen 26 mg/dL (8-23); Calcium 8.7 mg/dL (8.5-10.5); Carbon Dioxide 22 mmol/L (22-29); Chloride 107 mmol/L (98-107); Glucose 119 mg/dL (65-115); Osmolality Calculated 298 mOsm/kg (285-295); Potassium 4.6 mmol/L (3.5-5.1); Sodium 141 mmol/L (136-145)
[2021-04-04 07:46] LABS: Slide Review Slide Review Perform
[2021-04-04] MEDS: acyclovir 400 mg Tablet PO (08:48)
[2021-04-04] MEDS: famotidine 20 mg Tablet PO (08:48)
[2021-04-04] MEDS: finasteride 5 mg Tablet PO (08:48)
[2021-04-04] MEDS: cetirizine 10 mg Tablet PO (08:48)
[2021-04-04] MEDS: predniSONE 20 mg Tablet 40 MG PO (08:48)
[2021-04-04] MEDS: fluticasone nasal spray 16gm Btl 2 SPRAY INTRANASAL (08:49)
[2021-04-04] MEDS: ipratropium-albuterol 3 mL Neb INHALATION (08:59)
--- NOTE | 2021-04-04 10:42 | PM.DCS ---
Discharge Providers Date of Admission: 03/31/21 10:13 Date of Discharge: April 04, 2021 Attending Provider at Admission: Surya Martínez MD Attending Provider at Discharge: Eddie Boss MD Primary Care Provider: Augusto Gu DO Diagnoses at Discharge Discharge Diagnosis (1) Pneumonia: (2) Acute respiratory failure with hypoxia: (3) Pancytopenia: (4) Non-Hodgkins lymphoma: Permanent problem details: Diagnosed 2006, B-cell. Stem cell transplant 2008 (5) BPH loc w urin obs/LUTS: (6) GERD (gastroesophageal reflux disease): Reason for Visit Reason for Visit: chest pain Hospital Course Hospital Course 75 year old male with PMH of Non-Hodgkins lymphoma Diagnosed 2006, B-cell. Stem cell transplant 2008, BPH loc w urin obs/LUTS Bronchitis, DJD (degenerative joint disease) , GERD (gastroesophageal reflux disease) , hyperlipidemia , hypertension who presented to the emergency department with complaints of cough, productive at times as well as shortness of breath and subjective fever for 3 weeks.He was admitted for the management of Pneumonia ,ac hypoxic r/f 2/2 to pna , as well as pancytoenia. He was kept on broad spectrum abxs ,cultures were negative ( blood culture and sputum culture ,MRSA PCR was negative ). Patient was also managed for apthous ulcer he was for which he was started on acyclovir as well as prednisone and was discharged on it for additional 7 days ( prednisone 20 mg po daily as well as acyclovir 400 mg TID ).Patient responded well to the above medical management and was discharged in stable condition.Home oxygen evaluation was done prior to discharge and patient did not qualify for home oxygen.He will continue to follow oncology as outpatient. Physical Exam Const: COMMON NORMALS: patient oriented x3 HENMT: COMMON NORMALS: normocephalic and atraumatic HEAD & SCALP: normocephalic and atraumatic OTHER: ulcer on left side of tongue Resp: COMMON NORMALS: clear to auscultation bilaterally AUSCULTATION: clear to auscultation bilaterally Cardio: COMMON NORMALS: regular rate, regular rhythm, S1 normal heart sound present, S2 normal heart sound present, No gallops present (Cardio), No murmurs present (Cardio), No rub (Cardio) and Peripheral pulses 2+ throughout RATE: regular rate RHYTHM: regular rhythm HEART SOUNDS: S1 normal heart sound present and S2 normal heart sound present PERIPHERAL PULSES: Peripheral pulses 2+ throughout GI: COMMON NORMALS: Normal to inspection, nondistended, normoactive bowel sounds present, Soft to palpation, non-tender, No hepatosplenomegaly present and no masses AUSCULTATION: Yes normoactive bowel sounds PALPATION: Yes Soft to palpation and Yes No hepatosplenomegaly present RECTAL EXAM: Yes deferred Extremity: COMMON NORMALS: no clubbing, cyanosis or edema and no pedal edema Neuro: COMMON NORMALS: patient oriented x3 Discharge Data Data Completed and Pending: Completed Studies During Hospitalization Category Date Time Status CT angio chest PE protcl [id number] Stat Cat Scan 03/31/21 09:37 Completed XR chest 1V gayle ble [id number] Stat Exams 03/31/21 06:37 Completed Pending at discharge Category Date Time Status Blood Culture Sta t Lab 03/31/21 06:50 Results Labs from last 24 hours 04/04/21 04/04/21 04:28 04:28 WBC 3.5 L RBC 3.50 L Hgb 8.2 L Hct 27.9 L MCV 79.7 L MCH 23.4 L MCHC 29.4 L RDW 28.2 H Plt Count 75 L MPV Not Reportable Neut % (Auto) 42.3 Lymph % (Auto) 34.0 Holmes % (Auto) 7.8 Eos % (Auto) 2.0 Baso % (Auto) 0.6 Neut # (Auto) 1.47 L Lymph # (Auto) 1.2 Holmes # (Auto) 0.3 Eos # (Auto) 0.1 Baso # (Auto) 0.0 Nucleated RBC % (a uto) 0 Nucleated RBCs # 0.0 Sodium 141 Potassium 4.6 Chloride 107 Carbon Dioxide 22 Anion Gap 16.6 BUN 26 H Creatinine 1.0 GFR Calculation Not Reportable Glucose 119 H Calculated Osmolal ity 298 H Calcium 8.7 Vitals: Last Vital Signs Temp 97.8 F 04/04/21 07:39 Pulse 75 04/04/21 09:06 Resp 18 04/04/21 09:02 BP 132/72 04/04/21 07:39 Pulse Ox 96 04/04/21 09:02 Discharge Plan Discharge Patient Disposition: Home Condition: Stable Prescriptions: New Robitussin Cough-Chest [place] DM 10-200 mg capsule 1 tab-cap PO Q8H PRN (Reason: cough) Qty: 14 RF: 0 Continued bee pollen 550 mg capsule 550 mg PO DAILY RF: 0 multivitamin [Multiple Vitamins] Tablet 1 tab PO DAILY RF: 0 cetirizine 10 mg tablet 10 mg PO BEDTIME RF: 0 tamsulosin 0.4 mg capsule 0.8 mg PO BEDTIME RF: 0 omeprazole 20 mg capsule,delayed release(DR/EC) 20 mg PO DAILY PRN (Reason: Acid Reflux) RF: 0 potassium gluconate 595 mg (99 mg) Tablet 595 mg PO BEDTIME RF: 0 Probiotic 3 billion cell Capsule 1 cap PO BEDTIME Qty: 0 RF: 0 No Action nystatin 100,000 unit/mL suspension 5 ml PO QID RF: 0 ondansetron HCl 4 mg tablet 4 - 8 mg PO Q4H PRN (Reason: Nausea And Vomiting) RF: 0 acyclovir 400 mg tablet 400 mg PO TID RF: 0 Tylenol Arthritis 650 mg Tablet Extended Release 1,300 mg PO PRN RF: 0 levofloxacin 500 mg tablet 500 mg PO DAILY RF: 0 Tylenol PM Extra Strength 25-500 mg Tablet 2 tab PO PRN RF: 0 morphine 15 mg tablet 15 mg PO Q4H PRN (Reason: Pain) RF: 0 Vitamin B-12 1 tab PO DAILY RF: 0 Vitamin D3 1 cap PO DAILY RF: 0 prednisone 20 mg tablet 20 mg PO DAILY RF: 0 finasteride 5 mg tablet 5 mg PO BEDTIME RF: 0 tramadol 50 mg Tablet 50 mg PO Q6H PRN (Reason: Pain, Moderate) RF: 0 Discharge Orders: Discharge Order (Routine); Ordered 04/04/21 Ordered By: Eddie Boss Referrals: Erik Fallon MD [Hospitalist] - 1 week (Please call Monday to schedule a follow up appointment.) Discharge Diet: Regular Discharge Activity: Resume usual activity Patient Instructions: Prednisone (By mouth), Acyclovir (By mouth), Levofloxacin (By mouth), Pneumonia (GEN), Opioid Safety, Pneumonia Stoplight Discharge Attestations Time Spent in Discharge Care*: less than 30 min Specific Discharge Activities: educating patient, educating and/or supporting family/caregiver, discussing with pcp/other providers, discussing with case management coordinator/social workers/dc planners, documenting/other paperwork and evaluating patient/reviewing data Status at Discharge: Cognitive status at discharge: cognitively intact, Behavioral status at discharge: cooperative, Functional status at discharge: independent ambulation Overall status at discharge: patient is back to baseline Quality Metrics Clinical Quality Measures During this hospital stay, did patient experience: None Coding Level of Care Code Acute Chg FW DC note Diagnoses Pneumonia J18.9 Acute respiratory failure with hypoxia J96.01 Pancytopenia D61.818 Non-Hodgkins lymphoma C85.90 BPH loc w urin obs/LUTS N40.1 GERD (gastroesophageal reflux disease) K21.9
[2021-04-04] MEDS: cefepime 2,000 MG in sodium chloride 0.9% (plus) 50 ML 1000 MG IV (11:30)
[2021-04-04] MEDS: guaiFENesin-dextromethorphan UDC 10 mL PO (11:38)
--- NOTE | 2021-04-04 13:31 | PC.NURSE ---
PT HAS DONE WELL FOR ME TODAY. PT HAS HAD SOME COMPLAINTS OF PAIN IN HIS BACK AND NECK. HAS BEEN TREATED WELL WITH HYDROCODONE. PT HAS BEEN UP WITH PHYSICAL THERAPY AND IS DOING GOOD AMBULATING. PT WILL DISCHARGE TODAY. HOME O2 EVAL ORDERED AND PT DID NOT REQUIRE OXYGEN. DISCHARGE PAPERWORK WAS GONE OVER WITH PT. ALL QUESTIONS ANSWERED. IV WAS REMOVED. CATHETER TIP INTACT. PT TOLERATED WELL. [facility] PT WAS SAFELY WHEELED OUT BY THIS NURSE AND DISCHARGED FROM THE HOSPITAL.
== END 2021-04-04 13:43 | disposition home or self-care (01) | DRG 193 ==
LOC: ER 11:25 → MEDSURG 11:28
PROVIDERS: Internal Medicine Medical Oncology; Admitting Provider Internal Medicine; Emergency Provider Family Medicine; PCP Emergency Medicine Emergency Medical Services; Visit Provider Internal Medicine
DX: J18.9 Pneumonia, unspecified organism (principal); J96.01 Acute respiratory failure with hypoxia; Z94.84 Stem cells transplant status; D61.818 Other pancytopenia; N40.1 Benign prostatic hyperplasia with lower urinary tract symptoms; R39.14 Feeling of incomplete bladder emptying; M19.90 Unspecified osteoarthritis, unspecified site; K21.9 Gastro-esophageal reflux disease without esophagitis; E78.5 Hyperlipidemia, unspecified; I10 Essential (primary) hypertension; Z85.72 Personal history of non-Hodgkin lymphomas; Z87.442 Personal history of urinary calculi; Z87.891 Personal history of nicotine dependence; K12.0 Recurrent oral aphthae
CPT/HCPCS: 36415; 36600; 51798; 71045; 71275; 80048; 80051; 80053; 81003; 82274; 82330; 82805; 83605; 83615; 84443; 84484; 85007; 85025; 87040; 87070; 87205; 87426; 87635; 87641; 87804; 93005; 94640; 96365; 96372; 96375; 97110; 97116; 97161; 97530; 99285; J0692; J1650; J2405; J3370; J7030; J7512; J8499; Q9967

== ENCOUNTER 2021-04-06 06:20 | Outpatient (CLI) | payer MEDICARE, OTHER, SELFPAY ==
[2021-04-06] MEDS: sodium chloride 0.9% 1,000 ML 999 ML IV (14:26)
[2021-04-06 14:41] LABS: Basophils # 0.1 10^3/uL (0.0-0.1); Basophils % 0.9 %; Eosinophils # 0.1 10^3/uL (0.0-0.8); Eosinophils % 1.7 %; Hematocrit 33.9 % (42.0-52.0); Lymphocytes % 19.4 %; Mean Corpuscular HGB Conc 29.5 g/dL (30.0-36.0); Mean Corpuscular Hemoglobin 22.6 pg (28.0-34.0); Mean Corpuscular Volume 76.5 fL (80-94); Monocytes # 0.4 10^3/uL (0.2-0.9); Monocytes % 8.1 %; Neutrophils # 2.96 10^3/uL (1.8-7.7); Neutrophils % 55.8 %; Nucleated Red Blood Cells % 0 %; Platelet Count 174 10^3/cmm (130-400); Red Blood Count 4.43 10^6/uL (4.1-5.3); Red Cell Distribution Width 28.5 % (12.1-15.1); White Blood Count 5.3 10^3/uL (4.0-10.0)
[2021-04-06 15:08] LABS: Alanine Aminotransferase 55 U/L (0-41); Albumin Level 3.7 g/dL (3.5-5.2); Alkaline Phosphatase 90 IU/L (40-130); Anion Gap 14.9 (5-19); Aspartate Amino Transferase 28 U/L (0-40); Blood Urea Nitrogen 28 mg/dL (8-23); Calcium 9.2 mg/dL (8.5-10.5); Carbon Dioxide 27 mmol/L (22-29); Chloride 98 mmol/L (98-107); Globulin 2.2 g/dL (1.3-4.6); Glucose 148 mg/dL (65-115); Lactate Dehydrogenase 99 U/L (135-225); Osmolality Calculated 288 mOsm/kg (285-295); Potassium 4.9 mmol/L (3.5-5.1); Sodium 135 mmol/L (136-145); Total Bilirubin 0.4 mg/dL (0.15-1.2); Total Protein 5.9 g/dL (6.6-8.7)
[2021-04-06 15:13] LABS: Slide Review Slide Review Perform
[2021-04-06 15:30] LABS: Erythrocyte Sedimentation Rate 39 mm/hr (0-10)
[2021-04-06 16:51] LABS: Iron 41 ug/dL (59-158); Percent Saturation 17.1 % (20-50); Total Iron Binding Capacity 239 mcg/dl; Unsaturated Iron Binding 198 ug/dL (112-347)
[2021-04-06 17:28] LABS: Ferritin 3868 ng/mL (30-400)
--- NOTE | 2021-04-08 07:10 | ONC FU_ITS ---
Dr. Fallon Patient Follow-Up Note Patient: Seth Cadet Unit #: [id number]: 1945 Dicatated By: Erik Fallon M.D.Date of Visit:Apr 06, 2021 Onc Med Follow-up/Prog Note Chief Complaint: Lymphoma/anemia. History of Present Illness: This is a 75 year-old man with a history of diffuse large B-cell lymphoma. He is being seen now because of anemia. He had presented in August of 2007 with a 6 cm mass in the upper abdomen, anterior and lateral to the superior mesenteric-portal vein. He had an early relapse following initial treatment with 5 cycles of R-CHOP chemotherapy, which he had completed in November 2007. He then underwent salvage chemotherapy with R-ESHAP followed by GemOx and subsequent high-dose chemotherapy/stem cell transplant at [facility] in October of 2008. Following that procedure, he developed persistent thrombocytopenia and he continued to have fairly marginal performance status. As of his follow-up visit in December 2012 there have been no evidence of recurrence of the lymphoma by restaging CT scan and repeat bone marrow aspiration/biopsy. At that time, he had evidence of severe hypogammaglobulinemia, but he was not overtly symptomatic with it. 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 However, I did not recommend any treatment for it, as his transferrin saturation was low and that particular genotype was not reported to be associated with hereditary hemochromatosis. I had seen him for follow-up on 01/24/2018. CBC was unremarkable with hemoglobin 15.3 g, white blood cell count 9800, and platelet count 245,000. Comprehensive metabolic profile showed BUN 15 and creatinine 1.4 mg/dL. Liver enzymes were normal. His LDH was 73 U/mL with the lower limit of normal at 87 U/mL. The most significant finding was an elevated sedimentation rate at 92 mm/hour and elevated CRP at 10.600 mg/dL. TSH was normal at 3.050 mIU/mL. The serum iron studies show transferrin saturation 17.3% with ferritin elevated at 1975 ng/mL. He had further evaluation with PET/CT on 02/03/2018. It showed a small region of flocculent soft tissue to the left of the celiac axis demonstrating minimal FDG activity. This was thought to perhaps be inflammatory. Hazy mesentery was noted to be greatly improved compared to the prior study from April 2008. There were no other areas of abnormal FDG uptake. A large right pleural effusion noted on the prior study was noted to have resolved. With those findings, he continued on expectant management. His other medical illnesses include hypertension, hypercholesterolemia, benign prostatic hypertrophy, and chronic anxiety. He also has a history of peptic ulcer disease, and he does have some degenerative arthritis. He had smoked cigars in the past, but he quit at least 25-30 years ago. He has never smoked cigarettes. 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 INTERIM HISTORY: On 03/24/2021 he had presented to the emergency room with abdominal pain and weakness. He had recently been seen in an emergency room in [place] and had been treated for bronchitis. At that time he was having shortness of breath and cough, but he then became progressively weak urine he also complained of having a lot of stomach pain. He was found to be significantly anemic with hemoglobin 7.8 g and hematocrit 25.8%. The red cell indices were significantly hypochromic/microcytic with MCV 72 and MCH 21. A stool Hemoccult done in the emergency room was reported to be negative. Chest x-ray showed coarsening of interstitial markings throughout both lungs, felt to be probably chronic in nature. His contrast enhanced CT abdomen/pelvis showed bilateral nephrolithiasis without evidence of obstructive uropathy. There were no other acute findings in the abdomen/pelvis and there was no significant interval change compared to a prior study from December 2020. In particular, there were no pathologically enlarged lymph nodes identified. He was admitted and by the following day there was further drop in the hemoglobin to 7.3 g, at which point he was given a PRBC transfusion. His further laboratory studies included serum iron studies which showed a low serum iron at 16 mcg/dL and low transferrin saturation at 12.0%. The serum ferritin, though, was significantly elevated at 3037 ng/mL. I had seen him for a follow-up visit on 03/26/2021. At that point he was still feeling generally weak and he was having low-grade fever off and on. He was having pain in the upper abdominal area, but he had not been aware of any blood in the stool. His hemoglobin was up to 9.3 g with white blood cell count 5700 and platelet count 144,000. The red cell indices were hypochromic/microcytic. LDH was normal at 120 3U/L and haptoglobin was elevated. The bilirubin and liver enzymes were normal. His ferritin, as before, was significantly elevated at 4087 ng/mL. His serum iron studies showed normal transferrin saturation at 34%, but thought that may have been affected by the recent transfusion. He was scheduled to return for follow-up at a 1-week interval. However, he then presented to the emergency room on 03/31/2021 with persistent fever along with increased shortness of breath and cough. CT pulmonary angiogram was negative for pulmonary embolism, but it did show evidence of bibasilar pneumonia, for which he began on IV antibiotic therapy. Covid and influenza testing were negative. He was discharged home on oral antibiotic coverage with Levaquin. At that time he also began empiric treatment with acyclovir and prednisone for oral stomatitis. Blood counts during that time remained moderately decreased. His hemoglobin at discharge was 8.2 g with white blood cell count 3500 and platelet count 75,000. He is seen now for a follow-up visit. He continues to complain that he is very weak, and he has virtually no activity. His ECOG score is 3. He has very poor appetite, and he has lost weight. He has not had any more fever and he does not complain of night sweating. He has having sinus drainage and he also complains of hoarseness. His mouth sores are getting better. He still has some cough, but not as much. He has some shortness of breath. He says his breathing is fair. He is not having chest pain. He has no GI or complaints. He complains of having pain in his neck and back and he has some degree of generalized pain as well. He does not complain of headache or dizziness, and he has no focal neurologic symptoms. Medications: Bee Caps Caplet, Flomax 1 (0.4 mg) Capsule Oral daily, Multi-Vitamin 1 Tablet Oral daily, Omeprazole 1 - 2 (20 mg) Capsule Delayed Release Oral daily, Probiotic Multi-Enzyme Tablet Oral, TraMADol HCl 1 Tablet (of 50 mg) Oral b.i.d., Vitamin D3 1 (2000 Units) Capsule Oral daily, ZyrTEC Allergy 1 (10 mg) Tablet Oral daily Allergies: Dilaudid, IV Ativan, and Penicillins. Vital Signs: Performed on Apr 06, 2021 14:29 Height - 71.00 in Temperature - 97.9 F (LOW) Pulse - 96 /min Respiration - 18 /min BP - 113/70 mm(hg) O2 Sat - 94 % (LOW) Pain - 5 Fatigue - 8 Physical Examination: Constitutional - He appears generally weak, Eyes - Sclerae nonicteric. Conjunctivae clear, ENMT - There is a slight coating on the tongue. There are no other lesions noted in the oral cavity, Hematologic/Lymphatic - No cervical, clavicular, or axillary adenopathy, Respiratory - Lungs show bibasilar rales, Cardiovascular - Heart is regular. There is no murmur, gallop, or rub noted, Abdomen - Mildly distended but soft. Liver and spleen are not enlarged. There is no abdominal mass or ascites noted and there is no inguinal adenopathy, Extremities - No edema, Neurologic - No focal neurologic deficits noted. Lab/Imaging: Test performed on Apr 06, 2021 14:10 Ferritin 3868 ng/mL Iron 41 mcg/dL LDH (Total) 99 U/L Sodium 135 mmol/L Iron Binding Capacity (TIBC) 239 mcg/dl Potassium 4.9 mmol/L % Iron Saturation 17.1 % Chloride 98 mmol/L CO2 27 mmol/L UIBC 198 mcg/dL Anion Gap 14.9 BUN 28 mg/dL Creatinine 1.1 mg/dL Cr Clearance (Est) 73.6300 mL/min Glucose 148 mg/dL Osmolality - Calculated 288 mOsm/kg Calcium 9.2 mg/dL Protein, Total 5.9 g/dL Albumin 3.7 g/dL Globulin 2.2 g/dL Bilirubin, Total 0.4 mg/dL ALT (SGPT) 55 U/L AST (SGOT) 28 U/L Alkaline Phosphatase 90 IU/L ESR (Sed Rate) 39 mm/hr WBC 5.3 10 3/uL RBC 4.43 10 6/uL HGB 10.0 g/dL HCT 33.9 % MCV 76.5 fL MCH 22.6 pg MCHC 29.5 g/dL RDW 28.5 % Platelet Count 174 10 3/cmm Neutrophils 2.96 10 3/uL Lymphocytes 1.0 10 3/uL Monocytes 0.4 10 3/uL Eosinophils 0.1 10 3/uL Basophils 0.1 10 3/uL Neutrophil % 55.8 % Lymphocyte % 19.4 % Monocyte % 8.1 % Eosinophil % 1.7 % Basophils % 0.9 % NRBC % 0 % CBC Slide Review Slide Review Perform SLIDE REVIEW AGREES WITH AUTOMATED RESULTS Problem List: 1. Moderately severe anemia, hypochromic/microcytic. 2. History of diffuse large B-cell lymphoma, in remission. 3. 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 Treatment was not recommended, as his transferrin saturation was low and that genotype was not reported to be associated with hereditary hemochromatosis. 4. He had severe hypogammaglobulinemia. He did not receive replacement therapy, as he did not appear to be symptomatic with it. 5. He also had significantly elevated inflammatory markers, but with no clinical evidence for a specific underlying cause. 6. Hypertension. 7. Hyperlipidemia. 8. Benign prostatic hypertrophy. 9. GERD/peptic ulcer disease. 10. Degenerative arthritis. 11. Chronic anxiety. Problems Addressed with this Encounter and Plan: 1. Patient presented recently with moderately severe anemia. Some component of iron deficiency was suspected based on the hypochromic/microcytic red cell indices and low transferrin saturation. During short-term follow-up if evolved into mild to moderately severe pancytopenia. This developed in association with an acute febrile illness, suspected to be bilateral pneumonia based on symptoms and CT findings. At this point his fever does seem to be resolving on antibiotic coverage with Levaquin, but he continues to have multiple complaints including severe weakness and nausea/anorexia, among others. His blood counts today appear to be significantly improved, possibly due to his having started steroid therapy for oral stomatitis. At least for now he will continue on his current medication regimen with addition of oral nystatin. He will be given IV fluids and IV antiemetics today. He will be scheduled to return next week for repeat lab studies. If his cytopenias persist he will need to undergo bone marrow aspiration/biopsy. In the meantime, he can return for additional IV hydration as needed. 2. He has a history of diffuse large B-cell lymphoma, presenting in August 2007 with 6 cm mass in the upper abdomen. He had early relapse following initial treatment with 5 cycles of R-CHOP chemotherapy, which he had completed in November 2007. He then underwent salvage chemotherapy with R-ESHAP followed by Hubbard/Ox and subsequent high-dose chemotherapy/stem cell transplant at [facility] in October 2008. His subsequent clinical course was complicated by persistent thrombocytopenia and marginal performance status, but as of his followup visit in January 2018 there was no evidence of recurrence of the lymphoma. Thus far his current CT scans have shown no findings to suggest recurrence of the lymphoma. 3. He has a significantly elevated serum ferritin. 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 Treatment was not recommended, as his transferrin saturation was low and that genotype was not reported to be associated with hereditary hemochromatosis. A specific cause for the elevated ferritin has not been determined, but it is presumed to be elevated on the basis of an acute phase reactant, as he has had significantly elevated inflammatory markers. Signed By: Erik Fallon M.D. <<Signature on File>>
== END 2021-04-06 06:21 | disposition home or self-care (01) ==
LOC: ONCMED 06:24
PROVIDERS: PCP Emergency Medicine Emergency Medical Services; Visit Provider Internal Medicine Medical Oncology
DX: D64.9 Anemia, unspecified (principal); Z85.72 Personal history of non-Hodgkin lymphomas; I10 Essential (primary) hypertension; E78.5 Hyperlipidemia, unspecified; N40.0 Benign prostatic hyperplasia without lower urinary tract symptoms; K21.9 Gastro-esophageal reflux disease without esophagitis; M19.90 Unspecified osteoarthritis, unspecified site; F41.9 Anxiety disorder, unspecified; Z92.21 Personal history of antineoplastic chemotherapy; Z79.899 Other long term (current) drug therapy
CPT/HCPCS: 36415; 80053; 82728; 83540; 83550; 83615; 85025; 85651; 96360; 99214; J7030

== ENCOUNTER 2021-04-07 10:56 | Outpatient (CLI) | payer MEDICARE, OTHER, SELFPAY ==
[2021-04-07 13:11] LABS: Urine Appearance Clear (CLEAR); Urine Color Yellow (Yellow)
[2021-04-07 13:12] LABS: Add Urine Microscopic? YES; Bilirubin Urine Neg (Negative); Blood Urine 2+ (Negative); Glucose Urine UA Norm (Normal); Ketones Urine Negative (Negative); Leukocyte Esterase Urine Negative (Negative); Nitrate Urine Negative (Negative); Protein Urine Neg (Negative); RBC Urine 0-4 /hpf (0-2); Urobilinogen Urine Neg (Negative); pH Urine 5 (5-7)
[2021-04-07 13:13] LABS: Add Urine Culture? No; Squamous Epithelial Cell Urine 0-4 /hpf (0-5)
== END 2021-04-07 10:57 | disposition home or self-care (01) ==
LOC: ONCMED 11:00
PROVIDERS: PCP Emergency Medicine Emergency Medical Services; Visit Provider Internal Medicine Medical Oncology
DX: N20.0 Calculus of kidney (principal); M54.5 Low back pain; G89.29 Other chronic pain; D50.9 Iron deficiency anemia, unspecified; D80.1 Nonfamilial hypogammaglobulinemia; Z79.899 Other long term (current) drug therapy
CPT/HCPCS: 74019; 81001; 96361; 96365; 96375; J1100; J2270; J7030

== ENCOUNTER 2021-04-07 13:46 | Outpatient (CLI) | payer MEDICARE, OTHER, SELFPAY ==
--- NOTE | 2021-04-07 14:07 | XR_ITS ---
WS: [id number] Abdomen series, Flat and upright 04/07/2021 Clinical Data: STONE ON CT, SEVERE LOWER BACK PAIN Comparison: KUB, 02/15/2021. CT abdomen and pelvis, 03/24/2021. Findings: No free air is seen beneath the diaphragms. No abnormal intra-abdominal masses are seen. Th ere are bilateral calcifications overlying the kidneys. The largest calcification measures 1.0 cm on the left. There is air in the small bowel but no evidence of obstruction. There is fecal material in the colon which obscures detail especially over the right kidney. The calculi in the bladder noted on the CT scan are not visualized on the current examination. XR/XR abdomen min 2V [id number] Impression: Bilateral renal calculi.
== END 2021-04-07 13:47 | disposition home or self-care (01) ==
PROVIDERS: PCP Emergency Medicine Emergency Medical Services; Visit Provider Internal Medicine Medical Oncology
DX: N20.0 Calculus of kidney (principal); M54.5 Low back pain
CPT/HCPCS: 74019

== ENCOUNTER 2021-04-08 09:28 | Outpatient (RCR) | payer MEDICARE, OTHER, SELFPAY ==
[2021-04-08] MEDS: sodium chloride 0.9% 1,000 ML 999 ML IV (10:22)
[2021-04-08 10:25] VITALS: RESP 20; O2SAT 96
[2021-04-08] MEDS: ondansetron 4 MG Tablet 8 MG PO (10:25)
[2021-04-08] MEDS: morphine 4 mg/mL SDV 1 mL IV (10:25)
[2021-04-08 10:35] LABS: Basophils % 0.5 %; Eosinophils # 0.2 10^3/uL (0.0-0.8); Eosinophils % 2.7 %; Hematocrit 28.3 % (42.0-52.0); Hemoglobin 8.5 g/dL (11.7-16.6); Lymphocytes # 1.4 10^3/uL (0.8-4.8); Lymphocytes % 22.9 %; Mean Corpuscular Hemoglobin 22.5 pg (28.0-34.0); Mean Corpuscular Volume 74.9 fL (80-94); Monocytes # 0.5 10^3/uL (0.2-0.9); Monocytes % 8.6 %; Neutrophils # 3.37 10^3/uL (1.8-7.7); Neutrophils % 54.5 %; Nucleated Red Blood Cells % 0 %; Platelet Count 124 10^3/cmm (130-400); Positive C 1; Positive M 1; Red Blood Count 3.78 10^6/uL (4.1-5.3); Red Cell Distribution Width 27.7 % (12.1-15.1); White Blood Count 6.2 10^3/uL (4.0-10.0)
[2021-04-08 11:03] LABS: Add RBC Morph No; Slide Review Slide Review Perform
[2021-04-08 11:11] LABS: Alanine Aminotransferase 29 U/L (0-41); Albumin Level 3.3 g/dL (3.5-5.2); Alkaline Phosphatase 80 IU/L (40-130); Aspartate Amino Transferase 13 U/L (0-40); Blood Urea Nitrogen 25 mg/dL (8-23); Calcium 8.5 mg/dL (8.5-10.5); Carbon Dioxide 25 mmol/L (22-29); Chloride 101 mmol/L (98-107); Globulin 2.2 g/dL (1.3-4.6); Glucose 107 mg/dL (65-115); Osmolality Calculated 287 mOsm/kg (285-295); Sodium 136 mmol/L (136-145); Total Bilirubin 0.4 mg/dL (0.15-1.2); Total Protein 5.5 g/dL (6.6-8.7)
[2021-04-08 11:17] LABS: Erythrocyte Sedimentation Rate 43 mm/hr (0-10)
--- NOTE | 2021-04-09 07:31 | PM.DCS ---
Discharge Providers Date of Discharge: April 09, 2021 Attending Provider at Discharge: Shanae Ibrahim Primary Care Provider: Augusto Gu DO Reason for Visit Reason for Visit: iron def anemia Hospital Course Hospital Course 75 year old male with PMH of Non-Hodgkins lymphoma Diagnosed 2006, B-cell. Stem cell transplant 2008, BPH loc w urin obs/LUTS Bronchitis, DJD (degenerative joint disease) , GERD (gastroesophageal reflux disease) , hyperlipidemia , hypertension who presented to the emergency department with complaints of cough, productive at times as well as shortness of breath and subjective fever for 3 weeks.He was admitted for the management of Pneumonia ,ac hypoxic r/f 2/2 to pna , as well as pancytoenia. He was kept on broad spectrum abxs ,cultures were negative ( blood culture and sputum culture ,MRSA PCR was negative ). Patient was also managed for apthous ulcer he was for which he was started on acyclovir as well as prednisone and was discharged on it for additional 7 days ( prednisone 20 mg po daily as well as acyclovir 400 mg TID ).Patient responded well to the above medical management and was discharged in stable condition.Home oxygen evaluation was done prior to discharge and patient did not qualify for home oxygen.He will continue to follow oncology as outpatient. Physical Exam Const: COMMON NORMALS: patient oriented x3 HENMT: COMMON NORMALS: normocephalic, atraumatic, hearing grossly normal bilaterally and external ears normal HEAD & SCALP: normocephalic and atraumatic EXTERNAL EAR: Yes external ears normal Eye: COMMON NORMALS: no scleral icterus GENERAL EYE: appearance normal, both eyes and all related structures Chest: COMMONS NORMALS: normal inspection of the chest and normal palpation of entire chest wall CHEST: Yes Symmetrical chest wall rise Resp: COMMON NORMALS: normal respiratory effort, No retractions, No use of accessory muscles and clear to auscultation bilaterally EFFORT & INSPECTION: Yes symmetric chest movement AUSCULTATION: clear to auscultation bilaterally Cardio: COMMON NORMALS: regular rate, regular rhythm, S1 normal heart sound present, S2 normal heart sound present, No gallops present (Cardio), No murmurs present (Cardio), No rub (Cardio) and Peripheral pulses 2+ throughout RATE: regular rate RHYTHM: regular rhythm HEART SOUNDS: S1 normal heart sound present and S2 normal heart sound present PERIPHERAL PULSES: Peripheral pulses 2+ throughout GI: COMMON NORMALS: Normal to inspection, nondistended, normoactive bowel sounds present, Soft to palpation, non-tender, No hepatosplenomegaly present and no masses AUSCULTATION: Yes normoactive bowel sounds PALPATION: Yes Soft to palpation and Yes No hepatosplenomegaly present RECTAL EXAM: Yes deferred : COMMON NORMALS: Yes no CVA tenderness BLADDER/KIDNEY EXAM: Yes no CVA tenderness Back/Pelvis: COMMON NORMALS: no CVA tenderness Extremity: COMMON NORMALS: no clubbing, cyanosis or edema and no pedal edema Neuro: COMMON NORMALS: patient oriented x3 Discharge Data Data Completed and Pending: Pending at discharge Category Date Time Status CRP [C Reactive P rotein] Routine Lab 04/08/21 10:06 Ordered Total Iron Bindin g Capacity Routine Lab 04/08/21 10:06 Ordered Labs from last 24 hours 04/08/21 04/08/21 04/08/21 10:08 10:08 10:08 WBC 6.2 RBC 3.78 L Hgb 8.5 L Hct 28.3 L MCV 74.9 L MCH 22.5 L MCHC 30.0 RDW 27.7 H Plt Count 124 L MPV Not Reportable Neut % (Auto) 54.5 Lymph % (Auto) 22.9 [place] % (Auto) 8.6 Eos % (Auto) 2.7 Baso % (Auto) 0.5 Neut # (Auto) 3.37 Lymph # (Auto) 1.4 [place] # (Auto) 0.5 Eos # (Auto) 0.2 Baso # (Auto) 0.0 Nucleated RBC % (a uto) 0 Nucleated RBCs # 0.0 ESR 43 H Sodium 136 Potassium 4.0 Chloride 101 Carbon Dioxide 25 Anion Gap 14.0 BUN 25 H Creatinine 1.2 GFR Calculation Not Reportable Glucose 107 Calculated Osmolal ity 287 Calcium 8.5 Total Bilirubin 0.4 AST 13 ALT 29 Alkaline Phosphata se 80 Total Protein 5.5 L Albumin 3.3 L Globulin 2.2 Vitals: Last Vital Signs Resp 20 H 04/08/21 10:25 Pulse Ox 96 04/08/21 10:25 Discharge Plan Discharge Patient Disposition: Home Prescriptions: No Action bee pollen 550 mg capsule 550 mg PO DAILY RF: 0 finasteride 5 mg tablet 5 mg PO DAILY Qty: 90 RF: 3 fluticasone propionate 50 mcg/actuation Bandana,Suspension 2 spray INTRANASAL DAILY RF: 0 multivitamin [Multiple Vitamins] Tablet 1 tab PO DAILY RF: 0 cetirizine 10 mg tablet 10 mg PO DAILY RF: 0 acetaminophen [Tylenol Extra Strength] 500 mg Tablet 1,000 mg PO Q8H PRN (Reason: Pain) RF: 0 tamsulosin 0.4 mg capsule 0.8 mg PO BEDTIME RF: 0 omeprazole 20 mg capsule,delayed release(DR/EC) 20 mg PO DAILY PRN (Reason: Acid Reflux) RF: 0 cholecalciferol (vitamin D3) [Vitamin D3] 10 mcg (400 unit) Capsule 1 cap PO DAILY Qty: 0 RF: 0 potassium gluconate 595 mg (99 mg) Tablet 595 mg PO DAILY RF: 0 Probiotic 3 billion cell Capsule 1 cap PO DAILY Qty: 0 RF: 0 triamcinolone acetonide 0.1 % Ointment 1 applic TOPICAL DAILY RF: 0 levofloxacin 500 mg tablet 500 mg PO DAILY 7 Days Qty: 7 RF: 0 Robitussin Cough-Chest [place] DM 10-200 mg capsule 1 tab-cap PO Q8H PRN (Reason: cough) Qty: 14 RF: 0 acyclovir 400 mg Tablet 400 mg PO TID 7 Days Qty: 21 RF: 0 prednisone 20 mg tablet 20 mg PO DAILY Qty: 7 RF: 0 Discharge Date/Time: 04/08/21 09:29 Discharge Attestations Time Spent in Discharge Care*: less than 30 min Specific Discharge Activities: educating patient, educating and/or supporting family/caregiver, discussing with pcp/other providers, discussing with mental health case manager/social workers/dc planners, documenting/other paperwork and evaluating patient/reviewing data Status at Discharge: Cognitive status at discharge: cognitively intact, Behavioral status at discharge: cooperative, Functional status at discharge: independent ambulation Overall status at discharge: patient is back to baseline Quality Metrics Clinical Quality Measures During this hospital stay, did patient experience: None Coding Level of Care Code Acute Chg FW DC note
[2021-04-09 08:23] LABS: C Reactive Protein 63.3 mg/L (0.0-4.9); Iron 44 ug/dL (59-158)
[2021-04-09 08:40] LABS: Percent Saturation 20.8 % (20-50); Total Iron Binding Capacity 206 mcg/dl; Unsaturated Iron Binding 163 ug/dL (112-347)
== END 2021-04-12 12:30 | disposition home or self-care (01) ==
LOC: ONCMED 09:28
PROVIDERS: Internal Medicine Medical Oncology; PCP Emergency Medicine Emergency Medical Services; Visit Provider Nurse Practitioner
DX: D61.818 Other pancytopenia (principal); D50.8 Other iron deficiency anemias; E83.110 Hereditary hemochromatosis; Z79.899 Other long term (current) drug therapy
CPT/HCPCS: 36415; 80053; 83540; 83550; 85025; 85651; 86140; 96361; 96365; 96375; J1100; J2270; J7030; Q0162

== ENCOUNTER 2021-04-12 12:34 | Inpatient (IN) | payer MEDICARE, OTHER, SELFPAY ==
[2021-04-12 12:57] VITALS: BP 101/63; PULSE 109; RESP 22; TEMP 38.4; O2SAT 87; BMI 27.8
--- NOTE | 2021-04-12 13:09 | ECG_ITS ---
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: : 1945 Requested By: Krunal Zhao Order Number: [id number] Rajwinder MD: RUFINO DEE Measurements Intervals [place] Rate: 99 P: 12 TX: 149 QRS: -47 QRSD: 125 T: 34 QT: 347 QTc: 446 Interpretive Statements SINUS RHYTHM POSSIBLE RIGHT VENTRICULAR CONDUCTION DELAY [RSR (QR) IN V1/V2] LEFT ANTERIOR FASCICULAR BLOCK [QRS AXIS <= -45, QR IN I, RS IN II] Compared to ECG 03/31/2021 09:05:06 Right bundle-branch block no longer present Myocardial infarct finding no longer present Electronically Signed On 04-12-2021 18:48:47 CDT by RUFINO DEE [id number]
--- NOTE | 2021-04-12 13:09 | XRR_ITS ---
PROCEDURE INFORMATION: Exam: XR Chest Exam date and time: 04/12/2021 1:09 PM Age: 75 years old Clinical indication: Pain; Cough and dyspnea; Chest pressure TECHNIQUE: Imaging protocol: XR of the chest. Views: 1 view. COMPARISON: CR XR chest 1V portable [id number] 03/31/2021 6:53 AM FINDINGS: Lungs: Mild bibasilar atelectasis and/or pneumonia. Pleural spaces: Unremarkable. No pleural effusion. No pneumothorax. Heart/Mediastinum: Unremarkable. No cardiomegaly. Bones/joints: Unremarkable. XR/XR chest 1V portable [id number] IMPRESSION: Mild bibasilar atelectasis and/or pneumonia.
--- NOTE | 2021-04-12 13:10 | ED_ITS ---
HPI - Weakness General: Chief complaint: Weakness Stated complaint: WEAKNESS Time Seen by Provider: 04/12/21 13:05 History of Present Illness: HPI Narrative: This patient is a 75-year-old male who presents to the emergency department complaint of weakness and low-grade fever. Patient recently was admitted for respiratory failure and pneumonia related to her ongoing issues with bronchitis over the past several weeks. 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 Patient presents with a fever of 101 and states very little appetite since being released from the hospital just few days ago. Patient also does have a history of lymphoma. Will do medical evaluation treat as needed. Complaint: generalized weakness Onset (ago): week(s) Duration: constant Location: generalized Severity: moderate Associated symptoms: Reports fever(s); Denies chest pain, chills, dysuria, headache(s), nausea or vomiting Review of Systems General: Reports: 10 or more systems reviewed and unremarkable except in HPI and below Const: Reports: fever(s), fatigue and malaise; Denies: chills or body aches Eyes: Denies: change in vision or blurry vision ENMT: Denies: throat pain, hoarseness or mouth pain Card: Denies: chest pain, palpitations, irregular heart rhythm, edema, swelling of feet/ankles or lightheadedness Resp: Denies: dyspnea, productive cough, non-productive cough, wheezing or pain on inspiration GI: Denies: abdominal pain, nausea or vomiting : Denies: flank pain, dysuria, urinary frequency, urinary urgency or urinary hesitancy Musc: Denies: neck pain, back pain, extremity pain, extremity swelling, joint pain, joint swelling, joint redness, joint warmth or limited range of motion Skin/Breast: Denies: rash, pruritus, erythema or skin tenderness Neuro: Denies: headache(s), numbness in extremities or weakness in extremities Psych: Denies: anxiety or depression PFSH ED PFSH: Medical History Acute respiratory failure with hypoxia BPH loc w urin obs/LUTS Bronchitis DJD (degenerative joint disease) GERD (gastroesophageal reflux disease) History of hyperlipidemia History of hypertension Incomplete bladder emptying Left flank pain Microcytic anemia Non-Hodgkins lymphoma Diagnosed 2006, B-cell. Stem cell transplant 2009 Pancytopenia Pneumonia Renal calculi Right distal ureteral calculus Family History Father , at age 54 Diabetes Heart attack Mother Hypertension Social History Smoking and tobacco status: former smoker Alcohol intake: never Marital status: Current occupational status: employed History of recent travel: No Physical Exam Const: COMMON NORMALS: no acute distress, average body habitus, patient oriented x3, no limitations, healthy appearing, alert and well nourished HENMT: COMMON NORMALS: normocephalic, atraumatic, hearing grossly normal bilaterally, external ears normal, EAC's normal, TM's normal bilaterally, Normal external nose present, Normal nasal mucous membranes and turbinates present, moist oral mucous membranes, oropharynx normal, dentition normal and gingiva normal HEAD & SCALP: normocephalic and atraumatic NOSE: Normal external nose present and Normal nasal mucous membranes and turbinates present EXTERNAL EAR: Yes external ears normal EXTERNAL AUDITORY CANAL: EAC's normal TYMPANIC MEMBRANE: TM's normal bilaterally Neck/C-Spine: COMMON NORMALS: full ROM, no lymphadenopathy, supple, no meningeal signs, no JVD, Thyroid normal and No carotid bruits THYROID: Thyroid normal Chest: COMMONS NORMALS: normal inspection of the chest, normal palpation of entire chest wall, normal inspection of the breasts and normal palpation of the breasts Breast/axilla inspection: Yes normal inspection of the breasts BREAST/AXILLA PALPATION: Yes normal palpation of the breasts Resp: COMMON NORMALS: normal respiratory effort, No retractions, No use of accessory muscles, clear to auscultation bilaterally and percussion normal AUSCULTATION: clear to auscultation bilaterally PERCUSSION: percussion normal Cardio: COMMON NORMALS: no JVD, regular rate, regular rhythm, S1 normal heart sound present, S2 normal heart sound present, No gallops present (Cardio), No clicks present (Cardio), No murmurs present (Cardio), No rub (Cardio) and Peripheral pulses 2+ throughout RATE: regular rate RHYTHM: regular rhythm HEART SOUNDS: S1 normal heart sound present and S2 normal heart sound present PERIPHERAL PULSES: Peripheral pulses 2+ throughout GI: COMMON NORMALS: Normal to inspection, nondistended, normoactive bowel sounds present, Soft to palpation, non-tender, No hepatosplenomegaly present, no masses and no bruits PALPATION: Yes Soft to palpation and Yes No hepatosplenomegaly present : COMMON NORMALS: Yes no CVA tenderness BLADDER/KIDNEY EXAM: Yes no CVA tenderness Back/Pelvis: COMMON NORMALS: no CVA tenderness, thoracic and lumbar spine normal to inspection, no thoracic nor lumbar tenderness, thoraco-lumbar ROM normal and straight leg raise negative bilaterally Extremity: COMMON NORMALS: normal to inspection, full ROM, capillary refill normal, no joint enlargement, no clubbing, cyanosis or edema, no calf tenderness and no pedal edema Neuro: COMMON NORMALS: patient oriented x3 SENSORIUM/ORIENTATION: Yes alert MENINGEAL SIGNS: Yes no meningeal signs Course Reevaluation(s): Reevaluation #1: I did discuss at length with patient and family about findings. They are agreeable to admission. Time: 16:54 Consultations: Consultation #1: I did discuss at length with Dr. Easley about concerns and findings for generalized weakness or dyspnea low-grade fever and elevated D-dimer. Patient has dehydration. Will order a VQ scan to rule out PE patient is given Lovenox. Continue IV hydration. Dr. Easley will see patient write additional orders. Time: 16:54 Vital Signs: Vital signs: Vital Signs Temperature 98.3 F 04/12/21 15:42 Pulse Rate 86 04/12/21 16:13 Respiratory Rate 15 04/12/21 16:13 Blood Pressure 109/67 04/12/21 16:13 Pulse Oximetry 98 04/12/21 16:13 MDM - Weakness MDM Narrative: Medical decision making narrative: This patient is a 75-year-old male who presents to the emergency department complaint of weakness and low-grade fever. Patient recently was admitted for respiratory failure and pneumonia related to her ongoing issues with bronchitis over the past several weeks. 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 Patient presents with a fever of 101 and states very little appetite since being released from the hospital just few days ago. Patient also does have a history of lymphoma. I did discuss at length with Dr. Easley about concerns and findings for generalized weakness or dyspnea low-grade fever and elevated D-dimer. Patient has dehydration. Will order a VQ scan to rule out PE patient is given Lovenox. Continue IV hydration. Dr. Easley will see patient write additional orders. Medical Records: Attestation: I reviewed the patient's medical records. Lab Data: Attestation: I reviewed the patient's lab results. Labs: Lab Results 04/12/21 04/12/21 04/12/21 Range/Units 13:35 13:35 13:35 WBC 5.3 (4.0-10.0) 10^3/ uL RBC 3.86 L (4.1-5.3) 10^6/u L Hgb 8.7 L (11.7-16.6) g/dL Hct 29.3 L (42.0-52.0) % MCV 75.9 L (80-94) fL MCH 22.5 L (28.0-34.0) pg MCHC 29.7 L (30.0-36.0) g/dL RDW 27.9 H (12.1-15.1) % Plt Count 110 L (130-400) 10^3/c mm MPV Not Reportable Lymph % (Auto) Not Reportable [place] % (Auto) Not Reportable Lymph # (Auto) Not Reportable [place] # (Auto) Not Reportable Total Counted 100 (0-100) Atypical Lymphs % 3.0 (0-5) % Absolute Neutrophi ls 3.8 (1.4-6.5) 10^3/c mm Segmented Neutroph ils 58 % Abs Segm Neuts (Ma n) 3.1 (1.6-7.1) 10/cmm Band Neutrophils 13.0 % Abs Band Neuts (Ma n) 0.7 (0.0-1.2) 10^3/c mm Absolute Lymphocyt es 0.8 L (1.2-3.4) 10^3/c mm Lymphocytes (Manua l) 13 % Monocytes (Manual) 2.0 % Absolute Monocytes 0.1 (0.1-0.6) 10^3/c mm Eosinophils (Manua l) 3 % Absolute Eosinophi ls 0.1 (0.0-0.7) 10^3/c mm Basophils (Manual) 0.0 % Absolute Basophils 0.0 (0.0-0.2) 10^3/c mm Metamyelocytes 6.0 % Myelocytes 2.0 % Platelet Estimate Decreased (Normal) Giant Platelets Trace Hypochromasia 1+ H Poikilocytosis 1+ H Anisocytosis 1+ H PT 17.10 H (12.1-14.9) SECO NDS INR 1.35 H (0.8-1.2) APTT 38.9 H (23.9-36.7) SECO NDS D-Dimer 2.39 H (0-0.59) ug/mIFE U Specimen Type Sample Site ABG pH (7.35-7.45) ABG pCO2 (35-45) mmHg ABG pO2 (80.0-100.0) mmH g ABG HCO3 (22-26) mmol/L ABG O2 Saturation ABG Base Excess (-2.0-2.0) mmol/ L Rebel Test A-a O2 Gradient (5-10) mmHg Hematocrit (42-52) % Hgb O2 Saturation (95-100) % Carboxyhemoglobin (0.4-20.1) %THgb Methemoglobin (0.4-1.5) % Total Hemoglobin (14-18) g/dL Ionized Calcium (1.1-1.4) mmol/L O2 Delivery Device O2 Liters/Min % Set Up Mechanic [employer] ID Sodium 134 L (136-145) mmol/L Potassium 4.9 (3.5-5.1) mmol/L Chloride 95 L (98-107) mmol/L Carbon Dioxide 28 (22-29) mmol/L Anion Gap 16.0 (5-19) BUN 28 H (8-23) mg/dL Creatinine 1.7 H (0.7-1.2) mg/dL GFR Calculation Not Reportable Glucose 146 H (65-115) mg/dL Calculated Osmolal ity 286 (285-295) mOsm/k g Lactic Acid (0.5-2.2) mmol/L Calcium 9.2 (8.5-10.5) mg/dL Total Bilirubin 1.2 (0.15-1.2) mg/dL AST 22 (0-40) U/L ALT 30 (0-41) U/L Alkaline Phosphata se 102 (40-130) IU/L Troponin T Baselin e (0-15) ng/L Troponin T 120 Min [place] (0-15) ng/L Delta Troponin T (0-10) ABS# NT-Pro-B Natriuret Pep 400 H (0-125) pg/mL Total Protein 6.2 L (6.6-8.7) g/dL Albumin 3.3 L (3.5-5.2) g/dL Globulin 2.9 (1.3-4.6) g/dL Urine Color (Yellow) Urine Appearance (CLEAR) Urine pH (5-7) Ur Specific Gravit y (1.005-1.030) Urine Protein (Negative) Urine Glucose (UA) (Normal) Urine Ketones (Negative) Urine Blood (Negative) Urine Nitrate (Negative) Urine Bilirubin (Negative) Urine Urobilinogen (Negative) mg/dL Ur Leukocyte Patrizia ase (Negative) Urine RBC (0-2) /hpf Urine WBC (0-5) /hpf Ur Squamous Epith Cells (0-5) /hpf Amorphous Sediment /hpf Urine Bacteria (NONE) /hpf SARS-CoV-2 Ag (Rap id) (Negative) 04/12/21 04/12/21 04/12/21 Range/Units 13:35 13:35 13:39 WBC (4.0-10.0) 10^3/ uL RBC (4.1-5.3) 10^6/u L Hgb (11.7-16.6) g/dL Hct (42.0-52.0) % MCV (80-94) fL MCH (28.0-34.0) pg MCHC (30.0-36.0) g/dL RDW (12.1-15.1) % Plt Count (130-400) 10^3/c mm MPV Lymph % (Auto) [place] % (Auto) Lymph # (Auto) [place] # (Auto) Total Counted (0-100) Atypical Lymphs % (0-5) % Absolute Neutrophi ls (1.4-6.5) 10^3/c mm Segmented Neutroph ils % Abs Segm Neuts (Ma n) (1.6-7.1) 10/cmm Band Neutrophils % Abs Band Neuts (Ma n) (0.0-1.2) 10^3/c mm Absolute Lymphocyt es (1.2-3.4) 10^3/c mm Lymphocytes (Manua l) % Monocytes (Manual) % Absolute Monocytes (0.1-0.6) 10^3/c mm Eosinophils (Manua l) % Absolute Eosinophi ls (0.0-0.7) 10^3/c mm Basophils (Manual) % Absolute Basophils (0.0-0.2) 10^3/c mm Metamyelocytes % Myelocytes % Platelet Estimate (Normal) Giant Platelets Hypochromasia Poikilocytosis Anisocytosis PT (12.1-14.9) SECO NDS INR (0.8-1.2) APTT (23.9-36.7) SECO NDS D-Dimer (0-0.59) ug/mIFE U Specimen Type Arterial Sample Site Radial, right ABG pH 7.45 (7.35-7.45) ABG pCO2 41.7 (35-45) mmHg ABG pO2 81.2 (80.0-100.0) mmH g ABG HCO3 29.0 H (22-26) mmol/L ABG O2 Saturation 97.1 ABG Base Excess 4.6 H (-2.0-2.0) mmol/ L Rebel Test Pos A-a O2 Gradient 2.2 L (5-10) mmHg Hematocrit 26.3 L (42-52) % Hgb O2 Saturation 94.3 L (95-100) % Carboxyhemoglobin 1.9 (0.4-20.1) %THgb Methemoglobin 0.9 (0.4-1.5) % Total Hemoglobin 8.6 L (14-18) g/dL Ionized Calcium 1.2 (1.1-1.4) mmol/L O2 Delivery Device Nc O2 Liters/Min 2.0 % Set Up [employer] ID jmn Sodium 133.0 (136-145) mmol/L Potassium 4.5 (3.5-5.1) mmol/L Chloride (98-107) mmol/L Carbon Dioxide (22-29) mmol/L Anion Gap (5-19) BUN (8-23) mg/dL Creatinine (0.7-1.2) mg/dL GFR Calculation Glucose 142.0 H (65-115) mg/dL Calculated Osmolal ity (285-295) mOsm/k g Lactic Acid 1.0 (0.5-2.2) mmol/L Calcium (8.5-10.5) mg/dL Total Bilirubin (0.15-1.2) mg/dL AST (0-40) U/L ALT (0-41) U/L Alkaline Phosphata se (40-130) IU/L Troponin T Baselin e 18 H (0-15) ng/L Troponin T 120 Min [place] (0-15) ng/L Delta Troponin T (0-10) ABS# NT-Pro-B Natriuret Pep (0-125) pg/mL Total Protein (6.6-8.7) g/dL Albumin (3.5-5.2) g/dL Globulin (1.3-4.6) g/dL Urine Color (Yellow) Urine Appearance (CLEAR) Urine pH (5-7) Ur Specific Gravit y (1.005-1.030) Urine Protein (Negative) Urine Glucose (UA) (Normal) Urine Ketones (Negative) Urine Blood (Negative) Urine Nitrate (Negative) Urine Bilirubin (Negative) Urine Urobilinogen (Negative) mg/dL Ur Leukocyte Patrizia ase (Negative) Urine RBC (0-2) /hpf Urine WBC (0-5) /hpf Ur Squamous Epith Cells (0-5) /hpf Amorphous Sediment /hpf Urine Bacteria (NONE) /hpf SARS-CoV-2 Ag (Rap id) (Negative) 04/12/21 04/12/21 04/12/21 Range/Units 15:49 15:51 16:09 WBC (4.0-10.0) 10^3/ uL RBC (4.1-5.3) 10^6/u L Hgb (11.7-16.6) g/dL Hct (42.0-52.0) % MCV (80-94) fL MCH (28.0-34.0) pg MCHC (30.0-36.0) g/dL RDW (12.1-15.1) % Plt Count (130-400) 10^3/c mm MPV Lymph % (Auto) [place] % (Auto) Lymph # (Auto) [place] # (Auto) Total Counted (0-100) Atypical Lymphs % (0-5) % Absolute Neutrophi ls (1.4-6.5) 10^3/c mm Segmented Neutroph ils % Abs Segm Neuts (Ma n) (1.6-7.1) 10/cmm Band Neutrophils % Abs Band Neuts (Ma n) (0.0-1.2) 10^3/c mm Absolute Lymphocyt es (1.2-3.4) 10^3/c mm Lymphocytes (Manua l) % Monocytes (Manual) % Absolute Monocytes (0.1-0.6) 10^3/c mm Eosinophils (Manua l) % Absolute Eosinophi ls (0.0-0.7) 10^3/c mm Basophils (Manual) % Absolute Basophils (0.0-0.2) 10^3/c mm Metamyelocytes % Myelocytes % Platelet Estimate (Normal) Giant Platelets Hypochromasia Poikilocytosis Anisocytosis PT (12.1-14.9) SECO NDS INR (0.8-1.2) APTT (23.9-36.7) SECO NDS D-Dimer (0-0.59) ug/mIFE U Specimen Type Sample Site ABG pH (7.35-7.45) ABG pCO2 (35-45) mmHg ABG pO2 (80.0-100.0) mmH g ABG HCO3 (22-26) mmol/L ABG O2 Saturation ABG Base Excess (-2.0-2.0) mmol/ L Rebel Test A-a O2 Gradient (5-10) mmHg Hematocrit (42-52) % Hgb O2 Saturation (95-100) % Carboxyhemoglobin (0.4-20.1) %THgb Methemoglobin (0.4-1.5) % Total Hemoglobin (14-18) g/dL Ionized Calcium (1.1-1.4) mmol/L O2 Delivery Device O2 Liters/Min % Set Up [employer] ID Sodium (136-145) mmol/L Potassium (3.5-5.1) mmol/L Chloride (98-107) mmol/L Carbon Dioxide (22-29) mmol/L Anion Gap (5-19) BUN (8-23) mg/dL Creatinine (0.7-1.2) mg/dL GFR Calculation Glucose (65-115) mg/dL Calculated Osmolal ity (285-295) mOsm/k g Lactic Acid (0.5-2.2) mmol/L Calcium (8.5-10.5) mg/dL Total Bilirubin (0.15-1.2) mg/dL AST (0-40) U/L ALT (0-41) U/L Alkaline Phosphata se (40-130) IU/L Troponin T Baselin e (0-15) ng/L Troponin T 120 Min [place] 16.35 H (0-15) ng/L Delta Troponin T -1.65 L (0-10) ABS# NT-Pro-B Natriuret Pep (0-125) pg/mL Total Protein (6.6-8.7) g/dL Albumin (3.5-5.2) g/dL Globulin (1.3-4.6) g/dL Urine Color Dark yellow (Yellow) Urine Appearance Clear (CLEAR) Urine pH 5 (5-7) Ur Specific Gravit y 1.020 (1.005-1.030) Urine Protein Trace (Negative) Urine Glucose (UA) Norm (Normal) Urine Ketones Negative (Negative) Urine Blood 2+ H (Negative) Urine Nitrate Negative (Negative) Urine Bilirubin 1+ H (Negative) Urine Urobilinogen Norm (Negative) mg/dL Ur Leukocyte Patrizia ase Negative (Negative) Urine RBC 0-4 H (0-2) /hpf Urine WBC 5-10 H (0-5) /hpf Ur Squamous Epith Cells 0-4 H (0-5) /hpf Amorphous Sediment 1+ /hpf Urine Bacteria 1+ H (NONE) /hpf SARS-CoV-2 Ag (Rap id) Negative (Negative) Imaging Data^: CXR: Attestation: I personally reviewed and interpreted this imaging study as follows: Radiologist's impression: IMPRESSION: Mild bibasilar atelectasis and/or pneumonia. EKG Data^: EKG 1: Attestation: I personally reviewed and interpreted this EKG as follows: EKG interpretation date: 04/12/21 EKG interpretation time: 13:20 Interpretation: Sinus rhythm heart rate 99 left anterior fascicular block abnormal EKG EKG 2: EKG interpretation date: 04/12/21 EKG interpretation time: 15:12 Prior EKG tracings: available for review Interpretation: Sinus rhythm heart rate 82 left axis deviation right bundle branch block Discharge Plan Discharge Patient Disposition: Placed in Observation Clinical Impression: Dehydration, moderate, Generalized weakness, Post-viral cough syndrome, Anemia, Elevated d-dimer Coding Level of Care Code ED Building Mechanic for Chg Fwd Exam Comprehensive
[2021-04-12] MEDS: sodium chloride 0.9% 500 ML IV ×2 (13:37→16:11)
[2021-04-12] MEDS: acetaminophen 325 mg Tablet 650 MG PO (13:43)
[2021-04-12 13:51] LABS: ABG PCO2 41.7 mmHg (35-45); ABG PH Result 7.45 (7.35-7.45); Alveolar-Arterial Oxygen Gradi 2.2 mmHg (5-10); Arterial Blood Gas Hematocrit 26.3 % (42-52); Base Excess ABG 4.6 mmol/L (-2.0-2.0); Blood Gas Allen Test Pos; Blood Gas Sample Site Radial, right; Blood Gas Sample Type Arterial; Carboxyhemoglobin 1.9 %THgb (0.4-20.1); HGB O2 Sat 94.3 % (95-100); Ionized Calcium Level - ABG 1.2 mmol/L (1.1-1.4); Methemoglobin 0.9 % (0.4-1.5); Oxygen Device NC; Oxygen Saturation ABG 97.1; PO2 ABG 81.2 mmHg (80.0-100.0); Potassium Level - ABG 4.5 mmol/L (3.5-5.0); Total Hemoglobin 8.6 g/dL (14-18)
[2021-04-12 13:56] LABS: Hematocrit 29.3 % (42.0-52.0); Hemoglobin 8.7 g/dL (11.7-16.6); Mean Corpuscular HGB Conc 29.7 g/dL (30.0-36.0); Mean Corpuscular Hemoglobin 22.5 pg (28.0-34.0); Mean Corpuscular Volume 75.9 fL (80-94); Platelet Count 110 10^3/cmm (130-400); Red Blood Count 3.86 10^6/uL (4.1-5.3); Red Cell Distribution Width 27.9 % (12.1-15.1); White Blood Count 5.3 10^3/uL (4.0-10.0)
[2021-04-12 14:11] LABS: INR 1.35 (0.8-1.2); Troponin(5th) Baseline 18 ng/L (0-15)
[2021-04-12 14:12] LABS: Partial Thromboplastin Time 38.9 SECONDS (23.9-36.7)
[2021-04-12 14:14] LABS: D Dimer 2.39 ug/mIFEU (0-0.59)
[2021-04-12 14:19] LABS: Alkaline Phosphatase 102 IU/L (40-130); Potassium 4.9 mmol/L (3.5-5.1)
[2021-04-12 14:31] LABS: Alanine Aminotransferase 30 U/L (0-41); Aspartate Amino Transferase 22 U/L (0-40); Blood Urea Nitrogen 28 mg/dL (8-23); Calcium 9.2 mg/dL (8.5-10.5); Carbon Dioxide 28 mmol/L (22-29); Glucose 146 mg/dL (65-115); Slide Review Slide Review Perform; Total Bilirubin 1.2 mg/dL (0.15-1.2); Total Protein 6.2 g/dL (6.6-8.7)
[2021-04-12 14:37] LABS: Absolute Eosinophils 0.1 10^3/cmm (0.0-0.7); Absolute Segmented Neutrophil 3.1 10/cmm (1.6-7.1); Band Neutrophils Absolute 0.7 10^3/cmm (0.0-1.2); Eosinophils 3 %; Lymphocytes 13 %; Lymphocytes Absolute 0.8 10^3/cmm (1.2-3.4); Monocytes Absolute 0.1 10^3/cmm (0.1-0.6); Segmented Neutrophils 58 %; Total Cells Counted 100 (0-100)
[2021-04-12 14:38] LABS: Absolute Neutrophil 3.8 10^3/cmm (1.4-6.5); Anisocytosis 1+; Giant Platelets Trace; Hypochromasia 1+; Platelet Estimate Decreased (Normal); Poikilocytosis 1+
[2021-04-12 14:44] LABS: Albumin Level 3.3 g/dL (3.5-5.2); Chloride 95 mmol/L (98-107); Globulin 2.9 g/dL (1.3-4.6); Osmolality Calculated 286 mOsm/kg (285-295); Sodium 134 mmol/L (136-145)
[2021-04-12 14:46] LABS: NT Pro B Type Natriuretic Pept 400 pg/mL (0-125)
[2021-04-12 15:42] VITALS: TEMP 36.8; O2SAT 96
[2021-04-12 16:13] VITALS: BP 109/67; PULSE 86; RESP 15; O2SAT 98
[2021-04-12 16:26] LABS: Troponin 5 2HR 16.35 ng/L (0-15)
[2021-04-12 16:28] LABS: Protein Urine Trace (Negative); Urine Appearance Clear (CLEAR); Urine Color Dark Yellow (Yellow); pH Urine 5 (5-7)
[2021-04-12 16:28] LABS: SARS Covid-2 Antigen Negative (Negative)
[2021-04-12 16:29] LABS: Troponin 5 2HR Delta -1.65 ABS# (0-10)
[2021-04-12 16:29] LABS: Add Urine Culture? No; Add Urine Microscopic? YES; Amorphous Sediment Urine 1+ /hpf; Bacteria Urine 1+ /hpf; Bilirubin Urine 1+ (Negative); Blood Urine 2+ (Negative); Glucose Urine UA Norm (Normal); Ketones Urine Negative (Negative); Leukocyte Esterase Urine Negative (Negative); Nitrate Urine Negative (Negative); RBC Urine 0-4 /hpf (0-2); Squamous Epithelial Cell Urine 0-4 /hpf (0-5); Urobilinogen Urine Norm (Negative)
--- NOTE | 2021-04-12 17:40 | PC.PHAR ---
pt states he takes care of his own medications-pt states he takes the medications entered-pt states he takes proscar 5mg hs-ext med histort doesnt show last time filled rx written on 06/03/2020-pt states he stop taking the prednisone filled on 04/04/21 7d/s states it made his stomach hurt
[2021-04-12] MEDS: sodium chloride 0.9% 1,000 ML 100 ML IV ×2 (18:33→21:26)
[2021-04-12] MEDS: enoxaparin 80 mg/0.8 mL Syringe SUBCUT (18:33)
--- NOTE | 2021-04-12 19:09 | ECG_ITS ---
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 Measurements Intervals [place] Rate: 69 P: 15 TN: 156 QRS: -42 QRSD: 139 T: -6 QT: 404 QTc: 434 Interpretive Statements SINUS RHYTHM MARKED LEFT AXIS DEVIATION [QRS AXIS < -30] RIGHT BUNDLE BRANCH BLOCK [120+ ms QRS DURATION, UPRIGHT V1, 40+ ms S IN I/aVL/V4/V5/V6] MODERATE VOLTAGE CRITERIA FOR LVH, CONSIDER NORMAL VARIANT [MEETS CRITERIA IN ONE OF: R(aVL), S(V1), R(V5), R(V5/V6)+S(V1)] Compared to ECG 04/12/2021 13:20:03 Left-axis deviation now present Right bundle-branch block now present Left anterior fascicular block no longer present Electronically Signed On 04-16-2021 6:40:47 CDT by Cass Sandoval M.D. [id number]
--- NOTE | 2021-04-12 19:39 | P.HP_ITS ---
Providers/Chief Complaint Admitting Physician: Shawn Easley Primary Care Provider: Augusto Gu DO Chief Complaint: WEAKNESS History of Present Illness Pleasant 75-year-old gentleman with history of DLBCL, history of autologous bone marrow stem cell transplant, nephrolithiasis, BPH, other chronic conditions recently admitted twice secondary to fever, generalized weakness, pneumonia, most recently discharged on 04/04 to complete additional 7 days of Levaquin, also given prescription for 7 days of prednisone 20 mg daily, however, states had not been taking it as steroids historically had caused him upset stomach. He reportedly has been very weak. With poor appetite. He is still having some cough, but coughing up sputum which is no longer yellow, now it is white. He has not been eating or drinking very much. States that he used to get up to urinate frequently, but that has decreased recently. He has had some mild discomfort with urination. Denies hematuria. Denies any changes in stool. No diarrhea. No trouble or pain swallowing. He states that he frequently gets weak and tired and feels better after rehydration. In ER noted to be febrile, fever 101.1 Fahrenheit. Otherwise no leukocytosis, respiratory rate 22, but subsequently 15 after fluid bolus. Similarly heart rate decreased from 109-86. He is currently feeling better. CBC noted with WBC 5.3, hemoglobin 9.7, platelets 110, atypical lymphocytes 3%, absolute neutrophils 3.8, segmented neutrophils 58%, absolute segmented neutrophils 3.1, band neutrophils 13%, absolute band neutrophils 0.7, absolute lymphocytes 0.8, lymphocytes 13%, monocytes 2%, eosinophils 3%, metamyelocytes 6%, myelocytes 2% trace giant platelets. Hypochromasia 1+, poikilocytosis 1+, anisocytosis 1+. UA with noted 2+ blood, 1+ bilirubin, 0-4 RBC, 5-10 WBC, 0-4 squamous patella cells, 1+ amorphous sediment, 1+ bacteria. COVID-19 rapid antigen negative. CMP with sodium 134, potassium 4.9, chloride 95, BUN 28, creatinine 1.7. Baseline troponin XVIII, 2-hour troponin XVI 0.35. NT proBNP 400. Total prote in 6.2. Albumin 3.3. Globulin 2.9. Review of Systems Const: Reports: fever(s), body aches and fatigue; Denies: chills or malaise Eyes: Denies: change in vision or eye redness ENMT: Denies: throat pain, oral sores or ear or mastoid pain Card: Denies: chest pain, edema, pre-syncope or dyspnea on exertion Resp: Reports: productive cough; Denies: dyspnea, change in phlegm color or hemoptysis GI: Denies: abdominal pain, nausea, vomiting, diarrhea, constipation, hematoc hezia or melena : Reports: dysuria; Denies: flank pain, difficulty urinating, urinary frequency or hematuria Musc: Denies: back pain, joint swelling or joint redness Skin/Breast: Denies: rash, sores or new lesions Neuro: Denies: headache(s), numbness in extremities, weakness in extremities, dizziness, confusion or seizure-like activity Endo: Denies: polyuria or polydipsia Godwin/Lymph: Denies: easy bleeding or purpura All/Imm: Denies: urticaria, throat swelling or tongue swelling Medications/Allergies Home Medications Medication Instructions Recorded Confirmed Last Taken Type Probiotic 1 cap PO BEDTIME #0 03/04/20 04/12/21 04/11/21 History cetirizine 10 mg PO BEDTIME 03/04/20 04/12/21 03/30/21 History multivitamin [Multiple Vitamins] 1 tab PO DAILY 03/04/20 04/12/21 04/10/21 History omeprazole 20 mg PO DAILY PRN 03/04/20 04/12/21 03/15/20 History potassium gluconate 595 mg PO BEDTIME 03/04/20 04/12/21 04/11/21 History tamsulosin 0.8 mg PO BEDTIME 03/04/20 04/12/21 04/11/21 History bee pollen 550 mg capsule 550 mg PO DAILY cap 03/05/20 04/12/21 03/30/21 History dextromethorphan-guaifenesin 1 tab-cap PO Q8H PRN #14 cap 04/04/21 04/12/21 Unknown Rx [Robitussin Cough-Chest [place] DM] Vitamin B-12 1 tab PO DAILY 04/12/21 04/12/21 Unknown History Vitamin D3 1 cap PO DAILY 04/12/21 04/12/21 Unknown History acetaminophen [Tylenol Arthritis] 1,300 mg PO PRN 04/12/21 04/12/21 Unknown History acyclovir 400 mg PO TID 04/12/21 04/12/21 04/12/21 History diphenhydramine-acetaminophen 2 tab PO PRN 04/12/21 04/12/21 Unknown History [Tylenol PM Extra Strength] finasteride 5 mg PO BEDTIME 04/12/21 04/12/21 Unknown History levofloxacin 500 mg PO DAILY 04/12/21 04/12/21 Unknown History morphine 15 mg PO Q4H PRN 04/12/21 04/12/21 04/12/21 12:00 History nystatin 5 ml PO QID 04/12/21 04/12/21 04/12/21 History ondansetron HCl 4 - 8 mg PO Q4H PRN 04/12/21 04/12/21 Unknown History prednisone 20 mg PO DAILY 04/12/21 04/12/21 Unknown History Allergies Allergy/AdvReac Type Severity Reaction Status Date / Time aspirin Allergy Unknown Verified 04/12/21 17:39 hydromorphone [From Dilaudid] Allergy ADR-Dizzine Verified 04/12/21 17:39 ss lorazepam [From Ativan] Allergy Unknown Verified 04/12/21 17:39 Penicillins Allergy ADR-Dizzine Verified 04/12/21 17:39 ss nausea medicine Allergy ADR-Dizzine Uncoded 03/31/21 06:36 ss PFSH Acute PFSH: Medical History Acute respiratory failure with hypoxia BPH loc w urin obs/LUTS Bronchitis DJD (degenerative joint disease) GERD (gastroesophageal reflux disease) History of hyperlipidemia History of hypertension Incomplete bladder emptying Left flank pain Microcytic anemia Non-Hodgkins lymphoma Diagnosed 2006, B-cell. Stem cell transplant 2009 Pancytopenia Pneumonia Renal calculi Right distal ureteral calculus Family History Father , at age 54 Diabetes Heart attack Mother Hypertension Social History Smoking and tobacco status: former smoker Alcohol intake: never Marital status: Current occupational status: employed History of recent travel: No Vitals/I&O/Wt Last Vital Signs Temp 98.3 F 04/12/21 15:42 Pulse 86 04/12/21 16:13 Resp 15 04/12/21 16:13 BP 109/67 04/12/21 16:13 Pulse Ox 98 04/12/21 16:13 04/12/21 04/12/21 04/12/21 06:59 14:59 22:59 Intake Total 1000 / 1000 Balance 1000 / 1000 Weight last 48 hrs Weight 90.718 kg Physical Exam Const: COMMON NORMALS: no acute distress and patient oriented x3 GENERAL APPEARANCE: frail appearing HENMT: COMMON NORMALS: oropharynx normal Neck/C-Spine: COMMON NORMALS: no JVD Resp: COMMON NORMALS: normal respiratory effort and clear to auscultation bilaterally AUSCULTATION: clear to auscultation bilaterally Cardio: COMMON NORMALS: no JVD, regular rhythm, S1 normal heart sound present, S2 normal heart sound present and No murmurs present (Cardio) RHYTHM: regular rhythm HEART SOUNDS: S1 normal heart sound present and S2 normal heart sound present GI: COMMON NORMALS: Normal to inspection, nondistended, normoactive bowel sounds present, Soft to palpation and non-tender PALPATION: Yes Soft to palpation Extremity: COMMON NORMALS: no joint enlargement and no pedal edema Neuro: COMMON NORMALS: patient oriented x3 and moves all extremities Skin: COMMON NORMALS: no rashes or lesions noted GENERAL SKIN EXAM: no rashes or lesions noted Data : 04/12/21 13:35 04/12/21 13:35 Micro: Microbiology 04/12/21 14:19 Blood Culture - Preliminary Blood SPECIMEN COLLECTED 04/12/21 13:35 Blood Culture - Preliminary Blood SPECIMEN COLLECTED A&P Assessment and plan (1) Fever: Recent pneumonia, persistent lower lung changes bilaterally with atelectasis or pneumonia. He does report some persistence of cough, although does state that sputum color is improved from yellow to white. Pneumonia if present previously at least improving. Possible UTI. 5-12 WBC. Possible sepsis this with fever one 101.1, tachycardia 109, bandemia, 13% bands. With history of DLBCL, autologous stem cell transplant. Cell counts reviewed, with noted bandemia, bands 13%, decreased absolute lymphocyte count at 0.8, but also noted eosinophilia, although this appears to be chronic finding. Monocytes 2%. Also appears to be at baseline. Metamyelocytes, myositis noted. All prior cultures appear to be negative. Blood cultures currently collected. Will request sputum cultures, urine culture. We will also request for morning serum cortisol level. TSH. He has been on Levaquin, just about to complete the course currently. Was also discharged on prednisone, although states did not take it due to history of sto mach upset. At this time treat empirically with antibiotic with cefepime, vancomycin which she had tolerated previously. Incentive spirometry. Discussed with hematology, appreciate insight, given protracted course, perhaps not entirely explained by infection, with history of hematologic malignancy bone marrow analysis may be considered. Status: Acute (2) Generalized weakness: As above. PT, OT. 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 Status: Acute (3) TRIXIE (acute kidney injury): Creatinine up to 1.7. He is dehydrated, recently with very poor oral intake. Not drinking water at home either. Received IV fluid challenge in ER with 1000 mL of fluid boluses. Monitor urine output. Recheck renal function. Status: Acute (4) Elevated d-dimer: Respiratory symptoms with persistent cough, dyspnea, recent immobility, dehydration, received therapeutic dose Lovenox, pending VQ scan after abnormal D-dimer in ER. Status: Acute Additional A&P Information Recent pneumonia Pancytopenia: Blood counts improved after starting prednisone History of non-Hodgkin's lymphoma, status post autologous stem cell transplant in 2008 BPH History of phimosis GERD Other chronic conditions noted Attestations Medical Necessity Statement*: Admission of over 2 midnights is going to be needed for assessment of management of possible sepsis, and instrument returning with fever, generalized weakness, after recent admission, with abnormal cell counts, with history of hematologic malignancy, also acute kidney injury, dehydration. Coding Level of Care Code Acute Car Shakeout Operator for g Fwd Exam Comprehensive Diagnoses Fever R50.9 Generalized weakness R53.1 TRIXIE (acute kidney injury) N17.9 Elevated d-dimer R79.89
[2021-04-12 20:12] LABS: Troponin 5 6HR 14.96 ng/L (0-15)
[2021-04-12 20:18] LABS: Troponin 5 6HR Delta -3.04 ng/L (0-12)
--- NOTE | 2021-04-12 20:23 | PC.PHAR ---
Vancomycin is dosed at 1500mg IVPB every 24 hours to produce a predicted trough level of 16.11 (population based pharmacokinetic analysis). A trough level has been ordered from the lab to be obtained before the fourth dose to confirm and adjust if needed.
[2021-04-12 20:29] VITALS: PULSE 71; RESP 18; O2SAT 99
[2021-04-12 20:43] VITALS: BP 102/57; PULSE 72; RESP 17; TEMP 36.6; O2SAT 98
[2021-04-12] MEDS: morphine 4 mg/mL SDV 1 mL 2 MG IVP (21:24)
[2021-04-12] MEDS: cefepime 2,000 MG in sodium chloride 0.9% (plus) 50 ML 100 MG IV (21:25)
[2021-04-12] MEDS: ondansetron 4 MG Tablet PO (21:25)
[2021-04-12] MEDS: finasteride 5 mg Tablet PO (21:25)
--- NOTE | 2021-04-12 22:00 | PC.NURSE ---
Patient was in pain and had no orders for pain medication. Called Dr. Easley and received new orders for morphine 2mg IVP Q4H PRN.
[2021-04-12] MEDS: vancomycin 1,500 MG/300 ML PIGGYBACK 150 MG IV (23:37)
[2021-04-13] VITALS (11 sets, daily range): BP systolic 88–141; BP diastolic 41–66; PULSE 65–111; RESP 16–20; TEMP 36.4–37.6; O2SAT 94–98
[2021-04-13] MEDS: morphine 4 mg/mL SDV 1 mL 2 MG IVP ×4 (02:33→23:25)
[2021-04-13 05:37] LABS: Basophils % 0.8 %; Eosinophils # 0.2 10^3/uL (0.0-0.8); Eosinophils % 4.2 %; Hemoglobin 7.4 g/dL (11.7-16.6); Lymphocytes # 0.6 10^3/uL (0.8-4.8); Lymphocytes % 16.4 %; Mean Corpuscular HGB Conc 28.5 g/dL (30.0-36.0); Mean Corpuscular Hemoglobin 22.5 pg (28.0-34.0); Monocytes # 0.3 10^3/uL (0.2-0.9); Monocytes % 7.4 %; Neutrophils # 2.32 10^3/uL (1.8-7.7); Neutrophils % 61.2 %; Nucleated Red Blood Cells % 0 %; Platelet Count 78 10^3/cmm (130-400); Red Blood Count 3.29 10^6/uL (4.1-5.3); Red Cell Distribution Width 28.1 % (12.1-15.1); White Blood Count 3.8 10^3/uL (4.0-10.0)
[2021-04-13 06:14] LABS: Alanine Aminotransferase 26 U/L (0-41); Albumin Level 2.7 g/dL (3.5-5.2); Alkaline Phosphatase 91 IU/L (40-130); Anion Gap 15.3 (5-19); Aspartate Amino Transferase 20 U/L (0-40); Blood Urea Nitrogen 29 mg/dL (8-23); Calcium 8.1 mg/dL (8.5-10.5); Carbon Dioxide 23 mmol/L (22-29); Chloride 104 mmol/L (98-107); Globulin 1.5 g/dL (1.3-4.6); Glucose 131 mg/dL (65-115); Osmolality Calculated 294 mOsm/kg (285-295); Potassium 4.3 mmol/L (3.5-5.1); Sodium 138 mmol/L (136-145); Total Bilirubin 0.6 mg/dL (0.15-1.2); Total Protein 4.2 g/dL (6.6-8.7)
[2021-04-13 06:25] LABS: Cortisol Random 21.89 ug/dL (2.47-19.5); Thyroid Stimulating Hormone 3.21 uIU/mL (0.27-4.20)
[2021-04-13 09:03] LABS: Slide Review Slide Review Perform
[2021-04-13] MEDS: cefepime 2,000 MG in sodium chloride 0.9% (plus) 50 ML 100 MG IV ×2 (09:43→20:17)
--- NOTE | 2021-04-13 10:03 | PC.CHAP ---
Pastoral Care Encounter/Spiritual Assessment Type of Contact [] Declined dowel pin man visit [] Patient/Family/Request visit [] Outpatient visit [] Follow-up visit [] Physician referral [] Code/Alert [x] Routine visit [] Staff referral [] Actively dying [] Patient sleeping [] Family support [] [] Out of room [] Palliative care [] [] Receiving care in room [] Pre-surgical visit [] Trauma [] Long length of stay [] ICU visit [] Other: Relational/Emotional Strength [x] Patient feels connected with others/family/visitors/staff [] Distress [] Loneliness/isolation [] Abandonment Spirituality of Patient [x] Person of Sarah [] Attends Taoism of their Sarah [x] Believes in Prayer [] Reads Bible or Scientology materials [] There are Spiritual issues to be addressed Director Global Sales Interventions [x] Prayer [x] Active listening [x] Non-anxious presence [] Spiritual/emotional support [] Crisis/trauma care [] Spiritual counseling [] Bereavement support [] Provided bereavement packet [] Provided Bible/devotional materials [] Provided toy/stuffed animal, coloring book to patient or family member [] Provided Communion [] Anointing/Terral [] Salvation [x] Completed spiritual assessment [] Other: Impact on Illness or Injury [] Angry [] Fearful [] Anxious [] Often cries [] Exhaustion [] Unable to work [] Unable to attend nondenominational [] Unable to walk/stand [] Unable to read [] Unable to drive [] Unable to eat/drink [] Unable to sleep [] Unable to be with family [] Patient intubated [] Other: Summary Time spent with patient 10min
--- NOTE | 2021-04-13 10:28 | PC.NURSE ---
patient requesting Tramadol instead of Morphine. Per patient and , patient takes Tramadol 50mg PO Q6H. account underwriter notified Dr Easley. Per Dr Easley, order patient's home med of Tramadol. Car Pick Up Driver put order in.
[2021-04-13] MEDS: sodium chloride 0.9% 1,000 ML 100 ML IV ×2 (11:19→22:54)
--- NOTE | 2021-04-13 15:26 | P.PN_ITS ---
Subjective Subjective: Interval history: States he is doing the same today. Feels achy all over. Generally weak. Denies having a lot of cough. No abdominal pain. Vitals/I&O/Wt Last Vital Signs Temp 97.5 F L 04/13/21 11:56 Pulse 93 04/13/21 11:56 Resp 17 04/13/21 11:56 BP 114/65 04/13/21 11:56 Pulse Ox 98 04/13/21 11:56 04/13/21 04/13/21 04/13/21 06:59 14:59 22:59 Intake Total 350 / 7249.295 1779 / 1290 Output Total 600 / 600 200 / 200 Balance -250 / 1384.172 7042 / 1090 Weight last 48 hrs Weight 82.282 kg Weight 90.718 kg Physical Exam Const: COMMON NORMALS: no acute distress and patient oriented x3 GENERAL APPEARANCE: frail appearing HENMT: COMMON NORMALS: oropharynx normal Neck/C-Spine: COMMON NORMALS: no JVD Resp: COMMON NORMALS: normal respiratory effort and clear to auscultation bilaterally AUSCULTATION: clear to auscultation bilaterally Cardio: COMMON NORMALS: no JVD, regular rhythm, S1 normal heart sound present, S2 normal heart sound present and No murmurs present (Cardio) RHYTHM: regular rhythm HEART SOUNDS: S1 normal heart sound present and S2 normal heart sound present GI: COMMON NORMALS: Normal to inspection, nondistended, normoactive bowel sounds present, Soft to palpation and non-tender PALPATION: Yes Soft to palpation Extremity: COMMON NORMALS: no joint enlargement and no pedal edema Neuro: COMMON NORMALS: patient oriented x3 and moves all extremities Skin: COMMON NORMALS: no rashes or lesions noted GENERAL SKIN EXAM: no rashes or lesions noted Data : 04/13/21 05:23 04/13/21 05:23 Micro: Microbiology 04/12/21 14:19 Blood Culture - Preliminary Blood NEGATIVE TO DATE 04/12/21 13:35 Blood Culture - Preliminary Blood NEGATIVE TO DATE A&P Assessment and plan (1) Fever: Improved sepsis. Bandemia resolved. So far afebrile. Follow-up culture results, so far pending without growth. Continue empiric antibiotics for UTI, possible persistent pneumonia with cefepime, vancomycin. Appreciate hematology consideration of additional bone marrow evaluation given protracted symptoms, recent weight loss, history of hematologic malignancy. Fever, 13% bands on presentation. Bandemia appears to have improved. Lymphopenia persists, 600/mcL. Eosinophils today 0.2. Noted worsening thrombocytopenia 78,000. With history of DLBCL, autologous stem cell transplant. Cell counts reviewed, with noted bandemia, bands 13%, decreased absolute lymphocyte count at 0.8, but also noted eosinophilia, although this appears to be chronic finding. Monocytes 2%. Also appears to be at baseline. Metamyelocytes, myositis noted. All prior cultures appear to be negative. Blood cultures currently collected. Will request sputum cultures, urine culture. TSH normal. Morning serum cortisol 21.89. Incentive spirometry. Low probability for PE on VQ scan. With decreasing platelets. SCD for VT prophylaxis. Status: Acute (2) Generalized weakness: As above. PT, OT. 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 Status: Acute (3) TRIXIE (acute kidney injury): TRIXIE with improvement, creatinine down to 1.3. Dehydrated, recently with very poor oral intake. Not drinking water at home either. Received IV fluid challenge in ER with 1000 mL of fluid boluses. Monitor urine output. Recheck renal function. Status: Acute (4) Elevated d-dimer: Low probability for PE on VQ scan. Anticoagulation not continued. Status: Acute Additional A&P Information Recent pneumonia Pancytopenia: Blood counts improved after starting prednisone History of non-Hodgkin's lymphoma, status post autologous stem cell transplant in 2008 BPH History of phimosis GERD Other chronic conditions noted Attestations Medical Necessity Statement*: Continue admission for assessment management of improved sepsis, persistent generalized weakness recurrent fever, treatment of urinary tract infection, possible persistent pneumonia, improving TRIXIE, with pancytopenia in a gentleman with weight loss and history of hematologic malignancy. Coding Level of Care Code Acute Assistant Professor Of Education for g Fwd Diagnoses Fever R50.9 Generalized weakness R53.1 TRIXIE (acute kidney injury) N17.9 Elevated d-dimer R79.89
[2021-04-13] MEDS: TRAMadol 50 mg Tablet PO (17:29)
[2021-04-13] MEDS: pantoprazole DR 40 mg Tablet PO (17:37)
--- NOTE | 2021-04-13 20:05 | NM_ITS ---
WS: [id number] NUCLEAR MEDICINE VENTILATION/PERFUSION LUNG SCAN HISTORY: assess for poss PE. Cough, dyspnea. Abnormal DDimer. Immobility. COMPARISON: 04/12/2021 TECHNIQUE: Ventilation: 32.8 mCi of Technetium 99 DTPA aerosol inhaled. Perfusion: 5.5 mCi of technetium 99m MAA IV. Mildly coarsened uptake on the ventilatory portion from emphysema. Blunting of the posterior RIGHT co stophrenic angle is matched. No focal unmatched wedge-shaped defects. NM/NM pul vent and perfus* [id number] IMPRESSION: Low probability pulmonary embolism.
[2021-04-13] MEDS: finasteride 5 mg Tablet PO (20:16)
[2021-04-13] MEDS: bisacodyl 10 mg Supp PR (20:19)
[2021-04-13] MEDS: vancomycin 1,500 MG/300 ML PIGGYBACK 150 MG IV (23:07)
[2021-04-14] VITALS (9 sets, daily range): BP systolic 104–130; BP diastolic 65–69; PULSE 76–107; RESP 16–20; TEMP 36.4–38.1; O2SAT 90–98
[2021-04-14] MEDS: TRAMadol 50 mg Tablet PO ×2 (00:41→14:18)
[2021-04-14 06:42] LABS: Basophils % 0.7 %; Eosinophils # 0.3 10^3/uL (0.0-0.8); Eosinophils % 5.9 %; Hematocrit 23.6 % (42.0-52.0); Lymphocytes # 0.7 10^3/uL (0.8-4.8); Lymphocytes % 15.4 %; Mean Corpuscular HGB Conc 29.7 g/dL (30.0-36.0); Mean Corpuscular Hemoglobin 22.9 pg (28.0-34.0); Mean Corpuscular Volume 77.1 fL (80-94); Monocytes # 0.3 10^3/uL (0.2-0.9); Monocytes % 6.7 %; Neutrophils % 59.4 %; Nucleated Red Blood Cells % 0 %; Platelet Count 75 10^3/cmm (130-400); Red Blood Count 3.06 10^6/uL (4.1-5.3); White Blood Count 4.2 10^3/uL (4.0-10.0)
[2021-04-14 07:19] LABS: Alanine Aminotransferase 19 U/L (0-41); Albumin Level 2.4 g/dL (3.5-5.2); Alkaline Phosphatase 76 IU/L (40-130); Anion Gap 14.3 (5-19); Aspartate Amino Transferase 15 U/L (0-40); Blood Urea Nitrogen 33 mg/dL (8-23); Calcium 8.2 mg/dL (8.5-10.5); Carbon Dioxide 22 mmol/L (22-29); Chloride 104 mmol/L (98-107); Globulin 2.5 g/dL (1.3-4.6); Glucose 111 mg/dL (65-115); Osmolality Calculated 290 mOsm/kg (285-295); Potassium 4.3 mmol/L (3.5-5.1); Sodium 136 mmol/L (136-145); Total Bilirubin 0.6 mg/dL (0.15-1.2); Total Protein 4.9 g/dL (6.6-8.7)
[2021-04-14] MEDS: cefepime 2,000 MG in sodium chloride 0.9% (plus) 50 ML 100 MG IV (08:45)
[2021-04-14] MEDS: morphine 4 mg/mL SDV 1 mL 2 MG IVP ×3 (08:55→17:50)
--- NOTE | 2021-04-14 09:52 | PC.OT ---
OT TREATMENT ATTEMPTED. PATIENT REQUESTS TO HOLD UNTIL THIS AFTERNOON HE IS TO HAVE A BONE MARROW PROCEDURE THIS MORNING. WILL ATTEMPT AGAIN IN P.M.
[2021-04-14] MEDS: sodium chloride 0.9% 1,000 ML 30 ML IV (11:41)
[2021-04-14] MEDS: cetylpyridinium Lozenge 1 EACH MUCOUS MEM (11:42)
--- NOTE | 2021-04-14 13:41 | PC.OT ---
OT TREATMENT ATTEMPTED THIS P.M. PATIENT AND SPOUSE REPORT THAT HE DID NOT GET BONE MARROW BIOPSY THIS MORNING AND THAT THEY ARE AWAITING A TRANSFER TO [place] AT THIS TIME. REQUESTS NO THERAPY TODAY.
[2021-04-14 14:35] LABS: Eosinophils # 0.3 10^3/uL (0.0-0.8); Eosinophils % 6.8 %; Hematocrit 26.9 % (42.0-52.0); Hemoglobin 7.3 g/dL (11.7-16.6); Lymphocytes # 0.5 10^3/uL (0.8-4.8); Lymphocytes % 11.5 %; Mean Corpuscular HGB Conc 27.1 g/dL (30.0-36.0); Mean Corpuscular Hemoglobin 22.5 pg (28.0-34.0); Mean Corpuscular Volume 82.8 fL (80-94); Monocytes # 0.2 10^3/uL (0.2-0.9); Monocytes % 5.1 %; Neutrophils # 2.67 10^3/uL (1.8-7.7); Nucleated Red Blood Cells % 0 %; Platelet Count 70 10^3/cmm (130-400); Red Blood Count 3.25 10^6/uL (4.1-5.3); Red Cell Distribution Width 28.6 % (12.1-15.1); White Blood Count 4.1 10^3/uL (4.0-10.0)
--- NOTE | 2021-04-14 15:14 | USCV_ITS ---
Seth Cadet Age: 75 Gender: M : 1945 Exam Date: 04/14/2021 16:27 Ordering Phys: Shawn Easley MD Technologist: Margaret Ramirez Exam Location: [facility] [place] Indication: LLE PAIN HISTORY: Lower extremity pain. PROCEDURES: Venous duplex imaging was performed in only the left lower extremity. The following venous structures were evaluated: common femoral vein, profunda vein, proximal portion of the greater saphenous vein, superficial femoral vein, and the popliteal vein. In addition, the posterior tibial and peroneal trunk were evaluated. Serial compression, augmentation maneuvers, and spectral Doppler flow evaluation were performed. FINDINGS: Normal 2-D Doppler and augmentation and compressibility throughout the lower extremity venous structures. Additional imaging through the proximal calf veins also reveals no thrombus. Limited evaluation of the greater saphenous vein is patent with no thrombus. CONCLUSIONS No DVT left lower extremity. Dr. Marcella Gracia DO (Electronically Signed) Final Date: 15 April 2021 15:12 S
--- NOTE | 2021-04-14 15:30 | PC.NURSE ---
Received call from Eriberto Khan, technical coordinator with [facility] and she provided room #8803 in [facility] for transfer of patient. I spoke with Dr. Easley and Izabel Morrow LPN and informed them both of this information. Accepting physician will be Dr. Anna Ruiz and patient will be transported via EMS. I updated the family and they deny any questions/concerns at this time.
[2021-04-14 15:32] LABS: Neutrophils % 75.1 %
--- NOTE | 2021-04-14 16:21 | PC.NURSE ---
Received report of temperature 100.6F from Cheyenne Fletcher CNA. I informed Dr. Easley and went and spoke with patient and his family and removed the warmed blankets x4 from his bed. No new orders received from physician and will assess temperature prior to patient's transfer. Venous U/S will be performed as well before patient is transferred per Dr. Easley's order.
--- NOTE | 2021-04-14 16:47 | PM.TDS ---
Transfer Summary Providers Date of Admission: 04/12/21 16:57 Date of Discharge: 04/14/21 Attending Provider at Admission: Shawn Easley Attending Provider at Transfer: Shawn Easley Primary Care Provider: Augusto uG DO Anticipated Date of Transfer: Anticipated date of transfer: 04/14/21 Receiving Facility & Provider: Receiving Provider: [] Receiving facility: [] Diagnoses at Discharge Discharge Diagnosis (1) Fever: Status: Acute (2) Pancytopenia: Status: Acute (3) Generalized weakness: Status: Acute (4) TRIXIE (acute kidney injury): Status: Acute (5) Elevated d-dimer: Status: Acute Other Information Additional DC diagnoses/information: Recent pneumonia Pancytopenia: Blood counts improved after starting prednisone History of non-Hodgkin's lymphoma, status post autologous stem cell transplant in 2008 BPH History of phimosis GERD Reason for Visit Reason for Visit: WEAKNESS Hospital Course Hospital Course Very pleasant 75-year-old gentleman with history of DLBCL, autologous bone marrow stem cell transplant in 2008, chronic location of serum ferritin, 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 He was initially presented with generalized weakness, night sweats during the first hospitalization, after observation the hospital is referred for follow-up with hematology for consideration of assessment for possible return of lymphoma with noted generally low cell counts, WBC down to 4.7, lymphopenia, 600/mcL, mild thrombocytopenia 136,000. Thought to have associated bronchitis at the time. CT abdomen pelvis obtained during the observation hospitalization on 03/24 showed bilateral nephrolithiasis without obstructive uropathy. Urinary bladder calculi noted. No pathologically enlarged lymph nodes. Other studies obtained during hospitalization included ESR of 48, haptoglobin 229, rheumatoid factor mildly elevated 23, NEHEMIAS negative. CRP 186. Unremarkable UA. SPEP with hypogammaglobulinemia. He returned to the hospital shortly after on 03/31 with persistence of symptoms of generalized weakness, with noted fever, at that time productive cough with yellow sputum. CT angiogram of the chest revealed tree-in-bud opacifications bilaterally, possibly secondary to endobronchial pneumonia, no PE. Reactive lymphadenopathy was seen -please note as per full report this is documented as prominent mediastinal and hilar lymphoid tissue, right paratracheal lymph node measures 11 mm. Bilateral hilar adenopathy with largest lymph node measuring 10 mm. Incidentally also noted scattered hypodensities in the liver but these were also seen on 01/20/2018. Chronic emphysema. No growth was obtained on sputum culture. Blood cultures negative. COVID-19 by PCR not detected. MRSA PCR negative. Minimal oxygen requirement during hospitalization, 2 L nasal cannula, did not qualify for oxygen at discharge. Noted worsening pancytopenia, WBC 2.5, hemoglobin as low as 8.2, platelets as low as 62,000. Lymphopenia, 600/mcL. Treated with cefepime, vancomycin in the hospital, discharged with additional 7 days of Levaquin, prednisone, acyclovir also was added for oral stomatitis. Please see full documentation from that hospitalization. 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 Appear to show some improvement in cell counts possibly secondary to steroid. Bone marrow aspiration/biopsy considered at the time in case of persistent cytopenias. Oral nystatin was added. He was asked to return in a week. He was about to complete antibiotic course at the time of presentation for third hospitalization 04/12, returning due to persistent generalized weakness, again febrile, temp 101.1, despite improvement in other symptoms decreasing sputum production, phlegm no longer yellow. Improving cough. Persistent generalized weakness. Very poor appetite. Body aches. Persistent cytopenias, WBC 5.3, hemoglobin 9.7 completely 110. Noted 3% atypical lymphocytes. Absolute neutrophils 3800. Segmented neutrophils 58%. Absolute segmented neutrophils 3.1. Band neutrophils 13%. Absolute band neutrophils 0.7, absolute lymphocytes 0.8, lymphocytes 13%, monocytes 2%, eosinophils 3%, metamyelocytes 6%, myelocytes 2%, trace giant platelets. Hypochromasia 1+, poikilocytosis 1+, anisocytosis 1+. Liver parameters normal. Chest x-ray with mild bibasilar atelectasis and/or pneumonia. Mild hypoxia, requiring 3 L nasal cannula. Abnormal D-dimer, 2.39. VQ scan negative for PE. Lower extremity duplex obtained, results not yet available. Rapid COVID-19 negative. Troponin T series 18-16.35-14.96. NT proBNP 400. Blood pressure somewhat soft on presentation 107/57, down as low as 88/41 transiently but with resolution. TSH normal. Morning serum cortisol obtained, 21.89. Tamsulosin held. Noted acute kidney injury on admission, creatinine up to 1.7. Baseline around 1.2. No obstruction noted on recent CT with known prior nephrolithiasis. With poor oral intake, dehydrated. Received gentle fluid challenge, now stopped. Creatinine with transient improvement to 1.3, some worsening today again to 1.8. CK requested. UA with 2+ blood, 1+ bilirubin, 0-4 RBC, 5-10 WBC, 0-4 squamous epithelial cells, negative nitrate, negative leukocyte esterase, 1+ bacteria. Blood cultures repeated, also requested sputum cultures, so far due to lack of sputum and collected. Urine cultures without growth apart from superficial nicola. Urine bacterial antigens including strep pneumo, Haemophilus influenza, Legionella negative. Galactomannan, beta D glucan requested. AFB not yet collected. On cefepime, vancomycin. Fever again recurring this afternoon 100.6. Chills. Oxygenation stable on 3 L nasal cannula. Generally weak. Per discussion with hematology, patient and family request is made for transfer to [facility] for additional evaluation, possibly including infectious disease, in addition to evaluation on BMT unit with concern for possible hematologic causes of the protracted symptoms. Bone marrow biopsy was initially scheduled here as well, however, this is deferred for now until transfer completes to allow for a more expedient evaluation with results here taking much longer. In case persistent/atypical infection ruled out, additional consideration may also be given to alternative causes that may present similar symptomatology including PMR or perhaps HLH among others. Physical Exam Narrative: EXAM NARRATIVE: accompanies him at bedside. Const: COMMON NORMALS: no acute distress and patient oriented x3 GENERAL APPEARANCE: frail appearing HENMT: COMMON NORMALS: oropharynx normal Neck/C-Spine: COMMON NORMALS: no JVD Resp: COMMON NORMALS: normal respiratory effort and clear to auscultation bilaterally AUSCULTATION: clear to auscultation bilaterally Cardio: COMMON NORMALS: no JVD, regular rhythm, S1 normal heart sound present, S2 normal heart sound present and No murmurs present (Cardio) RHYTHM: regular rhythm HEART SOUNDS: S1 normal heart sound present and S2 normal heart sound present GI: COMMON NORMALS: Normal to inspection, nondistended, normoactive bowel sounds present, Soft to palpation and non-tender PALPATION: Yes Soft to palpation Extremity: COMMON NORMALS: no joint enlargement and no pedal edema Neuro: COMMON NORMALS: patient oriented x3 and moves all extremities Skin: COMMON NORMALS: no rashes or lesions noted GENERAL SKIN EXAM: no rashes or lesions noted TS Data Data Completed and Pending: Completed Studies During Hospitalization Category Date Time Status XR chest 1V gayle ble [id number] Stat Exams 04/12/21 13:09 Completed NM pul vent and p erfus* [id number] Stat Nuc Med 04/13/21 20:05 Completed Pending at discharge Category Date Time Status Blood Culture Sta t Lab 04/12/21 14:19 Results Complete Blood Co unt w/Auto AM LABS Lab 04/15/21 04:00 Ordered Comprehensive Met abolic Panel AM LA BS Lab 04/15/21 04:00 Ordered Fungitell Glucan Assay Routine Lab 04/14/21 16:37 Ordered Magnesium Routine Lab 04/14/21 15:15 Ordered Miscellaneous June t Routine Lab 04/14/21 16:37 Ordered Sputum Culture an d Gram Stain Routi ne Lab 04/12/21 20:01 Uncollected Urine Culture Rou rashad Lab 04/12/21 20:33 Results Vancomycin Trough Timed Lab 04/15/21 21:00 [place] [id number] Routin e Ultrasound 04/14/21 15:14 Ordered Labs from last 24 hours 04/14/21 04/14/21 04/14/21 14:08 06:14 06:14 WBC 4.1 RBC 3.25 L Hgb 7.3 L Hct 26.9 L MCV 82.8 D MCH 22.5 L MCHC 27.1 L D RDW 28.6 H Plt Count 70 L MPV Not Reportable Neut % (Auto) 75.1 Lymph % (Auto) 11.5 [place] % (Auto) 5.1 Eos % (Auto) 6.8 Baso % (Auto) 1.0 Neut # (Auto) 2.67 Lymph # (Auto) 0.5 L [place] # (Auto) 0.2 Eos # (Auto) 0.3 Baso # (Auto) 0.0 Nucleated RBC % (a uto) 0 Nucleated RBCs # 0.0 Sodium 136 Potassium 4.3 Chloride 104 Carbon Dioxide 22 Anion Gap 14.3 BUN 33 H Creatinine 1.8 H GFR Calculation Not Reportable Glucose 111 Calculated Osmolal ity 290 Calcium 8.2 L Magnesium Pending Total Bilirubin 0.6 AST 15 ALT 19 Alkaline Phosphata se 76 Total Protein 4.9 L Albumin 2.4 L Globulin 2.5 04/14/21 06:14 WBC 4.2 RBC 3.06 L Hgb 7.0 L Hct 23.6 L MCV 77.1 L MCH 22.9 L MCHC 29.7 L RDW 28.0 H Plt Count 75 L MPV Not Reportable Neut % (Auto) 59.4 Lymph % (Auto) 15.4 [place] % (Auto) 6.7 Eos % (Auto) 5.9 Baso % (Auto) 0.7 Neut # (Auto) 2.50 Lymph # (Auto) 0.7 L [place] # (Auto) 0.3 Eos # (Auto) 0.3 Baso # (Auto) 0.0 Nucleated RBC % (a uto) 0 Nucleated RBCs # 0.0 Sodium Potassium Chloride Carbon Dioxide Anion Gap BUN Creatinine GFR Calculation Glucose Calculated Osmolal ity Calcium Magnesium Total Bilirubin AST ALT Alkaline Phosphata se Total Protein Albumin Globulin Vitals: Last Vital Signs Temp 100.6 F H 04/14/21 15:52 Pulse 107 H 04/14/21 15:52 Resp 18 04/14/21 15:52 BP 130/67 04/14/21 15:52 Pulse Ox 90 04/14/21 15:52 TS Medications Medications Home Medications Probiotic 1 cap PO BEDTIME #0 03/04/20 [History Confirmed 04/12/21] cetirizine 10 mg PO BEDTIME 03/04/20 [History Confirmed 04/12/21] multivitamin [Multiple Vitamins] 1 tab PO DAILY 03/04/20 [History Confirmed 04/12/21] omeprazole 20 mg PO DAILY PRN 03/04/20 [History Confirmed 04/12/21] potassium gluconate 595 mg PO BEDTIME 03/04/20 [History Confirmed 04/12/21] tamsulosin 0.8 mg PO BEDTIME 03/04/20 [History Confirmed 04/12/21] bee pollen 550 mg capsule 550 mg PO DAILY cap 03/05/20 [History Confirmed 04/12/21] dextromethorphan-guaifenesin [Robitussin Cough-Chest [place] DM] 1 tab-cap PO Q8H PRN #14 cap 04/04/21 [Rx Confirmed 04/12/21] Vitamin B-12 1 tab PO DAILY 04/12/21 [History Confirmed 04/12/21] Vitamin D3 1 cap PO DAILY 04/12/21 [History Confirmed 04/12/21] acetaminophen [Tylenol Arthritis] 1,300 mg PO PRN 04/12/21 [History Confirmed 04/12/21] acyclovir 400 mg PO TID 04/12/21 [History Confirmed 04/12/21] diphenhydramine-acetaminophen [Tylenol PM Extra Strength] 2 tab PO PRN 04/12/21 [History Confirmed 04/12/21] finasteride 5 mg PO BEDTIME 04/12/21 [History Confirmed 04/12/21] levofloxacin 500 mg PO DAILY 04/12/21 [History Confirmed 04/12/21] morphine 15 mg PO Q4H PRN 04/12/21 [History Confirmed 04/12/21] nystatin 5 ml PO QID 04/12/21 [History Confirmed 04/12/21] ondansetron HCl 4 - 8 mg PO Q4H PRN 04/12/21 [History Confirmed 04/12/21] prednisone 20 mg PO DAILY 04/12/21 [History Confirmed 04/12/21] tramadol 50 mg PO Q6H PRN 04/13/21 [History Confirmed 04/13/21] Active Medications Finasteride (Finasteride 5 Mg Tablet) 5 mg PO BEDTIME LEIGHANN Last Admin: 04/13/21 20:16 Dose: 5 mg Documented by: Cefepime HCl 2,000 mg/ Sodium (Chloride) 50 mls @ 100 mls/hr IV Q12H LEIGHANN; Protocol Last Admin: 04/14/21 08:45 Dose: 100 mls/hr Documented by: Vancomycin/PEG/NADA/Lysine/Water (Vancocin) 1,500 mg in 300 mls @ 150 mls/hr IV Q24H LEIGHANN Last Infusion: 04/14/21 03:32 Dose: Infused Documented by: Morphine Sulfate (Morphine 4 Mg/Ml Sdv 1 Ml) 2 mg IVP Q4H PRN PRN Reason: Pain Last Admin: 04/14/21 12:32 Dose: 2 mg Documented by: Ondansetron HCl (Ondansetron 4 Mg Tablet) 4 mg PO Q4H PRN PRN Reason: Nausea And Vomiting Last Admin: 04/12/21 21:25 Dose: 4 mg Documented by: Pantoprazole Sodium (Pantoprazole Dr 40 Mg Tablet) 40 mg PO DAILY PRN PRN Reason: Acid Reflux Last Admin: 04/13/21 17:37 Dose: 40 mg Documented by: Polyethylene Glycol (Polyethylene Glycol 3350 Pkt 17 Gm) 17 gm PO BID LEIGHANN Last Admin: 04/14/21 08:43 Dose: Not Given Documented by: Tramadol HCl (Tramadol 50 Mg Tablet) 50 mg PO Q6H PRN PRN Reason: Pain, Moderate Last Admin: 04/14/21 14:18 Dose: 50 mg Documented by: Discharge Plan Discharge Patient Disposition: Xfer Short-Term Hosp Condition: Stable Prescriptions: No Action bee pollen 550 mg capsule 550 mg PO DAILY RF: 0 nystatin 100,000 unit/mL suspension 5 ml PO QID RF: 0 ondansetron HCl 4 mg tablet 4 - 8 mg PO Q4H PRN (Reason: Nausea And Vomiting) RF: 0 acyclovir 400 mg tablet 400 mg PO TID RF: 0 Tylenol Arthritis 650 mg Tablet Extended Release 1,300 mg PO PRN RF: 0 levofloxacin 500 mg tablet 500 mg PO DAILY RF: 0 Tylenol PM Extra Strength 25-500 mg Tablet 2 tab PO PRN RF: 0 morphine 15 mg tablet 15 mg PO Q4H PRN (Reason: Pain) RF: 0 Vitamin B-12 1 tab PO DAILY RF: 0 Vitamin D3 1 cap PO DAILY RF: 0 prednisone 20 mg tablet 20 mg PO DAILY RF: 0 finasteride 5 mg tablet 5 mg PO BEDTIME RF: 0 tramadol 50 mg Tablet 50 mg PO Q6H PRN (Reason: Pain, Moderate) RF: 0 multivitamin [Multiple Vitamins] Tablet 1 tab PO DAILY RF: 0 cetirizine 10 mg tablet 10 mg PO BEDTIME RF: 0 tamsulosin 0.4 mg capsule 0.8 mg PO BEDTIME RF: 0 omeprazole 20 mg capsule,delayed release(DR/EC) 20 mg PO DAILY PRN (Reason: Acid Reflux) RF: 0 potassium gluconate 595 mg (99 mg) Tablet 595 mg PO BEDTIME RF: 0 Probiotic 3 billion cell Capsule 1 cap PO BEDTIME Qty: 0 RF: 0 Robitussin Cough-Chest [place] DM 10-200 mg capsule 1 tab-cap PO Q8H PRN (Reason: cough) Qty: 14 RF: 0 Referrals: Augusto Gu DO [Primary Care Provider] - Erik Fallon MD [Hospitalist] - Transfer Attestations Time Spent in Transfer Care*: greater than 30 min Status at Transfer: Cognitive status at transfer: cognitively intact, Behavioral status at transfer: cooperative, Quality Metrics Clinical Quality Measures: During this hospital stay, did patient experience: None Coding Level of Care Code Acute Staff Development Manager for Chg Fwd Diagnoses Fever R50.9 Pancytopenia D61.818 Generalized weakness R53.1 TRIXIE (acute kidney injury) N17.9 Elevated d-dimer R79.89
[2021-04-14] MEDS: acetaminophen 325 mg Tablet 650 MG PO (17:47)
--- NOTE | 2021-04-14 18:26 | PC.NURSE ---
Report called to Mercedes Scott RN at [facility].
[2021-04-14 19:14] LABS: Creatine Phosphokinase 13 U/L (39-308)
--- NOTE | 2021-04-14 21:11 | PC.NURSE ---
[facility] here to take patient at 1900.
[2021-04-16 21:33] LABS: Fungitell 1-3-B Glucan Assay <31; Interpretation NEGATIVE
== END 2021-04-14 19:00 | disposition short-term general hospital (02) | DRG 871 ==
LOC: ER 16:47 → MEDSURG 21:08
PROVIDERS: Hospitalist; Admitting Provider Internal Medicine; Emergency Provider Emergency Medicine; PCP Emergency Medicine Emergency Medical Services; Visit Provider Internal Medicine
DX: A41.9 Sepsis, unspecified organism (principal); J18.9 Pneumonia, unspecified organism; J96.01 Acute respiratory failure with hypoxia; Z94.84 Stem cells transplant status; N13.8 Other obstructive and reflux uropathy; J98.11 Atelectasis; N39.0 Urinary tract infection, site not specified; N17.9 Acute kidney failure, unspecified; D61.818 Other pancytopenia; D80.1 Nonfamilial hypogammaglobulinemia; Z85.72 Personal history of non-Hodgkin lymphomas; N20.0 Calculus of kidney; Z87.442 Personal history of urinary calculi; N40.1 Benign prostatic hyperplasia with lower urinary tract symptoms; R39.14 Feeling of incomplete bladder emptying; M19.90 Unspecified osteoarthritis, unspecified site; K21.9 Gastro-esophageal reflux disease without esophagitis; E78.5 Hyperlipidemia, unspecified; I10 Essential (primary) hypertension; D50.9 Iron deficiency anemia, unspecified; Z87.01 Personal history of pneumonia (recurrent); Z87.891 Personal history of nicotine dependence; D75.9 Disease of blood and blood-forming organs, unspecified; Z79.891 Long term (current) use of opiate analgesic; J43.9 Emphysema, unspecified; D69.6 Thrombocytopenia, unspecified; F41.9 Anxiety disorder, unspecified; M79.669 Pain in unspecified lower leg; E86.0 Dehydration; N47.1 Phimosis
CPT/HCPCS: 36415; 36600; 71045; 78014; 80051; 80053; 81001; 82330; 82533; 82550; 82805; 83605; 83735; 83880; 84443; 84484; 85007; 85025; 85378; 85610; 85730; 86403; 87040; 87086; 87305; 87426; 87449; 93005; 93971; 96360; 96361; 96372; 97161; 97167; 97530; 99285; A9540; A9567; J0692; J1650; J2270; J3370; J7030; J7040; Q0162